=== PATIENT | female | born 1950 | race Caucasian/White ===

== ENCOUNTER 2019-12-31 09:37 | Outpatient (CLI) | payer OTHER, SELFPAY ==
--- NOTE | ~2019-12-31 | MM_ITS ---
EXAMINATION: MM screening [facility] BI w julián HISTORY: Screening mammogram TECHNIQUE: Craniocaudal and mediolateral oblique 3-D tomosynthesis images were obtained and synthetic 2-D images were generated. CAD analysis was submitted and interpreted. COMPARISON: 09/14/2018, 06/24/2017, 06/07/2016 BREAST PARENCHYMAL COMPOSITION: There are scattered areas of fibroglandular density. FINDINGS: Scattered benign-appearing calcifications are present. There is no evidence of suspicious m ass, calcification, or architectural distortion to suggest malignancy in either breast. There has bee n no suspicious interval change. IMPRESSION: 1. No mammographic evidence of malignancy. 2. Recommend routine screening mammography in one year. BI-RADS Category 2: Benign finding(s). Reviewed, dictated and finalized at location A.
== END 2019-12-31 09:38 | disposition home or self-care (01) ==
LOC: ANHIMG 09:39
PROVIDERS: PCP Physician Assistant; Visit Provider Nurse Practitioner Obstetrics & Gynecology
DX: Z12.31 Encounter for screening mammogram for malignant neoplasm of breast (principal)
CPT/HCPCS: 77063; 77067

== ENCOUNTER 2020-05-12 07:36 | Outpatient (CLI) | payer OTHER, SELFPAY ==
--- NOTE | ~2020-05-12 | DEXA_ITS ---
Bone Density Report Name: Liz Chun Age: 69 Sex: Female Ethnicity: White Date of : 1950 Indication: postmenopausal; height loss; Referring Provider: Zaynab, Jessica Torres Study: Bone densitometry was performed. Exam Date: May 12, 2020 Accession number: [id number] Bone Density: Region BMD T-score Z-score Classification AP Spine (L1-L4) 0.831 -2.0 0.1 Osteopenia Femoral Neck (Left) 0.582 -2.4 -0.7 Osteopenia Total Hip (Left) 0.712 -1.9 -0.5 Osteopenia Total Hip Bilateral Avg 0.699 -2.0 -0.6 Osteopenia Femoral Neck (Right) 0.582 -2.4 -0.7 Osteopenia Total Hip (Right) 0.684 -2.1 -0.7 Osteopenia World Health Organization criteria for BMD impression classify patients as: Normal (T-score at or above -1.0), Osteopenia (T-score between -1.0 and -2.5), or Osteoporosis (T-score at or below -2.5). 10-year Fracture Risk(1): Major Osteoporotic Fracture 13% Hip Fracture 2.9% Reported Risk Factors: [place] (), Neck BMD=0.582, BMI=23.4 (1) FRAX(R) Version 3.08. Fracture probability calculated for an untreated patient. Fracture probability may be lower if the patient has received treatment. Clinical Information Provided by Patient: Has used the following medications: Vitamin D, Calcium Patient maximum height was 63 Menopause Age: 46 Does not regularly consume dairy products Onset of menses at age 13 Number of children 2 Impression: The patient has low bone mass, based on the Left Femoral Neck T-score. The patient has an estimated ten-year risk of hip fracture of 2.9% and an estimated ten-year risk of major fracture of 13%, based on the WHO FRAX algorithm. Discussion: BONE DENSITY IS LOW AT ONE OR MORE SKELETAL SITES. This patient's lowest T-score is low at one or more skeletal sites. It meets the World Health Organization's (WHO) criteria for ?low bone mass? (T-score between -1.0 and -2.5). The patient's 10-year risk of fracture as calculated by FRAX is less than the threshold where pharmacological therapy is recommended by the National Osteoporosis Foundation (NOF). However, all treatment decisions require clinical judgment and consideration of individual patient factors, including patient preferences, comorbidities, previous drug use, risk factors not captured in the FRAX model (e.g., frailty, falls, vitamin D deficiency, increased bone turnover, interval significant decline in bone density) and possible under or overestimation of fracture risk by FRAX. The patient should follow a healthful lifestyle (good nutrition with adequate calcium and vitamin D, and appropriate weight-bearing exercise). Follow-Up: Consider repeating this study in 2 to 3 years to reassess this patient's status, or sooner if there is some new clinical indication. Reported by: TANMAY on 05/12/2020 8:01:00 AM.
== END 2020-05-12 07:37 | disposition home or self-care (01) ==
LOC: ANHIMG 07:40
PROVIDERS: PCP Physician Assistant; Visit Provider Nurse Practitioner Obstetrics & Gynecology
DX: Z78.0 Asymptomatic menopausal state (principal); M85.852 Other specified disorders of bone density and structure, left thigh; M85.851 Other specified disorders of bone density and structure, right thigh
CPT/HCPCS: 77080

== ENCOUNTER 2021-05-03 09:09 | Outpatient (CLI) | payer OTHER, SELFPAY ==
--- NOTE | ~2021-05-03 | MM_ITS ---
EXAMINATION: MM screening [facility] BI w julián HISTORY: Screening mammogram TECHNIQUE: Craniocaudal and mediolateral oblique 3-D tomosynthesis images were obtained and synthetic 2-D images were generated. CAD analysis was submitted and interpreted. COMPARISON: 12/31/2019, 09/14/2018, 06/24/2017 BREAST PARENCHYMAL COMPOSITION: There are scattered areas of fibroglandular density. FINDINGS: Scattered benign-appearing calcifications are present. There is no evidence of suspicious m ass, calcification, or architectural distortion to suggest malignancy in either breast. There has bee n no suspicious interval change. IMPRESSION: 1. No mammographic evidence of malignancy. 2. Recommend routine screening mammography in one year. BI-RADS Category 2: Benign finding(s). Reviewed, dictated and finalized at location A. 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
== END 2021-05-03 09:10 | disposition home or self-care (01) ==
LOC: ANHIMG 09:10
PROVIDERS: PCP Physician Assistant; Visit Provider Nurse Practitioner Obstetrics & Gynecology
DX: Z12.31 Encounter for screening mammogram for malignant neoplasm of breast (principal)
CPT/HCPCS: 77063; 77067

== ENCOUNTER 2022-01-21 03:42 | Emergency (ER) | payer OTHER, SELFPAY ==
--- NOTE | ~2022-01-21 | CT_ITS ---
EXAMINATION: CT abdomen pelvis wo con DATE: 01/21/2022 04:19 INDICATION: Hematuria. Dysuria. TECHNIQUE: Computed tomography (CT) of the abdomen and pelvis was performed without intravenous contr ast. Automated exposure control and iterative reconstruction technique were employed. The dose-length product was 265.79 mGy-cm. COMPARISON: None. FINDINGS: The visualized portions of the lung bases demonstrate minimal atelectasis. No pleural effus ion. The heart size is normal. No pericardial effusion. There is a small sliding hiatal hernia. The l iver and gallbladder are normal. There is a 2.0 cm cyst in the spleen. The pancreas, adrenal glands, and kidneys are normal. There is no urolithiasis. There is diverticulosis of the colon without eviden ce of diverticulitis. The appendix is not visualized. There are no pathologically enlarged lymph node s. There is no free intraperitoneal fluid. There is mild lumbar spondylosis. IMPRESSION: 1. Small sliding hiatal hernia. Reviewed, dictated and finalized at location A. 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
[2022-01-21 03:44] VITALS: BP 160/86; PULSE 84; RESP 16; TEMP 36.4; O2SAT 100
--- NOTE | 2022-01-21 03:55 | ED.FEMALEGU ---
HPI - Female Genitourinary General Chief complaint: Urogenital-Female Stated complaint: pain bleeding on urination Time Seen by Provider: 01/21/22 03:51 History of Present Illness HPI Narrative: 71-year-old female with remote history of kidney stone many years ago and UTI also many years ago presents with sudden onset dysuria and hematuria and abdominal pain and feeling of not be able to fully empty her bladder, as well as increased frequency. No fevers or chills, no nausea or vomiting Related Data Allergies Allergy/AdvReac Type Severity Reaction Status Date / Time No Known Allergies Allergy Unknown Unverified 12/04/18 09:09 Review of Systems Review of Systems: CONST: No fever. HEENT: No sore throat C/V: No chest pain RESP: No cough GI: Reports abdominal pain : Dysuria. M/S: No joint pain. SKIN: No rash. NEURO: [No headache or focal numbness or weakness] PSYCH: [No depression] [facility] Past Medical History Medical History (Updated 01/21/22 @ 06:10 by Jyoti Broderick MD) Nephrolithiasis Social History Social History (Updated 01/21/22 @ 03:58 by Jyoti Broderick MD) Smoking status: Never smoker Exam Narrative: EXAMINATION OF ORGAN SYSTEMS/BODY AREAS: Constitutional: Vital signs per nursing GENERAL:[No acute distress, non-toxic appearing.] HEAD: Normal with no signs of head trauma. EYES: EOMI, conjunctiva normal ENT: Hearing grossly intact LUNGS: Nonlabored breathing. HEART: [Regular rate and rhythm] ABD: [Soft], very minimally [tender to palpation] suprapubic BACK: No CVA tenderness EXT: Normal range of motion SKIN: [No rashes or lesions.] NEURO: [Alert and oriented x 3. No gross focal sensory or strength deficits.] PSYCH: Normal affect Course Vital Signs Vital signs: Vital Signs Temperature 97.6 F 01/21/22 03:44 Pulse Rate 84 01/21/22 03:44 Respiratory Rate 16 01/21/22 03:44 Blood Pressure 160/86 H 01/21/22 03:44 Pulse Oximetry 100 01/21/22 03:44 Oxygen Delivery Room Air 01/21/22 03:44 Temperature 97.6 F 01/21/22 03:44 Pulse Rate 84 01/21/22 03:44 Respiratory Rate 16 01/21/22 03:44 Blood Pressure 160/86 H 01/21/22 03:44 Pulse Oximetry 100 01/21/22 03:44 Oxygen Delivery Room Air 01/21/22 03:44 MDM - Female Genitourinary MDM Narrative Medical decision making narrative: 71 year-old patient presenting with suprapubic pain and urinary symptoms consistent with UTI, however given the sudden onset of discomfort and hematuria I will also obtain CT to rule out stone. Urinalysis is obtained and positive for signs of infection. Urine culture sent. Patient started on ceftriaxone, on re-evaluation is now resting comfortably and symptoms much improved. CT does not show any stone or other abnormality. She is given a prescription for antibiotics. She is strongly advised to return for any increasing or worsening pain, fevers or vomiting. They expressed understanding of instructions and is discharged in stable condition. Procedures: Pulse oximetry interpretation - not hypoxic. Review of medical records. Lab Data Result diagrams: 01/21/22 04:40 01/21/22 04:40 Labs: Lab Results 01/21/22 01/21/22 01/21/22 Range/Units 03:57 04:40 04:40 WBC 10.1 H (4.5-10.0) K/mm3 RBC 4.67 (4.2-5.4) M/mm3 Hgb 14.0 (12.0-15.0) g/dL Hct 42.0 (37.0-47.0) % MCV 89.9 (80-100) fl MCH 30.0 (26-34) pg MCHC 33.3 (32-36) g/dl RDW 13.1 (11.5-14.5) % Plt Count 190 (150-375) k/mm3 MPV 9.2 (7.4-10.4) fl Immature Gran % (Auto) 0.3 (0-0.5) % Neut % (Auto) 75.6 H (45.5-73.1) % Lymph % (Auto) 17.9 L (18.3-44.2) % [place] % (Auto) 5.5 (2.6-8.5) % Eos % (Auto) 0.5 (0-4.4) % Baso % (Auto) 0.2 (0.2-1.2) % Lymph # (Auto) 1.80 (0.9-3.2) K/mm3 [place] # (Auto) 0.6 (0.1-0.6) K/mm3 Eos # (Auto) 0.1 (0-0.3) K/mm3 Baso # (Auto) 0.0 (0.0-0.1) K/mm3 Abs Immat Gran (auto) 0.03
[2022-01-21 04:05] LABS: Add Urine Microscopic? YES; Appearance Urine Clear (Clear); Bilirubin Urine 3+ (Negative); Blood Urine 3+ (Negative); Color Urine Red (Yellow); Glucose Urine UA Negative (Negative); Ketones Urine 1+ mg/dL (Negative); Leukocyte Esterase Ur 3+ LEU/UL (Negative); Nitrate Urine Positive (Negative); Protein Urine 3+ mg/dL (Negative); Specific Grav Ur 1.015 (1.001-1.035); pH Urine 5.5 (5.0-9.0)
[2022-01-21 04:10] LABS: Bacteria Urine Trace /hpf; Mucus Urine Rare /lpf; RBC Urine >75 /hpf (0-2); WBC Clumps Urine Present /HPF; WBC Urine >75 /hpf
[2022-01-21] MEDS: cefTRIAXone 2 GM in SODIUM CHLORIDE 0.9% IV 100 ML 200 ML IVPB (04:42)
[2022-01-21] MEDS: SODIUM CHLORIDE 0.9% IV 1,000 ML 999 ML IV CONT (04:44)
[2022-01-21 04:48] LABS: Basophils Percent Auto 0.2 % (0.2-1.2); Eosinophils Absolute Auto 0.1 K/mm3 (0-0.3); Eosinophils Percent Auto 0.5 % (0-4.4); Immature Granulocyte Absolute 0.03 K/mm3 (0.00-0.031); Immature Granulocyte Percent A 0.3 % (0-0.5); Lymphocytes Percent Auto 17.9 % (18.3-44.2); Mean Corpuscular HGB Conc 33.3 g/dl (32-36); Mean Corpuscular Volume 89.9 fl (80-100); Mean Platelet Volume 9.2 fl (7.4-10.4); Monocytes Absolute Auto 0.6 K/mm3 (0.1-0.6); Monocytes Percent Auto 5.5 % (2.6-8.5); Neutrophils Absolute Auto 7.6 K/mm3 (1.3-6.7); Neutrophils Percent Auto 75.6 % (45.5-73.1); Platelet Count Result 190 k/mm3 (150-375); Red Blood Count 4.67 M/mm3 (4.2-5.4); Red Cell Distribution Width 13.1 % (11.5-14.5); White Blood Count 10.1 K/mm3 (4.5-10.0)
[2022-01-21 04:58] LABS: Anion Gap 8 mmol/L (8-16); Blood Urea Nitrogen 12 mg/dL (7-17); Calcium 9.4 mg/dL (8.4-10.2); Carbon Dioxide 27 mmol/L (22-30); Chloride 103 mmol/L (98-107); Estimated CRCL calculation 72 ml/min; Estimated Glomerular Filt Rate > 60; Glucose 106 mg/dL (65-110); Potassium 3.6 mmol/L (3.4-5.0); Sodium 138 mmol/L (137-145)
[2022-01-21] MEDS: MORPHINE SULFATE (*CRX) 4 MG/ML INJ IV PUSH (05:08)
[2022-01-21 06:43] VITALS: BP 139/69; PULSE 74; RESP 18; O2SAT 99
== END 2022-01-21 06:45 | disposition home or self-care (01) ==
PROVIDERS: Emergency Provider Emergency Medicine; PCP Physician Assistant
DX: N39.0 Urinary tract infection, site not specified (principal); Z87.442 Personal history of urinary calculi; K44.9 Diaphragmatic hernia without obstruction or gangrene
CPT/HCPCS: 36415; 74176; 80048; 81001; 85025; 87077; 87086; 87186; 96361; 96365; 96375; 99284; J0696; J2270; J7030

== ENCOUNTER 2022-06-27 07:48 | Outpatient (CLI) | payer OTHER, SELFPAY ==
--- NOTE | ~2022-06-27 | MM_ITS ---
EXAMINATION: MM screening [facility] BI w julián HISTORY: Screening mammogram TECHNIQUE: Craniocaudal and mediolateral oblique 3-D tomosynthesis images were obtained and synthetic 2-D images were generated. CAD analysis was submitted and interpreted. COMPARISON: 05/03/2021, 12/31/2019, 09/14/2018 bilateral screening mammogram examinations BREAST PARENCHYMAL COMPOSITION: There are scattered areas of fibroglandular density. FINDINGS: Relatively high density circumscribed approximately 5 mm mass in the posterior upper central left ellyn ast, suspicious. Diagnostic left mammogram and left breast ultrasound examination are recommended. Small stable bilateral axillary tail circumscribed benign-appearing lymph nodes. No other suspicious mass, architectural distortion, malignant calcification, skin thickening or retra ction is evident. Scattered bilateral benign calcifications. IMPRESSION: 1. New suspicious 5 mm circumscribed mass posteriorly in the upper central left breast 2. Diagnostic left mammogram and left breast ultrasound examination are recommended BI-RADS Category 0: Incomplete: Needs additional imaging evaluation. Reviewed, dictated and finalized at location A. IMPRESSION: 1. New suspicious 5 mm circumscribed mass posteriorly in the upper central left breast 2. Diagnostic left mammogram and left breast ultrasound examination are recomme nded BI-RADS Category 0: Incomplete: Needs additional imaging evaluation.
== END 2022-06-27 07:49 | disposition home or self-care (01) ==
LOC: ANHIMG 07:49
PROVIDERS: PCP Physician Assistant; Visit Provider Physician Assistant
DX: Z12.31 Encounter for screening mammogram for malignant neoplasm of breast (principal); N63.25 Unspecified lump in the left breast, overlapping quadrants
CPT/HCPCS: 77063; 77067

== ENCOUNTER 2022-07-23 13:34 | Outpatient (CLI) | payer OTHER, SELFPAY ==
--- NOTE | ~2022-07-23 | MMUS_ITS ---
EXAMINATION: MM diagnostic [facility]ara LT w julián, US breast LT limited HISTORY: Left breast mass on screening mammogram TECHNIQUE: Additional 3-D tomosynthesis images of the left breast were performed and synthetic 2-D im ages were generated. CAD analysis was submitted and interpreted. High resolution limited left breast ultrasound was performed. COMPARISON: 06/27/2022, 05/03/2021, 12/31/2019, 09/14/2018 FINDINGS: MAMMOGRAPHIC FINDINGS: There is a 6 mm oval, circumscribed, equal density mass in the posterior third of the upper breast at the 12:00 location 13 cm from the nipple. No suspicious calcification or architectural distortion ar e identified. ULTRASOUND: There is no evidence of focal abnormal solid or cystic mass in the vicinity of the mammographic findi ng in question. IMPRESSION: 1. Indeterminate left breast mass without sonographic correlate. 2. Stereotactic biopsy is recommended. BI-RADS category 4, suspicious findings. Reviewed, dictated and finalized at location A. IMPRESSION: 1. Indeterminate left breast mass without sonographic correlate. 2. Stereotactic biopsy is recommended. BI-RADS category 4, suspicious findings.
== END 2022-07-23 13:35 | disposition home or self-care (01) ==
PROVIDERS: PCP Physician Assistant; Visit Provider Physician Assistant
DX: R92.8 Other abnormal and inconclusive findings on diagnostic imaging of breast (principal)
CPT/HCPCS: 76642; 77061; 77065; G0279

== ENCOUNTER 2022-08-16 08:42 | Outpatient (CLI) | payer OTHER, SELFPAY ==
--- NOTE | ~2022-08-16 | DEXA_ITS ---
Bone Density Report Name: YOLI CHAVARRIA Age: 72 Sex: Female Ethnicity: White Date of : 1950 Indication: osteopenia; height loss; postmenopausal Referring Provider: VICENTE, CHERYL Study: Bone densitometry was performed. Exam Date: August 16, 2022 Accession number: [id number] Bone Density: Region BMD T-score Z-score Classification AP Spine(L1-L4) 0.853 -1.8 0.4 Osteopenia Femoral Neck (Left) 0.554 -2.7 -0.8 Osteoporosis Total Hip (Left) 0.696 -2.0 -0.5 Osteopenia Femoral Neck (Right) 0.556 -2.6 -0.8 Osteoporosis Total Hip (Right) 0.708 -1.9 -0.4 Osteopenia Total Hip Mean 0.702 -2.0 -0.5 Osteopenia World Health Organization criteria for BMD impression classify patients as: Normal (T-score at or above -1.0), Osteopenia (T-score between -1.0 and -2.5), or Osteoporosis (T-score at or below -2.5). 10-year Fracture Risk: FRAX not reported because: Some T-score for Spine Total or Hip Total or Femoral Neck at or below -2.5 Previous Exams: Region Exam Age BMD T-score BMD Change BMD Change Date g/cm2 vs Baseline vs Previous AP Spine (L1-L4) 08/16/2022 72 0.853 -1.8 0.022 (2.7%) 0.022 (2.7%) 05/12/2020 69 0.831 -2.0 Total Hip(Left) 08/16/2022 72 0.696 -2.0 -0.016 (-2.2%) -0.016 (-2.2%) 05/12/2020 69 0.712 -1.9 Total Hip(Right) 08/16/2022 72 0.708 -1.9 0.024 (3.5%) 0.024 (3.5%) 05/12/2020 69 0.684 -2.1 *Denotes significance at 95% confidence level, LSC for AP Spine = 0.022 g/cm2, LSC for Total Hip = 0.027 g/cm2 Clinical Information Provided by Patient: Has used the following medications: Evista (i.e. raloxifene), Vitamin D, Calcium Patient maximum height was 62 Menopause Age: 46 Does not regularly consume dairy products Onset of menses at age 13 Number of children 2 Impression: The patient has osteoporosis, based on the Left Femoral Neck T-score. No significant bone loss was observed. Discussion: INCREASED RISK OF FRACTURE. BONE DENSITY IS UNDESIRABLY LOW AT ONE OR MORE SKELETAL SITES, CONSISTENT WITH POSTMENOPAUSAL OSTEOPOROSIS. This patient's lowest T-score meets the World Health Organization's (WHO) criteria for osteoporosis at one or more sites (T-score -2.5 or below). In untreated patients, the risk of osteoporotic fracture increases approximately two-fold for each 1.0 SD decrease in T-score. Low bone density is not the only risk factor for fracture; also consider factors such as patient's age, fr
== END 2022-08-16 08:43 | disposition home or self-care (01) ==
PROVIDERS: PCP Physician Assistant; Visit Provider Physician Assistant
DX: Z78.0 Asymptomatic menopausal state (principal); M85.88 Other specified disorders of bone density and structure, other site; M81.0 Age-related osteoporosis without current pathological fracture; M85.852 Other specified disorders of bone density and structure, left thigh; M85.851 Other specified disorders of bone density and structure, right thigh
CPT/HCPCS: 77080

== ENCOUNTER 2023-10-01 15:04 | Outpatient (CLI) | payer OTHER, SELFPAY ==
--- NOTE | ~2023-10-01 | MM_ITS ---
EXAMINATION: MM screening [facility] BI w julián HISTORY: Screening TECHNIQUE: Craniocaudal and mediolateral oblique 3-D tomosynthesis images were obtained and synthetic 2-D images were generated. CAD analysis was submitted and interpreted. COMPARISON: Comparison to multiple prior studies sequentially, with oldest reviewed study dated 06/24. BREAST PARENCHYMAL COMPOSITION: Not dense: There are scattered areas of fibroglandular density. FINDINGS: The right breast is stable without evidence for malignancy. There are benign breast calcifi cations. There are developing masses in the upper outer quadrant of the left breast. IMPRESSION: 1. Developing left breast masses, upper outer quadrant posteriorly. 2. Additional mammographic views and possible breast ultrasound are recommended. BI-RADS Category 0: Incomplete: Needs additional imaging evaluation. Reviewed, dictated and finalized at location B. IMPRESSION: 1. Developing left breast masses, upper outer quadrant posteriorly. 2. Additional mammographic views and possible breast ultrasound are recommended . BI-RADS Category 0: Incomplete: Needs additional imaging evaluation.
== END 2023-10-01 15:05 | disposition home or self-care (01) ==
LOC: ANHIMG 15:04
PROVIDERS: PCP Physician Assistant; Visit Provider Physician Assistant
DX: Z12.31 Encounter for screening mammogram for malignant neoplasm of breast (principal); N63.21 Unspecified lump in the left breast, upper outer quadrant; R92.8 Other abnormal and inconclusive findings on diagnostic imaging of breast
CPT/HCPCS: 77063; 77067

== ENCOUNTER 2023-10-21 10:46 | Outpatient (CLI) | payer OTHER, SELFPAY ==
--- NOTE | ~2023-10-21 | MMUS_ITS ---
EXAMINATION: MM diagnostic sara LT w julián, US breast LT complete HISTORY: Follow-up left breast masses TECHNIQUE: Additional 3-D tomosynthesis images of the left breast were performed and synthetic 2-D im ages were generated. CAD analysis was submitted and interpreted. High resolution complete left breast ultrasound was performed. COMPARISON: Comparison to multiple prior studies sequentially, with oldest reviewed study dated 09/14/2018. BREAST PARENCHYMAL COMPOSITION: Not dense: There are scattered areas of fibroglandular density. FINDINGS: MAMMOGRAPHIC FINDINGS: There are multiple masses in the upper outer quadrant of the left breast in the subareolar location w hich are circumscribed radiolucent centrally, likely benign. There are scattered benign-appearing lef t breast calcifications. ULTRASOUND: Complete US of all 4 quadrants of the breast/s and retroareolar region was reviewed. At 12:00 in the subareolar location there is a 4 mm cyst. At 2:00, 7 cm from the nipple there is a 6 mm intramammary lymph node. No suspicious masses to suggest malignancy. IMPRESSION: 1. No evidence for malignancy in the left breast. Benign findings. 2. Routine yearly screening mammogram and regular clinical breast examination are recommended. BI-RADS Category 2: Benign finding(s). Reviewed, dictated and finalized at location B. IMPRESSION: 1. No evidence for malignancy in the left breast. Benign findings. 2. Routine yearly screening mammogram and regular clinical breast examination a re recommended. BI-RADS Category 2: Benign finding(s).
== END 2023-10-21 10:47 | disposition home or self-care (01) ==
PROVIDERS: PCP Physician Assistant; Visit Provider Physician Assistant
DX: R92.8 Other abnormal and inconclusive findings on diagnostic imaging of breast (principal)
CPT/HCPCS: 76641; 77061; 77065; G0279

== ENCOUNTER 2023-11-15 07:19 | Emergency (ER) | payer OTHER, SELFPAY ==
--- NOTE | ~2023-11-15 | CT_ITS ---
EXAMINATION: CT abdomen pelvis w con DATE: 11/15/2023 08:19 INDICATION: Right upper quadrant abdominal pain TECHNIQUE: Computed tomography (CT) of the abdomen and pelvis was performed with 100 mL Omnipaque-350 intravenous contrast. Automated exposure control and iterative reconstruction technique were employe d. The dose-length product was 200.87 mGy-cm. COMPARISON: 01/21/2022 FINDINGS: Mild discoid atelectasis at the lingula. Heart size is normal. No pericardial or pleural effusion. Sm all sliding-type hiatal hernia. Gallbladder is dilated to 4.6 cm but without evident wall thickening or pericholecystic inflammatory stranding to suggest acute cholecystitis. Common bile duct is dilated to 9 mm diameter and there is mild central intrahepatic ductal or ductal dilation. Interval developm ent of pancreatic atrophy and dilation of the main pancreatic duct at the body and tail the pancreas measuring up to 6 mm in maximal diameter and which terminates at a 2.4 x 1.7 cm hypoenhancing mass at the neck of the pancreas which is concerning for primary pancreatic cancer. Additional 13 mm hypoenh ancing mass at the head of the pancreas. Unchanged 2.1 cm splenic cyst. Bilateral adrenal glands and kidneys are normal. There is mild colonic diverticulosis with a sigmoid predominance. There is no ad jacent inflammatory change to suggest diverticulitis. Bladder, anteverted uterus and bilateral adnexa are unremarkable. No free intraperitoneal gas or fluid. No pathologically enlarged abdominal or pelv ic lymphadenopathy. Bones are unremarkable. IMPRESSION: 1. Couple hyperenhancing mass at the head and neck the pancreas the larger measuring 2.4 x 1.7 cm whi ch are concerning for pancreatic cancer and results in both biliary and pancreatic ductal dilation. C orrelate for tumor markers and consider either ERCP or endoscopic ultrasound guided biopsy. 2. Gallbladder dilated to 4.6 similar likely related to the biliary ductal dilation with no wall thic kening or pericholecystic inflammatory change to suggest acute cholecystitis. 3. Small sliding-type hiatal hernia. Reviewed, dictated and finalized at location A. IMPRESSION: 1. Couple hyperenhancing mass at the head and neck the pancreas the larger salma uring 2.4 x 1.7 cm which are concerning for pancreatic cancer and results in joseph th biliary and pancreatic ductal dilation. Correlate for tumor markers and cons ider either ERCP or endoscopic ultrasound guided biopsy. 2. Gallbladder dilated to 4.6 similar likely related to the biliary ductal dila tion with no wall thickening or pericholecystic inflammatory change to suggest acute cholecystitis. 3. Small sliding-type hiatal hernia.
[2023-11-15 07:32] VITALS: BP 149/82; PULSE 94; RESP 13; O2SAT 100
--- NOTE | 2023-11-15 07:35 | ECG_ITS ---
Test Date: 2023-11-15 07:38:49 Measurements Intervals [place] Rate: 84 P: 36 LA: 192 QRS: 9 QRSD: 101 T: 43 QT: 390 QTc: 464 Interpretive Statements SINUS RHYTHM LOW QRS VOLTAGE IN PRECORDIAL LEADS CONSIDER INFERIOR INFARCT, AGE INDETERMINATE BASELINE ARTIFACT- I, III, AVR, AVL, V4-V5 ABNORMAL ECG No previous ECG available for comparison Electronically Signed On 11-15-2023 07:54:20 CDT by Lele Hodges D.O.
[2023-11-15 07:43] LABS: Basophils Percent Auto 0.5 % (0.2-1.2); Eosinophils Percent Auto 0.5 % (0-4.4); Hemoglobin 16.2 g/dL (12.0-15.0); Immature Granulocyte Absolute 0.02 K/mm3 (0.00-0.031); Immature Granulocyte Percent A 0.2 % (0-0.5); Lymphocytes Absolute Auto 2.41 K/mm3 (0.9-3.2); Lymphocytes Percent Auto 29.4 % (18.3-44.2); Mean Corpuscular HGB Conc 33.1 g/dl (32-36); Mean Corpuscular Hemoglobin 30.4 pg (26-34); Mean Corpuscular Volume 91.9 fl (80-100); Mean Platelet Volume 9.5 fl (7.4-10.4); Monocytes Absolute Auto 0.6 K/mm3 (0.1-0.6); Monocytes Percent Auto 7.2 % (2.6-8.5); Neutrophils Absolute Auto 5.1 K/mm3 (1.3-6.7); Neutrophils Percent Auto 62.2 % (45.5-73.1); Platelet Count Result 236 k/mm3 (150-375); Red Blood Count 5.33 M/mm3 (4.2-5.4); Red Cell Distribution Width 12.9 % (11.5-14.5); White Blood Count 8.2 K/mm3 (4.5-10.0)
[2023-11-15 07:44] VITALS: BP 168/82; PULSE 81; RESP 16; TEMP 36.6; O2SAT 100
--- NOTE | 2023-11-15 07:50 | ED.GENADULT ---
HPI - General Adult General Chief complaint: Weakness Stated complaint: sick for a week Time Seen by Provider: 11/15/23 07:28 History of Present Illness HPI narrative: Patient is a 73-year-old female who presents ER with weakness. Over last week she has been feeling more fatigued. She had nausea and vomiting about 5 days ago. She has had some aching in her upper abdomen that radiates to the right side. No fevers or chills or sweats. No chest pain. She has missed some acid reflux medication dosages due to her nausea and vomiting. Patient was also recently diagnosed diabetic and has been trialing different medications. Related Data Allergies Allergy/AdvReac Type Severity Reaction Status Date / Time No Known Allergies Allergy Unknown Unverified 12/04/18 09:09 Review of Systems Review of Systems: All systems reviewed & are unremarkable except as noted in HPI and below Constitutional: Constitutional: Reports no additional constitutional complaints ENT: Reports system reviewed and no additional complaints, except as documented Cardiovascular: Cardiovascular: Reports no additional cardiovascular complaints Respiratory: Respiratory: Reports no additional respiratory complaints Gastrointestinal: Gastrointestinal: Reports abdominal pain, Denies heartburn, Reports nausea and Reports vomiting PMFSH Past Medical History Medical History (Updated 11/15/23 @ 10:16 by Venkat Dawson MD) Diabetes Nephrolithiasis Social History Social History (Updated 01/21/22 @ 03:58 by Jyoti Broderick MD) Smoking status: Never smoker Exam Narrative: GENERAL: Well-appearing, well-nourished, and in no acute distress. HEAD: Normocephalic, atraumatic. ENT: Mucous membranes moist. CHEST: Clear to auscultation. No respiratory distress. HEART: Regular rate and rhythm. Normal peripheral pulses. ABDOMEN: Soft, nontender, nondistended. EXTREMITIES: Normal range of motion. No edema. SKIN: Warm, dry, no rash. NEURO: Alert and oriented x3. PSYCH: Normal mood and affect. Course Course Emergency Course: 928: Informed of results. Discussed with Do. Accepted by Dr. Wright. Vital Signs Vital signs: Vital Signs Pulse Rate 94 11/15/23 07:32 Respiratory Rate 13 11/15/23 07:32 Blood Pressure 149/82 H 11/15/23 07:32 Pulse Oximetry 100 11/15/23 07:32 Temperature 97.7 F 11/15/23 09:31 Pulse Rate 96 11/15/23 09:31 Respiratory Rate 14 11/15/23 09:31 Blood Pressure 182/95 H 11/15/23 09:31 Pulse Oximetry 100 11/15/23 09:31 Oxygen Delivery Room Air 11/15/23 07:44 Medical Decision Making Vital Signs Vital Signs: Vital Signs Pulse Rate 94 11/15/23 07:32 Respiratory Rate 13 11/15/23 07:32 Blood Pressure 149/82 H 11/15/23 07:32 Pulse Oximetry 100 11/15/23 07:32 Temperature 97.7 F 11/15/23 09:31 Pulse Rate 96 11/15/23 09:31 Respiratory Rate 14 11/15/23 09:31 Blood Pressure 182/95 H 11/15/23 09:31 Pulse Oximetry 100 11/15/23 09:31 Oxygen Delivery Room Air 11/15/23 07:44 Lab Data 11/15/23 07:37 11/15/23 07:37 Labs: Lab Results 11/15/23 11/15/23 Range/Units 07:37 08:07 WBC 8.2 (4.5-10.0) K/mm3 RBC 5.33 (4.2-5.4) M/mm3 Hgb 16.2 H (12.0-15.0) g/dL Hct 49.0 H (37.0-47.0) % MCV 91.9 (80-100) fl MCH 30.4 (26-34) pg MCHC 33.1 (32-36) g/dl RDW 12.9 (11.5-14.5) % Plt Count 236 (150-375) k/mm3 MPV 9.5 (7.4-10.4) fl Immature Gran % (Auto) 0.2 (0-0.5) % Neut % (Auto) 62.2 (45.5-73.1) % Lymph % (Auto) 29.4 (18.3-44.2) % [place] % (Auto) 7.2 (2.6-8.5) % Eos % (Auto) 0.5 (0-4.4) % Baso % (Auto) 0.5 (0.2-1.2) % Lymph # (Auto) 2.41 (0.9-3.2) K/mm3 [place] # (Auto) 0.6 (0.1-0.6) K/mm3 Eos # (Auto) 0.0 (0-0.3) K/mm3 Baso # (Auto) 0.0 (0.0-0.1) K/mm3 Abs Immat Gran (auto) 0.02 (0.00-0.031) K/mm3 Absolute Neuts (auto) 5.1 (1.3-6.7) K/mm3 Absolute Nu
[2023-11-15 07:58] LABS: Alanine Aminotransferase 21 U/L (6-35); Albumin Level 4.7 g/dL (3.5-5.1); Alkaline Phosphatase 86 U/L (38-126); Anion Gap 12 mmol/L (4-12); Aspartate Amino Transferase 31 U/L (14-36); Bilirubin,Total 0.8 mg/dL (0.2-1.3); Blood Urea Nitrogen 5 mg/dL (7-17); Calcium 9.1 mg/dL (8.4-10.2); Carbon Dioxide 28 mmol/L (22-30); Chloride 93 mmol/L (98-107); Estimated CRCL calculation 52 ml/min; Estimated Glomerular Filt Rate > 60; Glucose 179 mg/dL (65-110); Lipase 52 U/L (23-300); Potassium 3.2 mmol/L (3.4-5.0); Sodium 133 mmol/L (137-145)
[2023-11-15 08:06] VITALS: BP 166/83; PULSE 81; RESP 20; TEMP 36.6; O2SAT 96
[2023-11-15 08:12] LABS: Add Urine Microscopic? NO; Appearance Urine Clear (Clear); Bilirubin Urine Negative (Negative); Blood Urine Negative (Negative); Color Urine Yellow (Yellow); Glucose Urine UA Trace mg/dL (Negative); Ketones Urine Trace mg/dL (Negative); Leukocyte Esterase Ur Negative LEU/UL (Negative); Nitrate Urine Negative (Negative); Protein Urine Negative (Negative); Specific Grav Ur 1.004 (1.001-1.035); Urobilinogen Urine 0.2 mg/dL (<2.0)
[2023-11-15 08:44] VITALS: BP 158/80; PULSE 89; RESP 14; TEMP 36.6; O2SAT 100
--- NOTE | 2023-11-15 09:28 | PC.NURSE ---
Pt accepted at [facility] Dr Wright [id number] Report [phone]
[2023-11-15 09:31] VITALS: BP 182/95; PULSE 96; RESP 14; TEMP 36.5; O2SAT 100
[2023-11-15 10:03] VITALS: BP 157/72; PULSE 86; RESP 19; TEMP 36.6; O2SAT 96
== END 2023-11-15 10:30 | disposition short-term general hospital (02) ==
PROVIDERS: Emergency Provider Emergency Medicine; PCP Physician Assistant
DX: K86.89 Other specified diseases of pancreas (principal); K83.1 Obstruction of bile duct; E11.9 Type 2 diabetes mellitus without complications; Z87.442 Personal history of urinary calculi; K44.9 Diaphragmatic hernia without obstruction or gangrene; R94.31 Abnormal electrocardiogram [ECG] [EKG]
CPT/HCPCS: 36415; 74177; 80053; 81003; 83690; 85025; 93005; 99285; Q9967

== ENCOUNTER 2024-05-27 10:14 | Outpatient (CLI) | payer OTHER, SELFPAY ==
--- NOTE | ~2024-05-27 | CT_ITS ---
EXAMINATION: CT abdomen pelvis w con DATE: 05/27/2024 13:45 INDICATION: Malignant neoplasm of the pancreas. TECHNIQUE: Computed tomography (CT) of the abdomen and pelvis was performed with 100 cc Omnipaque 350 intravenous contrast. The dose-length product was 254.35 mGy-cm. Automated exposure control and iter ative reconstruction technique were employed. COMPARISON: CT dated 11/15/2023 FINDINGS: There is right lower lobe airspace consolidation. There is atelectasis in the left lower lo bes. There is endobronchial thickening of the lower lobes. Findings suspicious for pneumonia. Small p leural effusions. There are localized areas of fluid adjacent to the esophagus in the lower thorax, l ikely ascites. There is moderate ascites. There is a stent in the common bile duct. There are persist ent ill-defined hypoenhancing masses of the pancreatic head and neck, consistent with known pancreati c malignancy. There is pancreatic ductal dilation. There is thickening of the gastric wall with small hiatal hernia. Cannot exclude gastritis. There is a low-density mass in the there are 3 new hypovasc ular masses of the right hepatic lobe, largest measures 1.7 cm, likely metastatic disease. There is a splenic cyst. The adrenal glands are unremarkable. There are subtle areas of hypoperfusion of the lo wer pole of the kidneys, suspicious for pyelonephritis or renal infarctions there is mild atheroscler osis without aneurysm. There is pneumobilia in the left hepatic lobe. There is mild intrahepatic bili aime dilatation of the right hepatic lobe. Gallbladder is present.. IMPRESSION: 1. Ill-defined hypovascular masses of the pancreatic head and neck, compatible with known pancreatic malignancy. Hypovascular lesions of the right hepatic lobe, concerning for metastatic disease. 2: Right lower lobe airspace consolidation with air bronchograms. Bilateral lower lobe atelectasis. F indings suspicious for pneumonia. 3: Small pleural effusions. 4:. Ascites. 5: Subtle areas of hypoperfusion bilaterally in the lower pole of the kidneys, suspicious for pyelone phritis versus renal infarctions. Reviewed, dictated and finalized at location A. IMPRESSION: 1. Ill-defined hypovascular masses of the pancreatic head and neck, compatible with known pancreatic malignancy. Hypovascular lesions of the right hepatic lobe, concerning for metastatic disea se. 2: Right lower lobe airspace consolidation with air bronchograms. Bilateral low er lobe atelectasis. Findings suspicious for pneumonia. 3: Small pleural effusions. 4:. Ascites. 5: Subtle areas of hypoperfusion bilaterally in the lower pole of the kidneys, suspicious for pyelonephritis versus renal infarctions.
[2024-05-27 11:14] LABS: Alanine Aminotransferase 62 U/L (6-35); Albumin Level 3.5 g/dL (3.5-5.1); Anion Gap 10 mmol/L (4-12); Aspartate Amino Transferase 112 U/L (14-36); Bilirubin,Total 2.6 mg/dL (0.2-1.3); Blood Urea Nitrogen 10 mg/dL (7-17); Calcium 8.6 mg/dL (8.4-10.2); Carbon Dioxide 27 mmol/L (22-30); Chloride 100 mmol/L (98-107); Estimated Glomerular Filt Rate > 60; Glucose 135 mg/dL (65-110); Potassium 3.4 mmol/L (3.4-5.0); Sodium 137 mmol/L (137-145)
--- OUTSIDE RECORDS SUMMARY | 2024-05-27 11:18 | XMS_ITS | Referral Summary ---
Author Organization [facility] [address] [facility] Address [address] [place] [address] Care Team Providers Care A P Supervisor Name Role Phone Jyoti Edge Primary Care Provider [phone] Encounters Date Type Department Care Team Description 05/26/2024 Orders Only [address] [place] [phone] Jyoti Edge PA Type 2 diabetes mellitus with hyperlipidemia (HCC) (Primary Dx); Fatigue, unspecified type 05/26/[address] [place] [phone] Jyoti Edge PA Additional Services Or Orders 05/15/2024 Results Follow-Up [address] [place] [phone] Jyoti Edge PA 05/12/2024 9:00 AM CDT Clinical Support [address] [place] [phone] Urinary tract infection without hematuria, site unspecified (Primary Dx) 05/11/[address] [place] [phone] Jyoti Edge PA 05/06/2024 Results Follow-Up [address] [place] [phone] Jyoti Edge PA 05/04/[address] [place] [phone] Jyoti Edge PA 05/04/2024 9:00 AM STRATEGIC PLANNING CONSULTANT Clinical Support [address] [place] [phone] Dysuria (Primary Dx) 04/07/2024 1:00 PM STRATEGIC PLANNING CONSULTANT Office Visit [address] [place] [phone] Jyoti Edge PA Gross hematuria (Primary Dx); Dysuria; Controlled type 2 diabetes mellitus without complication, without long-term current use of insulin (HCC); Malignant neoplasm of head of pancreas (HCC); Current moderate episode of major depressive disorder without prior episode (HCC); Type 2 diabetes mellitus with hyperlipidemia (HCC); BMI 20.0-20.9, adult 04/02/2024 10:00 AM STRATEGIC PLANNING CONSULTANT Clinical Support [address] [place] [phone] Dysuria (Primary Dx) 03/26/2024 9:00 AM STRATEGIC PLANNING CONSULTANT Office Visit [address] [place] [phone] Jyoti Edge PA Type 2 diabetes mellitus with hyperlipidemia (HCC) (Primary Dx); Controlled type 2 diabetes mellitus without complication, without long-term current use of insulin (HCC); Malignant neoplasm of head of pancreas (HCC); Current moderate episode of major depressive disorder without prior episode (HCC); Appetite loss; BMI 21.0-21.9, adult; Episode of recurrent major depressive disorder, unspecified depression episode severity 03/18/2024 Orders Only [address] [place] [phone] Jyoti Edge PA Controlled type 2 diabetes mellitus without complication, without long-term current use of insulin (HCC) (Primary Dx); Malignant neoplasm of head of pancreas (HCC); Other fatigue 03/15/[address] [facility] [address] [facility] [address] [place] [phone] Jyoti Edge PA Referral Request from Last 3 Months Allergies Active Allergy Reactions Criticality Noted Date Comments Penicillin V Potassium Unknown 06/18/2018 ? as child Medications multivitamin capsule Rx: Multivitamins Capsule Active cholecalciferol (VITAMIN D-3) 1,000 unit capsule 1 capsule (1,000 Units total) daily Active ascorbic acid, vitamin C, 500 mg capsule 500 mg Active L.acidophilus/B.bi fidum,longum (PROBIOTIC COLON SUPPORT ORAL) Rx: Probiotic Colon Support - Capsule Active vitamin E (AQUASOL E) 100 unit capsule 1 capsule (100 Units total) daily Active calcium carbonate (CALCIUM 500 ORAL) 500 mg daily Active blood-glucose meter misc Use daily for monitoring of diabetes. 1 each 09/08/19 24 Active blood glucose diagnostic (glucose blood) strip Check daily 100 each 11 09/08/19 24 025 Active lancets misc Check glucose daily 100 each 11 09/08/19 24 Active clotrimazole-betam ethasone (LOTRISONE) creamIndications:V aginal irritation Apply topically 2 (two) times a day 45 g 11/05/19 24 Active oxyCODONE (ROXICODONE) 5 mg immediate release tablet Take 1 tablet (5 mg total) by mouth every 4 (four) hours as needed 11/17/19 24 Active rosuvastatin (CRESTOR) 10 mg tablet Take 1 tablet (10 mg total) by mouth daily 90 tablet 2 12/02/19 24 Active Additional Information Patient not taking.Reported on 04/07/[address] (PROTONIX) 40 mg EC tablet TAKE 1 TABLET BY MOUTH TWICE A DAY 180 tablet 2 12/23/19 24 Active ondansetron ODT (ZOFRAN-ODT) 4 mg disintegrating tabletIndications: Nausea DISSOLVE 1 TABLET ON TONGUE EVERY 8 HOURS NEEDED FOR NAUSEA AND VOMITING 90 tablet 1 03/02/20 24 Active mirtazapine (REMERON) 7.5 mg tabletIndications: major depressive disorder Take 1 tablet (7.5 mg total) by mouth nightly 04/04/19 25 Active fluticasone propionate (FLONASE) 50 mcg/actuation nasal spray SPRAY 2 SPRAYS INTO EACH NOSTRIL EVERY DAY 48 mL 2 04/19/19 25 Active nitrofurantoin monohydrate (MACROBID) 100 mg capsuleIndications :Urinary tract infection with hematuria, site unspecified Take 1 capsule (100 mg total) by mouth 2 (two) times a day for 5 days 10 capsule 05/05/19 25 025 Active Problems Problem Noted Date Diagnosed Date Dysuria 04/18/2024 Assessment & Plan (04/18/2024 4:04 PM STRATEGIC PLANNING CONSULTANT): Check urine and culture today Gross hematuria 04/18/2024 Assessment & Plan (04/18/2024 4:01 PM STRATEGIC PLANNING CONSULTANT): Patient was started on Bactrim. Has not completely it it yet it looks as though it is sensitive. Had a cystoscope by [facility] which was essentially normal. Recommend to complete the Bactrim. Will go ahead and recent culture to see if anything new grows. Monitor closely and if she has any difficulty urinating notes large clots she is to follow up immediately with us or the urologist. She is in agreement with the plan Current moderate episode of major depressive disorder without prior episode 12/14/2023 Assessment & Plan (04/18/2024 4:01 PM STRATEGIC PLANNING CONSULTANT): Continue Remeron 7.5 for depression as well as helping with appetite Assessment & Plan (04/04/2024 8:39 PM STRATEGIC PLANNING CONSULTANT): Patient's appetite is down and mood is also down. Discussed treatment options and Remeron would help with both. Continue at 7.5 mg HS as will help with sleep as she is tolerating well. Reviewed risks benefits alternatives side effects and proper use. Follow up in a couple of months to reassess and may bump up the dose as needed. Assessment & Plan (12/14/2023 12:16 AM CDT): Patient has had some depression as well as weight loss. Remeron was started in the hospital. Continue same dose and continue to monitor Appetite loss 12/14/2023 Assessment & Plan (04/04/2024 8:39 PM STRATEGIC PLANNING CONSULTANT): Patient's appetite is down and mood is also down. Discussed treatment options and Remeron would help with both. Continue at 7.5 mg HS as will help with sleep as she is tolerating well. Reviewed risks benefits alternatives side effects and proper use. Follow up in a couple of months to reassess and may bump up the dose as needed. Assessment & Plan (12/14/2023 12:17 AM CDT): Patient has had decrease in appetite as well as weight loss accompanied a new diagnosis of pancreatic cancer. Remeron was started in the hospital and will continue. Patient states nausea has settled in her appetite is trying to return. Encouraged high-protein supplements and foods. Nausea 12/14/2023 Assessment & Plan (12/14/2023 12:17 AM CDT): Nausea has calmed down. Has Zofran available p.r.n. Malignant neoplasm of head of pancreas Assessment & Plan (04/18/2024 4:02 PM STRATEGIC PLANNING CONSULTANT): Continue per [facility] for pancreatic cancer management. She is awaiting lab results to determine next step in her treatment plan Assessment & Plan (04/04/2024 8:36 PM STRATEGIC PLANNING CONSULTANT): Newer diagnosis of pancreatic cancer. Continue to follow with [facility] as they are managing her currently. Assessment & Plan (12/14/2023 12:16 AM CDT): New diagnosis of pancreatic cancer Continue per the [facility] group 0 coordinating her care. Will await recommendations Controlled type 2 diabetes maya rain without complication, without long-term current use of insulin 12/14/2023 Assessment & Plan (04/18/2024 4:03 PM STRATEGIC PLANNING CONSULTANT): A1c in the office today was 6.0. This is without any medication. I discussed medication with patient but currently with all of the other treatment she is undergoing I recommend continuing diet management. Will continue to monitor closely and if she has random sugars at home that are running over 300 she is to call. Assessment & Plan (04/04/2024 8:37 PM STRATEGIC PLANNING CONSULTANT): Stressed importance of continued A1c control to minimize the intermediate designer effects of diabetes. Bring accuchecks to office when instructed to do so. Check A1c about every 3-6 months. Take medication as prescribed. Get annual eye exam. Encouraged CINDY/Statin if able to tolerate. Encouraged weight control and encouraged diabetic diet and exercise. Patient did have an elevated random blood sugar 170 but her most recent A1c in the office today is at 6.0. This is without medication. I recommend to continue without medication and continue to monitor. Stressed that this reading probably was related to post prandial elevation not that her diabetes is completely out of control. Encouraged her to continue to monitor and follow up if readings continue to remain elevated especially the fasting blood sugar. Assessment & Plan (12/14/2023 12:13 AM CDT): Stressed importance of continued A1c control to minimize the mcfp effects of diabetes. Bring accuchecks to office when instructed to do so. Check A1c about every 3-6 months. Take medication as prescribed. Get annual eye exam. Encouraged CINDY/Statin if able to tolerate. Encouraged weight control and encouraged diabetic diet and exercise. Last A1c was 7.9 She discontinued the SG LT due to vulvar irritation. Tried the right Hook's is but her appetite has decreased and she has continued to have nausea. Most recently she was diagnosed with pancreatic cancer. She has been off medications for the last few weeks and fastings have remained below 140. Will continue to monitor and if they begin to rise will consider adding medication. She is in agreement with the plan BMI 20.0-20.9, adult 10/14/2023 Assessment & Plan (04/18/2024 4:03 PM STRATEGIC PLANNING CONSULTANT): Patient continues with weight loss. She has known pancreatic cancer. Will see if the Remeron begins to perk her appetite. Encouraged increased protein and overall calories. Assessment & Plan (03/26/2024 9:14 AM STRATEGIC PLANNING CONSULTANT): Weight/BMI is in healthy range. Continue healthy lifestyle to maintain. Assessment & Plan (12/02/2023 1:45 PM CDT): Weight/BMI is in healthy range. Continue healthy lifestyle to maintain. Assessment & Plan (11/12/2023 7:16 AM CDT): Weight/BMI is in healthy range. Continue healthy lifestyle to maintain. Assessment & Plan (10/28/2023 2:06 PM CDT): Weight/BMI is in healthy range. Continue healthy lifestyle to maintain. Assessment & Plan (10/14/2023 3:46 PM CDT): Weight/BMI is in healthy range. Continue healthy lifestyle to maintain. Menopause 10/20/2018 Assessment & Plan (05/03/2022 1:32 PM STRATEGIC PLANNING CONSULTANT): Check DEXA Assessment & Plan (01/17/2020 12:01 PM STRATEGIC PLANNING CONSULTANT): Check DXA Assessment & Plan (10/20/2018 10:18 PM CDT): Check DXA Vitamin D deficiency 06/17/2018 Assessment & Plan (12/14/2023 12:16 AM CDT): Supplement Assessment & Plan (05/03/2023 11:12 PM STRATEGIC PLANNING CONSULTANT): Supplement vitamin-D Assessment & Plan (10/30/2022 8:40 AM CDT): Supplement Assessment & Plan (05/03/2022 1:31 PM STRATEGIC PLANNING CONSULTANT): Supplement Assessment & Plan (11/05/2021 9:16 PM CDT): Supplement Assessment & Plan (04/27/2021 9:33 AM STRATEGIC PLANNING CONSULTANT): Continue supplementation Assessment & Plan (07/17/2020 5:08 PM CDT): supplement Assessment & Plan (01/17/2020 9:32 AM STRATEGIC PLANNING CONSULTANT): supplement Assessment & Plan (10/20/2018 10:16 PM CDT): Supplement Gastroesophageal reflux disease without esophagi tis 06/17/2018 Assessment & Plan (12/14/2023 12:16 AM CDT): Continue pantoprazole p.r.n. Assessment & Plan (08/24/2023 6:23 PM CDT): Continue PPI Assessment & Plan (05/03/2023 11:12 PM STRATEGIC PLANNING CONSULTANT): Continue pantoprazole. Could try doubling up if she is having breakthrough symptoms or switch to omeprazole. If the breakthrough symptoms persist may need to go back to GI for an upper scope. She is to call if symptoms increase Assessment & Plan (10/30/2022 8:39 AM CDT): Continue pantoprazole. Patient is trying to taper and continues to have breakthrough symptoms. Recommend her following backup with GI. Assessment & Plan (05/03/2022 1:31 PM STRATEGIC PLANNING CONSULTANT): Continue PPI p.r.n.. Has breakthrough symptoms if she misses a day of dosing. Assessment & Plan (11/05/2021 9:16 PM CDT): Continue PPI patient try to taper and still has breakthrough symptoms Assessment & Plan (04/27/2021 9:33 AM STRATEGIC PLANNING CONSULTANT): Continue pantoprazole. Try to taper dosing had breakthrough symptoms so will continue with daily dosing. Assessment & Plan (12/18/2020 9:14 AM CDT): Continue Protonix. Assessment & Plan (07/17/2020 5:09 PM CDT): Continue PPI Assessment & Plan (01/17/2020 9:31 AM STRATEGIC PLANNING CONSULTANT): Stable. Using protonix 40mg bid. Recommend trying to reduce to every day dosing as her sxs tolerate. Assessment & Plan (10/20/2018 10:17 PM CDT): This is a significant, separately identifiable problem that was evaluated and managed on the same day as the wellness exam The GERD symptoms have not improved with the pantoprazole and Zantac. On the been persistent for the last 3-4 months so will refer to GI for further evaluation and probable upper GI. Assessment & Plan (06/20/2018 10:59 PM CDT): Improving. Continue the PPI. May use the Zantac prn. If sxs don't become fully controlled with diet, behavioral changes and medication will need to consider referral to GI. Type 2 diabetes mellitus with hyperlipidemia Assessment & Plan (04/18/2024 4:01 PM STRATEGIC PLANNING CONSULTANT): Patient is past due for labs. Assessment & Plan (04/04/2024 8:38 PM STRATEGIC PLANNING CONSULTANT): Encouraged patient to follow low fat/low chol diet like the Mediterranean diet. Increase good fats in the diet. Increase exercise. Monitor labs as needed. Patient is holding on the Crestor as she is undergoing treatment for her pancreatic cancer. Assessment & Plan (12/14/2023 12:16 AM CDT): Encouraged patient to follow low fat/low chol diet like the Mediterranean diet. Increase good fats in the diet. Increase exercise. Monitor labs as needed. Continue Crestor 10 Assessment & Plan (11/21/2023 4:31 PM CDT): Stressed importance of continued A1c control to minimize the intermediate designer effects of diabetes. Bring accuchecks to office when instructed to do so. Check A1c about every 3-6 months. Take medication as prescribed. Get annual eye exam. Encouraged CINDY/Statin if able to tolerate. Encouraged weight control and encouraged diabetic diet and exercise. Patient has been holding the Farxiga due to yeast vaginitis. Transitioning to Rybelsus 3 mg. Assessment & Plan (11/03/2023 8:10 PM CDT): Stressed importance of continued A1c control to minimize the mcfp effects of diabetes. Bring accuchecks to office when instructed to do so. Check A1c about every 3-6 months. Take medication as prescribed. Get annual eye exam. Encouraged CINDY/Statin if able to tolerate. Encouraged weight control and encouraged diabetic diet and exercise. Encouraged patient to follow low fat/low chol diet like the Mediterranean diet. Increase good fats in the diet. Increase exercise. Monitor labs as needed. Continue Crestor 10 Patient has been on Farxiga 10 mg. She has done great with diabetes control but is having a persistent yeast infection. Has done multiple rounds of Diflucan which help it subsided but it seems to continue to return as soon as she stops the Diflucan. I have had her stop the Farxiga at this point. Discussed additional medication treatment options including G LP is versus other medications. She would benefit from starting the G LP for further cardiovascular protection. She prefers the oral route. Rybelsus is 3 mg x 30 day samples provided. Will see if she qualifies for patient assistance as she did for the Farxiga. Assessment & Plan (10/27/2023 12:02 AM CDT): Stressed importance of continued A1c control to minimize the intermediate designer effects of diabetes. Bring accuchecks to office when instructed to do so. Check A1c about every 3-6 months. Take medication as prescribed. Get annual eye exam. Encouraged CINDY/Statin if able to tolerate. Encouraged weight control and encouraged diabetic diet and exercise. Encouraged patient to follow low fat/low chol diet like the Mediterranean diet. Increase good fats in the diet. Increase exercise. Monitor labs as needed. Continue with Crestor 10 mg. Continue with Farxiga 10 Assessment & Plan (08/24/2023 6:36 PM CDT): New Diagnosis Diabetes. Discussed with patient at length diabetes, pathogenesis, mcfp sequela, end organ damage, diet/exercise/weight loss, and medication options for treatment. Reviewed A1c, normal values, goals of treatment and need to monitor about every 90 days until well regulated. Discussed importance of annual DM eye exams. Reviewed benefits of CINDY and Statin as a diabetic. Discussed how DM affects the kidney's and ways to monitor. Reviewed increased CV risk and importance of tight control. Reviewed foot care and need to wear shoes to check feet on a regular basis to avoid intermediate designer problems. Offered referral to classifying machine operator. Decided together to start Farxiga 10mg one daily. Reviewed risks benefits alternatives side effects and proper use. Recheck CMP in 4-6 weeks. Recheck A1c in 3-4 months. Assessment & Plan (05/03/2023 11:13 PM STRATEGIC PLANNING CONSULTANT): Encouraged patient to follow low fat/low chol diet like the Mediterranean diet. Increase good fats in the diet. Increase exercise. Monitor labs as needed. Continue Crestor Assessment & Plan (10/30/2022 8:42 AM CDT): Encouraged patient to follow low fat/low chol diet like the Mediterranean diet. Increase good fats in the diet. Increase exercise. Monitor labs as needed. Continue Crestor Assessment & Plan (05/03/2022 1:31 PM STRATEGIC PLANNING CONSULTANT): Encouraged patient to follow low fat/low chol diet like the Mediterranean diet. Increase good fats in the diet. Increase exercise. Monitor labs as needed. Continue Crestor Assessment & Plan (11/05/2021 9:16 PM CDT): Encouraged patient to follow low fat/low chol diet like the Mediterranean diet. Increase good fats in the diet. Increase exercise. Monitor labs as needed. Continue Crestor Assessment & Plan (04/27/2021 9:33 AM STRATEGIC PLANNING CONSULTANT): Encouraged patient to follow fat/low chol diet like the Mediterranean diet. Increase good fats in the diet. Increase exercise. Monitor labs as needed. Continue Crestor Assessment & Plan (07/17/2020 7:17 AM CDT): Encouraged patient to follow fat/low chol diet like the Mediterranean diet. Increase good fats in the diet. Increase exercise. Monitor labs as needed. Continue crestor Assessment & Plan (01/17/2020 12:01 PM STRATEGIC PLANNING CONSULTANT): Encouraged patient to follow fat/low chol diet like the Mediterranean diet. Increase good fats in the diet. Increase exercise. Monitor labs as needed. Assessment & Plan (10/20/2018 10:16 PM CDT): Encouraged patient to continue low fat/low chol diet. Continue exercise. Increase good fats in the diet. Monitor labs as needed. Osteopenia of spine 06/17/2018 Assessment & Plan (05/03/2023 11:13 PM STRATEGIC PLANNING CONSULTANT): Continue monitoring DEXA. Will plan to recheck in 2024. Continue Evista. Had held the bisphosphonate due to stomach upset. Continue calcium vitamin-D and exercise Assessment & Plan (10/30/2022 8:39 AM CDT): Discussed DEXA results. T-scores are essentially stable. Has been on Evista without any problems. Did not tolerate Actonel due to stomach upset. Discussed adding Prolia versus monitoring 1 more year and continuing calcium vitamin-D and exercise. She would like to monitor and recheck DEXA in 2 years Assessment & Plan (05/03/2022 1:32 PM STRATEGIC PLANNING CONSULTANT): Continue calcium vitamin-D and exercise. Continue Evista continue to monitor DEXA Assessment & Plan (04/27/2021 9:33 AM STRATEGIC PLANNING CONSULTANT): Tolerating Evista. Continue calcium vitamin-D and exercise. Next bone density will be due in May of 2022 Assessment & Plan (12/18/2020 9:14 AM CDT): Tolerating in [place] without problems. Thinks she may have a few hot flashes from a but definitely tolerable. Continue calcium vitamin-D and exercise. Will recheck DEXA in about 2 years which would be May of 2022. Assessment & Plan (07/17/2020 5:12 PM CDT): This is a significant, separately identifiable problem that was evaluated and managed on the same day as the wellness exam DXA showed osteopenia. Encourage calcium (approximately 1500mg daily in divided doses or from your diet), vitamin D (supplement otc 5,000IU each day with a meal for best absorption) and weight bearing exercise (walking, dancing, gardening etc) to maintain the good bone strength. Discussed treatment options including a bisphosphonate versus Evista versus Prolia. Reviewed risks benefits alternatives and proper use of each. No history of blood clots. She is most interested in [place]. She is to start 1 tablet daily and continue calcium supplementation along with exercise. Will recheck her DXAabout 2 years to see if we have improvement of her bone density. Assessment & Plan (10/20/2018 10:15 PM CDT): Due to recheck DEXA. Continue calcium vitamin-D and exercise. Resolved Problems Problem Noted Date Diagnosed Date Resolved Date Positive depression screening 12/02/2023 12/14/2023 Dysuria 11/21/2023 12/14/2023 Assessment & Plan (11/21/2023 4:36 PM CDT): Will check urine to make sure we do not have a urinary tract infection Nausea and vomiting 11/21/2023 12/14/19 Assessment & Plan (11/21/2023 4:33 PM CDT): Patient has had persistent vaginitis secondary to Farxiga. She has stopped the Farxiga. Has been on and off Diflucan intermittently over the last month or so. In the last week she has noticed increased nausea and vomiting. She has stopped the Farxiga and the Diflucan. Will continue with a Rybelsus and have her do a BRAT diet to see if this allows the GI symptoms to settle and slowly add back food. Liver enzymes and electrolytes were very stable. Thyroid is functioning fine so will continue to monitor. She already has an appointment scheduled for next week Fatigue 10/27/2023 12/14/2023 Assessment & Plan (10/27/2023 12:02 AM CDT): Probably multifactorial. Check labs and followup to re-evaluate Vaginal irritation 10/27/2023 Assessment & Plan (11/21/2023 4:36 PM CDT): Persistent vaginal irritation which seems to be secondary to the Farxiga. She is now stop the Diflucan. Encouraged just a topical barrier cream and will monitor closely as she does feel like it is improving Assessment & Plan (11/03/2023 8:11 PM CDT): Vaginal yeast irritation secondary to the Farxiga. Stop the Farxiga. Will transition to Rybelsus Will send out Diflucan 1 tablet today and 1 tablet a day 5 to see if we can get this yeast gone with discontinuation of the Farxiga. If symptoms persist she is to call immediately Assessment & Plan (10/27/2023 12:03 AM CDT): Vaginal irritation and appears to be yeast driven. Probably related to the Farxiga use. She has good control though so I am hesitant to want to stop it at this point. Will put her on Diflucan taking tablets on day 1 5 and 10 to see if we can get this controlled. Continue with the Lotrisone. Keep area clean and dry. Will follow-up once she finishes the medication to see if we have good control. Facial skin lesion 05/03/2023 Assessment & Plan (05/03/2023 11:12 PM STRATEGIC PLANNING CONSULTANT): Patient has a skin tag on the right upper lid. It seems to be growing. Will refer to [facility] for evaluation and probable removal. Positive depression screening 04/29/2023 04/29/2023 Hyperglycemia 04/29/2023 05/03/2023 Medicare annual wellness visit, subsequent 04/29/2023 11/03/2023 Assessment & Plan (05/03/2023 11:13 PM STRATEGIC PLANNING CONSULTANT): Encouraged healthy lifestyle, good nutrition and exercise. Encouraged Calcium and Vitamin D and weight bearing exercise for bone health. Reviewed immunizations. Reviewed age appropirate screenings. Medicare Wellness Documentation is completed within the chart Diarrhea 10/30/2022 04/29/2023 Assessment & Plan (10/30/2022 8:42 AM CDT): Patient has had on and off diarrhea for years. Had family that tested positive for celiac. She requests the labs. Order placed Annual physical exam 10/30/2022 024 Assessment & Plan (10/30/2022 8:42 AM CDT): Encouraged healthy lifestyle, good nutrition and exercise. Encouraged Calcium and Vitamin D and weight bearing exercise for bone health. Reviewed immunizations Reviewed age appropirate screenings. Breast cancer screening by mammogram 05/03/2022 12/14/2023 Assessment & Plan (05/03/2023 11:13 PM STRATEGIC PLANNING CONSULTANT): Mammogram order provided Assessment & Plan (05/03/2022 1:32 PM STRATEGIC PLANNING CONSULTANT): Mammogram order provided Medicare annual wellness visit, subsequent 05/03/2022 10/30/2022 Assessment & Plan (05/03/2022 1:32 PM STRATEGIC PLANNING CONSULTANT): Encouraged healthy lifestyle, good nutrition and exercise. Encouraged Calcium and Vitamin D and weight bearing exercise for bone health. Reviewed immunizations. Reviewed age appropirate screenings. Medicare Wellness Documentation is completed within the chart BMI 24.0-24.9, adult 04/29/2022 023 Assessment & Plan (04/29/2022 8:05 AM STRATEGIC PLANNING CONSULTANT): Weight/BMI is in healthy range. Continue healthy lifestyle. Dysuria 02/03/2022 05/03/2022 Assessment & Plan (02/18/2022 9:14 AM STRATEGIC PLANNING CONSULTANT): Recommend test of cure in 7-10 days Assessment & Plan (02/03/2022 4:52 PM STRATEGIC PLANNING CONSULTANT): Recheck a UA today shows urine that is clear. Will send out Lotrisone for her external itching and if symptoms worsen or move internally we may need to Diflucan. Patient feels like she is pretty much back to her baseline. Encouraged good bladder care as well as making sure she gets enough fluids on a daily basis. If her symptoms return she is to follow up immediately. She is in agreement with the plan and verbalizes understanding. Acute vulvitis 02/03/2022 05/03/2022 Assessment & Plan (02/03/2022 4:54 PM STRATEGIC PLANNING CONSULTANT): Recheck a UA today shows urine that is clear. Will send out Lotrisone for her external itching and if symptoms worsen or move internally we may need to Diflucan. Patient feels like she is pretty much back to her baseline. Encouraged good bladder care as well as making sure she gets enough fluids on a daily basis. If her symptoms return she is to follow up immediately. She is in agreement with the plan and verbalizes understanding. Annual physical exam 11/05/2021 023 Assessment & Plan (11/05/2021 9:20 PM CDT): Encouraged healthy lifestyle, good nutrition and exercise. Encouraged Calcium and Vitamin D and weight bearing exercise for bone health. Reviewed immunizations Reviewed age appropirate screenings. Colon cancer screening 04/27/202105/02 Assessment & Plan (05/03/2022 1:32 PM STRATEGIC PLANNING CONSULTANT): Patient due for colon cancer screening. Prefers Cologuard. No family history of colon cancer polyps Assessment & Plan (11/05/2021 9:20 PM CDT): Due to repeat colon cancer screening at 11 years. Patient states she received information from the GI and plans to follow-up with him to set the appointment. Assessment & Plan (04/27/2021 9:34 AM STRATEGIC PLANNING CONSULTANT): Due for colon cancer screening. Prefers to follow back up with Dr. juan r Sams 04/27/2021 04/29/2023 Assessment & Plan (10/30/2022 8:42 AM CDT): Probably multifactorial. Check labs and followup to re-evaluate Assessment & Plan (11/05/2021 9:20 PM CDT): Probably multifactorial. Check labs and followup to re-evaluate Assessment & Plan (04/27/2021 9:34 AM STRATEGIC PLANNING CONSULTANT): Probably multifactorial. Check labs and followup to re-evaluate Medicare annual wellness visit, subsequent 04/27/2021 11/05/2021 Assessment & Plan (04/27/2021 9:35 AM STRATEGIC PLANNING CONSULTANT): Encouraged healthy lifestyle, good nutrition and exercise. Encouraged Calcium and Vitamin D and weight bearing exercise for bone health. Reviewed immunizations. Reviewed age appropirate screenings. Medicare Wellness Documentation is completed within the chart BMI 24.0-24.9, adult 04/25/2021 024 Assessment & Plan (08/14/2023 7:53 AM CDT): Weight/BMI is in healthy range. Continue healthy lifestyle to maintain. Assessment & Plan (05/03/2023 11:13 PM STRATEGIC PLANNING CONSULTANT): Weight/BMI is in healthy range. Continue healthy lifestyle to maintain. Assessment & Plan (11/05/2021 9:20 PM CDT): Weight/BMI is in healthy range. Continue healthy lifestyle to maintain. Weight/BMI is in healthy range. Continue healthy lifestyle to maintain. Assessment & Plan (04/25/2021 8:13 AM STRATEGIC PLANNING CONSULTANT): Weight/BMI is in healthy range. Continue healthy lifestyle to maintain. BMI 23.0-23.9, adult 12/18/2020 022 Assessment & Plan (12/18/2020 8:09 AM CDT): Weight/BMI is in healthy range. Continue healthy lifestyle to maintain. Flu vaccine need 12/18/2020 04/27/2021 Assessment & Plan (12/18/2020 9:20 AM CDT): Updated in office Annual physical exam 07/17/2020 022 Assessment & Plan (07/17/2020 7:17 AM CDT): Encouraged healthy lifestyle, good nutrition and exercise. Encouraged Calcium and Vitamin D and weight bearing exercise for bone health. Reviewed immunizations Reviewed age appropirate screenings. BMI 23.0-23.9, adult 07/17/2020 021 Assessment & Plan (07/17/2020 7:41 AM CDT): Weight/BMI is in healthy range. Continue healthy lifestyle to maintain. Hyperglycemia 01/17/2020 04/29/2023 Assessment & Plan (10/30/2022 8:42 AM CDT): Pre-diabetes/hyperglycemia is a precursor to Dm. Stressed importance of working on diet (decrease your simple sugars and one carbohydrate with each meal) and increase you exercise to achieve weight loss and this will help prevent you from progressing to diabetes. Assessment & Plan (11/05/2021 9:19 PM CDT): Pre-diabetes/hyperglycemia is a precursor to Dm. Stressed importance of working on diet (decrease your simple sugars and one carbohydrate with each meal) and increase you exercise to achieve weight loss and this will help prevent you from progressing to diabetes. Assessment & Plan (04/27/2021 9:34 AM STRATEGIC PLANNING CONSULTANT): Pre-diabetes/hyperglycemia is a precursor to Dm. Stressed importance of working on diet (decrease your simple sugars and one carbohydrate with each meal) and increase you exercise to achieve weight loss and this will help prevent you from progressing to diabetes. Assessment & Plan (07/17/2020 7:17 AM CDT): Pre-diabetes/hyperglycemia is a precursor to Dm. Stressed importance of working on diet (decrease your simple sugars and one carbohydrate with each meal) and increase you exercise to achieve weight loss and this will help prevent you from progressing to diabetes. Assessment & Plan (01/17/2020 12:03 PM STRATEGIC PLANNING CONSULTANT): Recheck labs Other fatigue 01/17/2020 07/17/2020 Assessment & Plan (01/17/2020 12:03 PM STRATEGIC PLANNING CONSULTANT): Probably multifactorial. Check labs and followup to re-evaluate Medicare annual wellness visit, subsequent 01/16/2020 07/17/2020 Assessment & Plan (01/17/2020 12:02 PM STRATEGIC PLANNING CONSULTANT): Encouraged healthy lifestyle, good nutrition and exercise. Encouraged Calcium and Vitamin D and weight bearing exercise for bone health. Reviewed immunizations. Reviewed age appropirate screenings. Medicare Wellness Documentation is completed within the chart Wart 04/09/2019 12/14/2023 Assessment & Plan (04/09/2019 12:05 PM STRATEGIC PLANNING CONSULTANT): Pt reassure this is a benign lesion. Eustachian tube disorder 04/05/2019 Assessment & Plan (04/05/2019 11:19 PM STRATEGIC PLANNING CONSULTANT): Start antihistamine, Mucinex and Steroid nasal spray. Push fluids. Rest. Supportive care. If sxs worsen or don\'t improve, pt is to followup in the office. Reviewed this is contributing to the dizziness. Thoughtful movement. Offered Antivert, pt declines. Monitor and call if sxs worsen or don't resolve. Changing skin lesion 04/05/2019 024 Assessment & Plan (11/05/2021 9:19 PM CDT): This is a significant, separately identifiable problem that was evaluated and managed on the same day as the wellness exam Patient has skin mass that is changing rapidly. It is on her breast but does not seem to be part of her breast. Since August 20 that his gone from nothing to at least 1 cm in diameter. Advised needs to be evaluated in excised immediately to determine etiology. She has seen [facility] in the past so will make the referral. My staff call to set the appointment. Patient is aware. Assessment & Plan (04/27/2021 9:34 AM STRATEGIC PLANNING CONSULTANT): Awaiting evaluation by Dermatology. Has appointment in May Assessment & Plan (12/18/2020 9:17 AM CDT): Patient is noting skin lesions changing her face and back. Will refer to Derm. Assessment & Plan (04/05/2019 11:21 PM STRATEGIC PLANNING CONSULTANT): Reviewed procedure with patient including process, possible scarring, risk for bleeding and or infection and that the procedure will remove the lesion but if pathology reveals a cancer, a larger more aggressive excision may be needed for definitive treatment. All questions were answered and pt desires to procede. Area was cleansed with Betadine x 3. Area infiltrated with Xylocane with Epi. Under sterile conditions the pedunculated 4mm lesion was clamped at the base and removed with iris scissors. Hemostasis obtained with silver nitrate. Bandaid applied. Pt tolerated well. Reviewed s/s infection and call immediately for any problems. Await pathology. BMI 23.0-23.9, adult 10/20/2018 021 Assessment & Plan (01/17/2020 12:02 PM STRATEGIC PLANNING CONSULTANT): Weight/BMI is in healthy range. Continue healthy lifestyle to maintain. Assessment & Plan (04/05/2019 10:47 AM STRATEGIC PLANNING CONSULTANT): Weight/BMI is in healthy range. Continue healthy lifestyle to maintain. Assessment & Plan (10/20/2018 1:48 PM CDT): BMI Follow-up includes: Discussed diet and exercising counseling. Need for 23-polyvalent pneum ococcal polysaccharide vaccine 10/20/2018 04/05/2019 Assessment & Plan (10/20/2018 10:17 PM CDT): Updated in the office Medicare annual wellness visit, initial 10/20/2018 04/05/2019 Assessment & Plan (10/20/2018 10:16 PM CDT): Encouraged healthy lifestyle, good nutrition and exercise. Encouraged Calcium and Vitamin D and weight bearing exercise for bone health. Reviewed immunizations Reviewed age appropirate screenings. Documentation is on the chart Allergic conjunctivitis of left eye 10/20/2018 12/14/2023 Assessment & Plan (10/20/2018 10:20 PM CDT): This is a significant, separately identifiable problem that was evaluated and managed on the same day as the wellness exam Start oral antihistamine. May start oral antihistamine and eye antihistamine. Patient prefers [id number] product like Zaditor monitor. Pre-diabetes 06/17/2018 01/17/2020 Assessment & Plan (01/17/2020 12:02 PM STRATEGIC PLANNING CONSULTANT): Pre-diabetes is a precursor to Dm. Stressed importance of working on diet (decrease your simple sugars and one carbohydrate with each meal) and increase you exercise to achieve weight loss and this will help prevent you from progressing to diabetes. Assessment & Plan (10/20/2018 10:17 PM CDT): This is a significant, separately identifiable problem that was evaluated and managed on the same day as the wellness exam Pre-diabetes is a precursor to Dm. Stressed importance of working on diet (decrease your simple sugars and one carbohydrate with each meal) and increase you exercise to achieve weight loss and this will help prevent you from progressing to diabetes. Immunizations Immunization Administration Dates Next Due COVID-19 mRNA ([employer]) 0.3 m L (30 mcg) vaccine (12 years and up) 11/05/2023 Influenza, Quad, Adjuvantate d, Intramuscular 12/03/2022,12/05/2021,12/06/2019 Influenza, Quadrivalent, Hig h Dose, Preservative Free, Intrr 12/18/2020 Influenza, Trivalent, Adjuva nted, Intramuscular 12/18/2023 Influenza, Trivalent, High D ose, Split, Preservative Free, Intramuscular 12/01/2018 Influenza, Unspecified 12/03/2022,2021,01/20/2020,01/01,12/01/2017(Deferred: Patient Refused) Flipps SARS-CoV-2 Monovalent Vaccination (12+ Yrs) PURPLE 12/03/2022 Pneumococcal Conjugate PCV 13 10/15/2016 Pneumococcal Polysaccharide PPV23 10/20/2018 RSV, Bivalent, Protein Subun it Rsvpref, Diluent (Abrysvo) 12/18/2023 Tdap 04/27/2015 ZOSTER LIVE 03/18/2013 ZOSTER Recombinant 06/14/2020,01/20/2020 Social History Tobacco Use Types Packs/Day Years Used Date Smoking Tobacco: Never Smokeless Tobacco: Never Tobacco Cessation:Counseling Given: Not Answered Alcohol Use Standard Drinks/Week Comments Yes 0 (1 standard drink = 0.6 oz pur e alcohol) Socially AUDIT-C Answer Date Recorded Q1: How often do you have a drink containing alcohol? Never 04/07/2024 Q2: How many drinks containi ng alcohol do you have on a typical day when you are drinking? Patient does not drink Q3: How often do you have si x or more drinks on one occasion? 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 file Not on file Not on file Last Filed Vital Signs Vital Sign Reading Time Taken Comments Blood Pressure 126/82 04/07/2024 1:03 PM STRATEGIC PLANNING CONSULTANT Pulse 98 04/07/2024 1:03 PM STRATEGIC PLANNING CONSULTANT Temperature 36.7 C (98.1 F) 04/07/2024 1:03 PM STRATEGIC PLANNING CONSULTANT Respiratory Rate 16 10/28/2023 2:04 PM CDT Oxygen Saturation 99% 04/07/2024 1:03 PM STRATEGIC PLANNING CONSULTANT Inhaled Oxygen Concentration - - Weight 51.2 kg (112 lb 14.4 oz) 04/07/2024 1:03 PM STRATEGIC PLANNING CONSULTANT Height 157.5 cm (5' 2 ) 04/07/2024 1:03 PM STRATEGIC PLANNING CONSULTANT Body Mass Index 20.65 04/07/2024 1:03 PM STRATEGIC PLANNING CONSULTANT Plan of Treatment Not on file Procedures Procedure Name Priority Date/Time Associated Diagnosis Comments ALBUMIN CREATININE RATIO, URINE Routine 05/26/2024 9:01 AM CDT Type 2 diabetes mellitus with hyperlipidemia (HCC) TSH Routine 05/26/2024 9:01 AM CDT Fatigue, unspecified type HEMOGLOBIN A1C Routine 05/26/2024 9:01 AM CDT Type 2 diabetes mellitus with hyperlipidemia (HCC) LIPID PANEL Routine 05/26/2024 9:01 AM CDT Type 2 diabetes mellitus with hyperlipidemia (HCC) POCT URINALYSIS DIPSTICK Routine 05/12/2024 8:35 AM CDT Urinary tract infection without hematuria, site unspecified URINE CULTURE Routine 05/12/2024 8:31 AM CDT Urinary tract infection without hematuria, site unspecified POCT URINALYSIS DIPSTICK Routine 05/04/2024 8:26 AM STRATEGIC PLANNING CONSULTANT Dysuria URINE CULTURE Routine 05/04/2024 8:22 AM STRATEGIC PLANNING CONSULTANT Dysuria URINE CULTURE Routine 04/07/2024 1:15 PM STRATEGIC PLANNING CONSULTANT Dysuria POCT URINALYSIS DIPSTICK Routine 04/07/2024 1:28 AM STRATEGIC PLANNING CONSULTANT Dysuria POCT URINALYSIS DIPSTICK Routine 04/02/2024 11:11 AM STRATEGIC PLANNING CONSULTANT Dysuria URINE CULTURE Routine 04/02/2024 9:39 AM STRATEGIC PLANNING CONSULTANT Dysuria POCT HEMOGLOBIN A1C Routine 03/26/2024 9 :10 AM STRATEGIC PLANNING CONSULTANT Type 2 diabetes mellitus with hyperlipidemia (HCC) COMPREHENSIVE METABOLIC PANEL Routine 11/11/2023 7:08 AM CDT Type 2 diabetes mellitus with hyperlipidemia (HCC) SCREENING MAMMOGRAM BILATERAL W RAJ Schedule Routine, Read Routine (OP Routine) 10/02/2023 2:09 PM CDT Breast cancer screening by mammogram HM DIABETES EYE EXAM Routine 09/10/2023 8:33 AM CDT DEXA AXIAL SKELETON BONE DENSITY 1 OR MORE SITES Schedule Routine, Read Routine (OP Routine) 08/16/2022 Menopause STOOL DNA COLOGUARD Routine 05/07/2022 8:00 AM STRATEGIC PLANNING CONSULTANT Colon cancer screening COLONOSCOPY Routine 05/03/2011 from Last 3 Months or Most Recently Relevant to Health Maintenance Results * Albumin Creatinine Ratio, Urine (05/26/2024 9:01 AM CDT) Creatinine, ur 169 20 - 275 mg/dL [facility] Microalbumin, ur 1.6 See Note: mg/dL [facility] Comment: Reference Range: Reference Range Not established Microalbumin/creat ratio 9 <30 mg/g creat [facility] Comment: The ADA defines abnormalities in albumin excretion as follows: Albuminuria Category Result (mg/g creatinine) Normal to Mildly increased <30 Moderately increased 30-299 Severely increased > OR = 300 The ADA recommends that at least two of three specimens collected within a 3-6 month period be abnormal before considering a patient to be within a diagnostic category. Urine 05/26/2024 9:01 AM CDT 05/26/2024 9:02 AM CDT Narrative [facility] - 05/27/2024 1:42 AM CDT FASTING:YES FASTING: YES Jyoti ZULETA [facility] URINE ORDERABLES Final Result [facility] [address] [place] [address] * TSH (05/26/2024 9:01 AM CDT) TSH 1.46 0.40 - 4.50 mIU/L [facility] Blood 05/26/2024 9:01 AM CDT 05/26/2024 9:02 AM CDT Narrative [facility] - 05/27/2024 1:42 AM CDT FASTING:YES FASTING: YES Jyoti ZULETA LAB BLOOD ORDERABLES Final Result [facility] [address] [place] [address] * (ABNORMAL) Hemoglobin A1c (05/26/2024 9:01 AM CDT) Hgb A1C 6.0(H) <5.7 % of total Hgb [facility] Comment: For someone without known diabetes, a hemoglobin A1c value between 5.7% and 6.4% is consistent with prediabetes and should be confirmed with a follow-up test. For someone with known diabetes, a value <7% indicates that their diabetes is well controlled. A1c targets should be individualized based on duration of diabetes, age, comorbid conditions, and other considerations. This assay result is consistent with an increased risk of diabetes. Currently, no consensus exists regarding use of hemoglobin A1c for diagnosis of diabetes for children. Blood 05/26/2024 9:01 AM CDT 05/26/2024 9:02 AM CDT Narrative [facility] - 05/27/2024 1:42 AM CDT FASTING:YES FASTING: YES Jyoti ZULETA LAB BLOOD ORDERABLES Final Result [facility] [address] [place] [address] * (ABNORMAL) Lipid panel (05/26/2024 9:01 AM CDT) [facility] Cholesterol 214(H) <200 mg/dL Pascual FanchimpHerlinda Jay HDL 41(L) > OR = 50 mg/dL [facility] Triglycerides 244(H) <150 mg/dL [facility] Comment: If a non-fasting specimen was collected, consider repeat triglyceride testing on a fasting specimen if clinically indicated. Mayito et al. J. of Clin. Lipidol. 2015;9:129-169. LDL 134(H) mg/dL (calc) Pascual FanchimpKamini Jay Comment: Reference range: <100 Desirable range <100 mg/dL for primary prevention; <70 mg/dL for patients with CHD or diabetic patients with > or = 2 CHD risk factors. LDL-C is now calculated using the Tre calculation, which is a validated novel method providing better accuracy than the Friedewald equation in the estimation of LDL-C. Terrance HAMILTON et al. KAJAL. 2013;310(19): 9956-3380 (http://education.fitmob/faq/HFC127) Chol/HDL ratio 5.2(H) <5.0 (calc) [facility] Non-HDL, (LDL+VLDL) 173(H) <130 mg/dL (calc) [facility] Comment: For patients with diabetes plus 1 major ASCVD risk factor, treating to a non-HDL-C goal of <100 mg/dL (LDL-C of <70 mg/dL) is considered a therapeutic option. Blood 05/26/2024 9:01 AM CDT 05/26/2024 9:02 AM CDT Narrative [facility] - 05/27/2024 1:42 AM CDT FASTING:YES FASTING: YES Jyoti ZULETA LAB BLOOD ORDERABLES Final Result [facility] [address] [place] [address] * (ABNORMAL) POCT urinalysis dipstick (05/12/2024 8:35 AM CDT) Glucose, ur, POC 100.(A) Negative MG/DL Bilirubin, ur, POC Large Negative, Small, Moderate, Large Ketones, ur, POC Negative Negative Specific Artesian, POC 1.025 1.003 - 1.030 Blood, ur, POC Negative Negative pH, ur, POC 6.0 5.0 - 8.0 Protein, ur, POC 30.(A) Negative Urobilinogen, urine, POC 0.2 0.2 - 1.0 mg/dL Nitrite, ur, POC Negative Negative Leukocytes, ur, POC Negative Negative Lot Number [id number] Urine 05/12/2024 8:35 AM CDT us Jyoti ZULETA POINT OF CARE TEST ORDERAB LES Final Result * Urine culture Urine, clean voided (05/12/2024 8:31 AM CDT) Urine culture [facility] Comment: CULTURE, URINE, ROUTINE Micro Number: [id number] Test Status: Final Specimen Source: Urine, clean catch Specimen Quality: Adequate Result: No Growth Urine, clean voided 05/12/2024 8:31 AM CDT 05/12/2024 11:44 PM CDT Jyoti ZULETA LAB MICROBIOLOGY - GENERAL ORDERABLES Final Result [facility] [address] [place] [address] * (ABNORMAL) POCT urinalysis dipstick (05/04/2024 8:26 AM STRATEGIC PLANNING CONSULTANT) Glucose, ur, POC 100.(A) Negative MG/DL Bilirubin, ur, POC Large Negative, Small, Moderate, Large Ketones, ur, POC Trace(A) Negative Specific Artesian, POC 1.025 1.003 - 1.030 Blood, ur, POC Large(A) Negative pH, ur, POC 6.0 5.0 - 8.0 Protein, ur, POC 100.(A) Negative Urobilinogen, urine, POC 2.0(A) 0.2 - 1.0 mg/dL Nitrite, ur, POC Negative Negative Leukocytes, ur, POC Large(A) Negative Lot Number [id number] Urine 05/04/2024 8:26 AM STRATEGIC PLANNING CONSULTANT Result [facility] Jyoti ZULETA POINT OF CARE TEST ORDERAB LES Final Result * (ABNORMAL) Urine culture Urine, clean voided (05/04/2024 8:22 AM STRATEGIC PLANNING CONSULTANT) Urine culture (A) [facility] Comment: CULTURE, URINE, ROUTINE Micro Number: [id number] Test Status: Final Specimen Source: Clean voided Specimen Quality: Adequate Result: Greater than 100,000 CFU/mL of Escherichia coli E.coli INT NORBERTO AMOX/CLAVULANATE S <=2 AMP/SULBACTAM S <=2 CEFAZOLIN NR <=4 2 CEFEPIME S <=0.12 CEFTAZIDIME S <=1 CEFTRIAXONE S <=0.25 CIPROFLOXACIN S <=0.06 GENTAMICIN S <=1 IMIPENEM S <=0.25 LEVOFLOXACIN S <=0.12 MEROPENEM S <=0.25 NITROFURANTOIN S <=16 PIP/TAZOBACTAM S <=4 TRIMETHOPRIM/SULFA S <=20 S = Susceptible I = Intermediate R = Resistant NS = Not susceptible SDD = Susceptible Dose Dependent * = Not Tested NR = Not Reported NN = See Therapy Comments THERAPY COMMENTS Note 1: For infections other than uncomplicated UTI caused by E. coli, K. pneumoniae or P. mirabilis: Cefazolin is resistant if NORBERTO > or = 8 mcg/mL. (Distinguishing susceptible versus intermediate for isolates with NORBERTO < or = 4 mcg/mL requires additional testing.) Note 2: For uncomplicated UTI caused by E. coli, K. pneumoniae or P. mirabilis: Cefazolin is susceptible if NORBERTO <32 mcg/mL and predicts susceptible to the oral agents cefaclor, cefdinir, cefpodoxime, cefprozil, cefuroxime, cephalexin and loracarbef. Urine, clean voided 05/04/2024 8:22 AM STRATEGIC PLANNING CONSULTANT 05/05/2024 3:42 AM STRATEGIC PLANNING CONSULTANT Jyoti ZULETA LAB MICROBIOLOGY - GENERAL ORDERABLES Final Result Performing Organization Address [facility]/ZIP Co de Phone Number [facility] [address] [place] [address] * Urine culture Urine, clean voided (04/07/2024 1:15 PM STRATEGIC PLANNING CONSULTANT) [facility] Comment: CULTURE, URINE, ROUTINE Micro Number: [id number] Test Status: Final Specimen Source: Urine, clean catch Specimen Quality: Adequate Result: No Growth Urine, clean voided 04/07/2024 1:15 PM STRATEGIC PLANNING CONSULTANT 04/08/2024 1:51 AM STRATEGIC PLANNING CONSULTANT Jyoti ZULETA LAB MICROBIOLOGY - GENERAL ORDERABLES Final Result [facility] [address] [place] [address] * (ABNORMAL) POCT urinalysis dipstick (04/07/2024 1:28 AM STRATEGIC PLANNING CONSULTANT) Pathologist [facility] Glucose, ur, POC 100.(A) Negative MG/DL Bilirubin, ur, POC Negative Negative, Small, Moderate, Large Ketones, ur, POC Negative Negative Specific Artesian, POC 1.030 1.003 - 1.030 Blood, ur, POC Trace(A) Negative pH, ur, POC 5.5 5.0 - 8.0 Protein, ur, POC Trace(A) Negative Urobilinogen, urine, POC 0.2 0.2 - 1.0 mg/dL Nitrite, ur, POC Negative Negative Leukocytes, ur, POC Negative Negative Lot Number [id number] Urine 04/07/2024 1:28 AM STRATEGIC PLANNING CONSULTANT us Jyoti ZULETA POINT OF CARE TEST ORDERAB LES Final Result * (ABNORMAL) POCT urinalysis dipstick (04/02/2024 11:11 AM STRATEGIC PLANNING CONSULTANT) Pathologist [facility] Glucose, ur, POC Negative Negative MG/DL Bilirubin, ur, POC Negative Negative, Small, Moderate, Large Ketones, ur, POC Negative Negative Specific Artesian, POC 1.020 1.003 - 1.030 Blood, ur, POC Trace(A) Negative pH, ur, POC 6.0 5.0 - 8.0 Protein, ur, POC Trace(A) Negative Urobilinogen, urine, POC 0.2 0.2 - 1.0 mg/dL Nitrite, ur, POC Negative Negative Leukocytes, ur, POC Trace(A) Negative Lot Number [id number] Urine 04/02/2024 11:1 1 AM STRATEGIC PLANNING CONSULTANT us Jyoti ZULETA POINT OF CARE TEST ORDERAB LES Final Result * Urine culture Urine, clean voided (04/02/2024 9:39 AM STRATEGIC PLANNING CONSULTANT) [facility]rine [facility] Comment: CULTURE, URINE, ROUTINE Micro Number: [id number] Test Status: Final Specimen Source: Not given Specimen Quality: Adequate Result: No Growth Urine, clean voided 04/02/2024 9:39 AM STRATEGIC PLANNING CONSULTANT 04/03/2024 4:43 AM STRATEGIC PLANNING CONSULTANT us Jyoti ZULETA LAB MICROBIOLOGY - GENERAL ORDERABLES Final Result [facility] [address] [place] [address] * (ABNORMAL) POCT hemoglobin A1c (03/26/2024 9:10 AM STRATEGIC PLANNING CONSULTANT) Hemoglobin A1C, POC 6.0 4.0 - 5.6 % Blood 03/26/2024 9:10 AM STRATEGIC PLANNING CONSULTANT us Jyoti ZULETA POINT OF CARE TEST ORDERAB LES Final Result * (ABNORMAL) Comprehensive metabolic panel (11/11/2023 7:08 AM CDT) Glucose 158(H) 65 - 99 mg/dL [facility] Comment: For someone without known diabetes, a glucose value >125 mg/dL indicates that they may have diabetes and this should be confirmed with a follow-up test. Fasting reference interval BUN 8 7 - 25 mg/dL [facility] [employer] timoteo Jay Creatinine 0.66 0.60 - 1.00 mg/dL [facility] eGFR 93 > OR = 60 mL/min/1.7 3m2 [facility] Fanch[facility]Kamini Jay BUN/creat ratio SEE NOTE: 6 - 22 (calc) [facility] Comment: Not Reported: BUN and Creatinine are within reference range. Sodium 139 135 - 146 mmol/L [facility] Potassium, pl 3.7 3.5 - 5.3 mmol/L [facility] Chloride 100 98 - 110 mmol/L [facility] CO2 28 20 - 32 mmol/L [facility] [employer] timoteo Jay Calcium 9.2 8.6 - 10.4 mg/dL TSO3 tiomteo Jay Protein, sr 6.9 6.1 - 8.1 g/dL [facility] timoteo Jay Albumin 4.5 3.6 - 5.1 g/dL [facility] GLOBULIN 2.4 1.9 - 3.7 g/dL (calc) [facility] Alb/glob ratio 1.9 1.0 - 2.5 (calc) [facility] Bilirubin, total 0.6 0.2 - 1.2 mg/dL [facility] Alk phos 72 37 - 153 U/L [facility] AST 21 10 - 35 U/L [facility] ALT (SGPT) 18 6 - 29 U/L [facility] timoteo Jay Blood 11/11/2023 7:08 AM CDT 11/11/2023 7:08 AM CDT Narrative [facility] - 11/12/2023 6:02 AM CDT FASTING:YES FASTING: YES Result [facility] Jyoti ZULETA LAB BLOOD ORDERABLES Final Result Performing Organization Address City/State/[facility] Co de Phone Number [facility] [address] [place] [address] * (ABNORMAL) Screening Mammogram Bilateral W Raj (10/02/2023 2:09 PM CDT) Anatomical Region Laterality Modality Breast Bilateral Mammography Impressions 10/02/2023 2:09 PM CDT Additional mammographic views and possible breast ultrasound recommended. BI-RADS Category 0: Incomplete. Needs additional imaging evaluation. Jyoti ZULETA IMG MAMMO PROCEDURES Final Result * DIABETES EYE EXAM (09/10/2023 8:33 AM CDT) SCRIBED DIABETIC DILATED EYE EXAM Normal Historical Provider HEALTH MAINTENANCE Edited Result - Final * (ABNORMAL) Dexa Axial Skeleton Bone Density 1 or 2 Site (08/16/2022) SCRIBED DXA T-SCORE -1.8 Anatomical Region Laterality Modality Body N/A Radiographic Eunice ging Jyoti ZULETA IMG DXA PROCEDURES Final R esult * Stool DNA - Cologuard (05/07/2022 8:00 AM STRATEGIC PLANNING CONSULTANT) Stool DNA - Cologuard Negative Negative [employer] (CLIA #:[id number]) Comment: NEGATIVE TEST RESULT. A negative Cologuard result indicates a low likelihood that a colorectal cancer (CRC) or advanced adenoma (adenomatous polyps with more advanced pre-malignant features) is present. The chance that a person with a negative Cologuard test has a colorectal cancer is less than 1 in 1500 (negative predictive value >99.9%) or has an advanced adenoma is less than 5.3% (negative predictive value 94.7%). These data are based on a prospective cross-sectional study of 10,000 individuals at average risk for colorectal cancer who were screened with both Cologuard and colonoscopy. (Job Guerin. et al, N Engl J Med 2014;370(14):5801-0164) The normal value (reference range) for this assay is negative. COLOGUARD RE-SCREENING RECOMMENDATION: Periodic colorectal cancer screening is an important part of preventive healthcare for asymptomatic individuals at average risk for colorectal cancer. Following a negative Cologuard result, the [place] Cancer Society and U.S. Multi-Society Task Force screening guidelines recommend a Cologuard re-screening interval of 3 years. References: [place] [employer] Society Guideline for Colorectal Cancer Screening: https://www.cancer.org/cancer/rqaus-jnnjsj-lhyjqt/iaawjhfnr-lvbemglkx-hgmgsik/ac s-rec ommendations.html.; Guy DK, Que CR, Nitesh CartagenaK, Colorectal Cancer Screening: Recommendations for Physicians and Patients from the U.S. Multi-Society Task Force on Colorectal Cancer Screening , Am J Gastroenterology 2017; 112:7417-0577. TEST DESCRIPTION: Composite algorithmic analysis of stool DNA-biomarkers with hemoglobin immunoassay. Quantitative values of individual biomarkers are not reportable and are not associated with individual biomarker result reference ranges. Cologuard is intended for colorectal cancer screening of adults of either sex, 45 years or older, who are at average-risk for colorectal cancer (CRC). Cologuard has been approved for use by the U.S. FDA. The performance of Cologuard was established in a cross sectional study of average-risk adults aged 50-84. Cologuard performance in patients ages 45 to 49 years was estimated by sub-group analysis of near-age groups. Colonoscopies performed for a positive result may find as the most clinically significant lesion: colorectal cancer [4.0%], advanced adenoma (including sessile serrated polyps greater than or equal to 1cm diameter) [20%] or non- advanced adenoma [31%]; or no colorectal neoplasia [45%]. These estimates are derived from a prospective cross-sectional screening study of 10,000 individuals at average risk for colorectal cancer who were screened with both Cologuard and colonoscopy. (Job Whitfield al, N Engl J Med 2014;370(14):5257-7133.) Cologuard may produce a false negative or false positive result (no colorectal cancer or precancerous polyp present at colonoscopy follow up). A negative Cologuard test result does not guarantee the absence of CRC or advanced adenoma (pre-cancer). The current Cologuard screening interval is every 3 years. ([place] Cancer Society and U.S. Multi-Society Task Force). Cologuard performance data in a 10,000 patient pivotal study using colonoscopy as the reference method can be accessed at the following location: www.[employer]/results. Additional description of the Cologuard test process, warnings and precautions can be found at www.[employer]TextRec[employer]rd.com. Stool 05/07/2022 8:00 AM STRATEGIC PLANNING CONSULTANT 05/08/2022 1:53 PM STRATEGIC PLANNING CONSULTANT Jyoti ZULETA LAB BODY FLUIDS AND STOOLS ORDERABLES Final Result [employer] (CLIA #:[id number]) [address] [address] * Colonoscopy (05/03/2011) Anatomical Region Laterality Modality Other Narrative 05/03/2011 Dr. Arceo -- 2011--->2021 Historical Provider ENDOSCOPY PROCEDURES Irina l Result from Last 3 Months or Most Recently Relevant to Health Maintenance Insurance Member Subscriber Plan / Payer ( fective 2016-Present) Name:Liz Chun Relation to Subscriber:Self Name:Liz Chun Payer ID:[id number] (NA) Type:MEDICARE RISK OTHER Address: [place] [id number] [facility] Member Subscriber Plan / Payer ( fective 2016-Present) Name:Lzi Chun Relation to Subscriber:Self Name:Liz Chun Payer ID:[id number] (NAIC) Type:MEDICARE RISK OTHER Address: [place] [id number] Care Teams A P Supervisor Relationship Specialty Start Date End Date Jyoti Edge PA [address] [facility] [address] [place] [address] PCP - General Internal Medicine 06/17/18
--- OUTSIDE RECORDS SUMMARY | 2024-05-27 11:18 | XMS_ITS | Clinical Summary ---
Author Organization [facility] Address [address] [place] [address] Care Team Providers Care J2Ee Android Developer Name Role Phone Unavailable Primary Care Provider Unavailabl e Source Comments [facility],non-owned Affiliates and Associated Physician Practices is amultiple site organization consisting of ambulatory clinics and hospital sitesin [place], [place], [place]. This disclosure is being madepursuant to the Care Everywhere program and may not contain all information available regarding this patient. Last updated [facility] [employer] Social History Tobacco Use Types Packs/Day Years Used Date Smoking Tobacco: Never Assessed Sex and Gender Information Value Date Recorded Sex Assigned at Not on file Gender Identity Not on file Sexual Orientation Not on file Plan of Treatment Health Maintenance Due Date Last Done Comments BONE DENSITY TESTING 1950 COLOGUARD (AGES 45-75) - COL ON CA SCREENING 1950 COLON MONITORING 1950 COLONOSCOPY - COLON CA SCREENING 1950 CT COLONOGRAPHY - COLON CA SCREENING 1950 Colorectal Cancer Screening 1950 FIT - COLON CA SCREENING 1950 FLEX SIG - COLON CA SCREENING 1950 LIPID TESTING 1950 MAMMOGRAM 1950 MEDICARE AWV 12 MONTHS 1950 HEPATITIS C SCREENING 08/01/1969 DTAP/TDAP/TD VACCINES (1 - Tdap) 08/05/1970 PNEUMOCOCCAL VACCINE 50+ (1 of 1 - PCV) 08/05/2001 ZOSTER VACCINE (1 of 2) 08/05/2001 COVID-19 VACCINE ( - 2023-2 5 season) 2023 INFLUENZA VACCINE (#1) 2023 DEPRESSION SCREENING 03/03/2024 MEDICARE AWV CALENDAR YEAR 2024 Respiratory Syncytial Virus (RSV) Vaccine Pt: or over 60 yrs (1 - 1-dose 75+ series) 08/05/2026 HEPATITIS B VACCINE Aged Out No longe r eligible based on patient's age to complete this topic HIB VACCINE Aged Out No longer eligi ble based on patient's age to complete this topic HPV VACCINE Aged Out No longer eligi ble based on patient's age to complete this topic MENINGOCOCCAL (Group B) VACC INE SHARED DECISION-MAKING Aged Out No longer eligibl e based on patient's age to complete this topic MENINGOCOCCAL GROUPS A/C/Y/W VACCINE Aged Out No longer eligible b ased on patient's age to complete this topic
--- OUTSIDE RECORDS SUMMARY | 2024-05-27 11:18 | XMS_ITS | Encounter Summary ---
Author Organization [facility] Healthcare Address [address] [place] [address] Care Team Providers Care Hide Dyer Name Role Phone Jyoti Edge Primary Care Provider [phone] Encounter Details Date Type Department Care Team (Late st Contact Info) Description 05/26/[address] 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 documented in this encounter Plan of Treatment Not on file documented as of this encounter Procedures Procedure Name Priority Date/Time Associated Diagnosis Comments ALBUMIN CREATININE RATIO, URINE Routine 05/26/2024 9:01 AM CDT Type 2 diabetes mellitus with hyperlipidemia (HCC) TSH Routine 05/26/2024 9:01 AM CDT Fatigue, unspecified type HEMOGLOBIN A1C Routine 05/26/2024 9:01 AM CDT Type 2 diabetes mellitus with hyperlipidemia (HCC) LIPID PANEL Routine 05/26/2024 9:01 AM CDT Type 2 diabetes mellitus with hyperlipidemia (HCC) documented in this encounter Results * Albumin Creatinine Ratio, Urine (05/26/2024 [...] Jyoti ZULETA LAB URINE ORDERABLES Final Result Performing Organization Address City/[facility]/ZIP Co de Phone Number [facility] [address] [address] * TSH (05/26/2024 9:01 AM CDT) Pathologist [facility] TSH 1.46 0.40 - 4.50 mIU/L [facility] Blood 05/26/2024 9:01 AM CDT 05/26/2024 9:02 AM CDT Narrative [facility] - 05/27/2024 1:42 AM CDT FASTING:YES FASTING: YES Jyoti ZULETA LAB BLOOD ORDERABLES Final Result Performing Organization Address [facility] de Phone Number [facility] [address] [place] [address] * (ABNORMAL) Hemoglobin A1c (05/26/2024 9:01 AM CDT) Pathologist [facility] Hgb A1C 6.0(H) <5.7 % of total Hgb [facility] Comment: For someone without known diabetes, a [...] BLOOD ORDERABLES Final Result Performing Organization Address [facility] Co de Phone Number [facility] [address] [place] [address] * (ABNORMAL) Lipid panel (05/26/2024 9:01 AM CDT) Cholesterol 214(H) <200 mg/dL [facility] HDL 41(L) > OR = 50 mg/dL [facility] Triglycerides 244(H) <150 mg/dL [facility] Comment: If a non-fasting specimen was collected, consider repeat triglyceride testing on a fasting specimen if clinically indicated. Mayito et al. J. of Clin. Lipidol. 2015;9:129-169. LDL 134(H) mg/dL (calc) [facility] Comment: Reference range: <100 Desirable range <100 mg/dL for primary prevention; <70 mg/dL for patients with CHD or diabetic patients with > or = 2 CHD risk factors. LDL-C is now calculated using the Tre calculation, which is a validated novel method providing better accuracy than the Friedewald equation in the estimation of LDL-C. Terrance HAMILTON et al. KAJAL. 2013;310(19): 2267-4712 (http://education.[employer]/faq/EMJ624) Chol/HDL ratio 5.2(H) <5.0 (calc) [facility] Non-HDL, (LDL+VLDL) 173(H) <130 mg/dL (calc) [facility] Comment: For patients with diabetes plus 1 major ASCVD risk factor, treating to a non-HDL-C goal of <100 mg/dL (LDL-C of <70 mg/dL) is considered a therapeutic option. Blood 05/26/2024 9:01 AM CDT 05/26/2024 9:02 AM CDT Narrative [facility] - 05/27/2024 1:42 AM CDT FASTING:YES FASTING: YES Jyoti ZULETA LAB BLOOD ORDERABLES Final Result [facility] [address] [place] [phone] documented in this encounter Visit Diagnoses Diagnosis Type 2 diabetes mellitus with hyperlipidemia (HCC)- Primary Fatigue, unspecified type documented in this encounter Care Teams Hide Dyer Relationship Specialty Start Date End Date Jyoti Edge PA [address] [facility] [address] [place] [address] PCP - General Internal Medicine 06/17/18 documented as of this encounter
--- OUTSIDE RECORDS SUMMARY | 2024-05-27 11:18 | XMS_ITS | Clinical Summary ---
Author Organization [facility] Address [address] [place] [address] Care Team Providers Care Building Stonecutter Name Role Phone Jyoti Edge Primary Care Provider [phone] Social History Tobacco Use Types Packs/Day Years Used Date Smoking Tobacco: Never Assessed Comments Unknown Sex and Gender Information Value Date Recorded Sex Assigned at Not on file Legal Sex Female 6:25 PM CDT Gender Identity Not on file Sexual Orientation Not on file Plan of Treatment Health Maintenance Due Date Last Done Comments Colorectal Cancer Screening Colonoscopy (10 Years) 1950 Hepatitis C 08/05/1969 Annual Medicare Wellness Visit 08/05/2016 COVID-19 Vaccine ( season) 2023 12/28/2021, 07/11/2021, 12/25/2020, Additional history exists Influenza Adult (#1) 2023 12/05/2021, 01/20/2020, 01/02/2020, Additional history exists Mammogram Screening 11/25/2024 11/25/2022, 3 DTaP, Tdap and Td Vaccines (2 - Td or Tdap) 04/27/2025 04/27/2015 RSV Immunization or 60+ Years (1 - 1-dose 75+ series) 08/05/2026 Pneumococcal Vaccine: 65+ Years Completed 10/20/2018, 10/15/2016 Zoster Vaccines Completed 06/14/2020, 01/01, 03/18/2013 Dexa Scan (General) Completed 08/16/2022 Meningococcal B Vaccine Aged Out No l onger eligible based on patient's age to complete this topic Meningococcal Vaccine Aged Out No omid jabier eligible based on patient's age to complete this topic RSV Immunizations Under 20 Months Aged Out No longer eligible based on patient's age to complete this topic Procedures Procedure Name Priority Date/Time Associated Diagnosis Comments MG JO ANNG Gabriel RAUL LT DIGI Routine 11/25/2022 8:03 AM CDT Abnormal mammogram of left breast from Last 3 Months or Most Recently Relevant to Health Maintenance Results * MG DIAG W RAUL LT DIGI (11/25/2022 8:03 AM CDT) Anatomical Region Laterality Modality Breast Left Mammography 11/25/2022 8:25 AM CDT Narrative 11/25/2022 8:26 AM CDT Examination: Digital left diagnostic mammogram with 3-D tomography Exam Date/Time: 11/25/2022 7:53 AM Reason For Exam: n/a Benign left biopsy in August 2022. This is the first follow-up exam. No personal or family history of breast cancer. No current complaints. Comparison: Postbiopsy diagnostic mammogram 08/22/2022 and free biopsy mammogram 07/23/2022 Technique: Digital diagnostic mammography of the left breast was performed in addition to 3-D Tomosynthesis technique. This study was read with the assistance of a computer-aided detection system. Tissue density: There are scattered areas of fibroglandular density. Findings:In the deep tissue of the central left breast just above the nipple line is the anterior border of a rounded small mass which has similar appearance to the prebiopsy exam. Interval resolution of surrounding postbiopsy changes. Biopsy marker is not visualized despite multiple attempts at obtaining more posterior tissue. No new area of focal asymmetry, dominant mass lesion, area of skin thickening, or cluster of suspicious appearing calcifications in the breast to suggest malignancy. ===== IMPRESSION: ===== 1. Resolution of postbiopsy changes with no new findings in the left breast to suggest malignancy Assessment: ACR BI-RADS 2 - BENIGN FINDING(S) Recommendation: 1:Routine Screening Bilateral Comments: Ordered By: SERGIO KIM Interpreted By: Yrn Whiting MD, 11/25/2022 8:25 AM Sergio Kim MD MAMMO Final Result from Last 3 Months or Most Recently Relevant to Health Maintenance Insurance [employer] Care Teams Building Stonecutter Relationship Specialty Start Date End Date Jyoti Edge PA [address] [place] [address] PCP - General PHYSICIAN MARKETING ANALYTICS ANALYST 08/21/22
--- OUTSIDE RECORDS SUMMARY | 2024-05-27 11:18 | XMS_ITS | Encounter Summary ---
Author Organization [facility] Healthcare Address [address] [place] [address] Care Team Providers Care Dyer Assistant Name Role Phone Jyoti Edge Primary Care Provider [phone] Reason for Visit * Reason Onset Date Comments Additional Services Or Orders 05/26/2024 Encounter Details Date Type Department Care Team (Late st Contact Info) Description 05/26/2024 Telephone [facility] Medical Group Family Medicine [address] [place] [address] Jyoti Edge PA [address] [place] [address] Additional Services Or Orders Social History Tobacco Use Types Packs/Day Years [...] on file 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 Called back line. Warm transferred. Does message need to be routed? No Reason for Warm Transfer: Referral/Order Issue: Patient or Facility staff (Facility staff=doctor's office, lab, or imaging center) is calling with request for urgent order or urgent referral issue (e.g. patient is at facility and there is an issue with order/referral missing) Practice Accepted the Warm Transfer? Yes Additional Comments If YES above, and no barriers. documented in this encounter Plan of Treatment Not on file documented as of this encounter Visit Diagnoses Not on filedocumented in this encounter Care Teams Dyer Assistant Relationship Specialty Start Date End Date Jyoti Edge PA [address] [place] [address] PCP - General Internal Medicine 06/17/18 documented as of this encounter
--- OUTSIDE RECORDS SUMMARY | 2024-05-27 11:18 | XMS_ITS | Encounter Summary ---
Author Organization [facility] Address [address] [place] [address] Care Team Providers Care Hardness Inspector Name Role Phone Unavailable Primary Care Provider Unavailabl e Encounter Details Date Type Department Care Team (Late st Contact Info) Description 11/14/2022 Lab Requisition [facility] - Derm[facility] Lab [address] [facility] [place] [address] Kay Segovia DO [address] [facility] [address] DEPT [place] [address] Social History Tobacco Use Types Packs/Day Years Used Date Smoking Tobacco: Never Assessed Sex and Gender Information Value Date Recorded Sex Assigned at Not on file Gender Identity Not on file Sexual Orientation Not on file documented as of this encounter Plan of Treatment Not on file documented as of this encounter Procedures Procedure Name Priority Date/Time Associated Diagnosis Comments DERMATOPATHOLOGY Routine 11/14/2022 10:2 1 AM CDT documented in this encounter Results * DERMATOPATHOLOGY (11/14/2022 10:21 AM CDT) Case Report Dermatopathology Report Case: [id number] Authorizing Provider: Kay Segovia DO Collected: 11/14/2022 10:21 AM Ordering Location: [facility] Lab Received: 11/15/2022 08:05 AM Pathologist: Princess Charles MD Specimen: Skin, right forearm 3 1:32 PM CDT DERMATOPATHOLOGY LABORATORY Final Diagnosis Specimen A. SKIN, right forearm: LICHEN PLANUS-LIKE KERATOSIS (BENIGN LICHENOID KERATOSIS) (L82.1) 3 1:32 PM CDT DERMATOPATHOLOGY LABORATORY Clinical History LPLK. R/O BCC 3 1:32 PM CDT DERMATOPATHOLOGY LABORATORY Gross Description Specimen A: Received is one formalin filled container labeled with the patient's name and designated right forearm. The specimen consists of a shave biopsy measuring 9x7x1 mm. Jar 0. 3 1:32 PM CDT DERMATOPATHOLOGY LABORATORY Microscopic Description Specimen A. SKIN, right forearm: The epidermis is mildly acanthotic. There is a lichenoid infiltrate with vacuolar changes of basilar keratinocytes and scattered necrotic keratinocytes. 3 1:32 PM CDT DERMATOPATHOLOGY LABORATORY Disclaimer An external and internal positive and negative controls are appropriate for the histochemical, immunohistochemical and immunofluorescence stain(s) in this case (if any), except where stated explicitly. The performance characteristics of the stain(s) cited in this report were developed and its performance characteristic determined by the Dermatopathology Laboratory at [facility], directed by Dr. Swati Pozo. These tests need not be, and therefore are not, approved by the [place] Food and Drug Administration. The tests are used for clinical purposes. Billing Codes Specimen Charges Stain Charges 42087 1 3 1:32 PM CDT DERMATOPATHOLOGY LABORATORY Embedded Images 3 1:32 PM CDT DERMATOPATHOLOGY LABORATORY Pathology/Cytolo gy TISSUE SPECIMEN FROM SKIN / Unknown 11/14/2022 10:21 AM CDT 11/15/2022 8:05 AM CDT Kay Segovia DO LAB - PATHOLOGY/C YTOLOGY ORDERABLES DERMATOPATHOLOGY LABORATORY [facility] - Department of Dermatology [facility] Medicine [address] [place] [address], [address] [phone] documented in this encounter Visit Diagnoses Not on filedocumented in this encounter
--- OUTSIDE RECORDS SUMMARY | 2024-05-27 11:18 | XMS_ITS ---
Author Organization [facility] Address [address] [place] [address] Phone Care Team Providers Care Heading Up Machine Operator Name Role Phone Unavailable Primary Care Provider Unavailabl e Active Problems Problem Noted Date Diagnosed Date Pancreatic adenocarcinoma 12/04/2023 Dysuria 11/21/2023 Protein-calorie malnutrition, severe 11/17/2023 Type 2 diabetes mellitus, wi thout long-term current use of insulin 11/15/2023 Hyperlipidemia 11/15/2023 GERD (gastroesophageal reflux disease) 4 Pancreatic mass 11/15/2023 Facial skin lesion 05/03/2023 Eustachian tube disorder 04/05/2019 Osteopenia of spine 06/17/2018 Vitamin D deficiency 06/17/2018 Current Treatment and Therapy Plans No current plan information found. Past Treatment and Therapy Plans ONCOLOGY TREATMENT Plan Name Start Date Discontinue Date Treatment Medications Discontinue Reason Plan Provider Cycles OP ONC PANCREA S_mFOLF IRINOX_ EVERY 14 DAYS 4 03/25/2024 fluorouracil (5-FU) continuous infusionirinotecan (CAMPTOSAR) IVPBleucovorin (WELLCOVORIN) IVPBoxaliplatin (ELOXATIN) IVPB Progression Zehra Smith MD 6 of 13 cycles started Lifetime Dose Tracking * Chemical Lifetime Dose Automatic Entry Manual Entr y Effective Dose 33.92 mSv 33.92 mSv 0 mSv Total DLP 2,186.6 DLP 2,186.6 DLP 0 DLP CTDIvol Max 30.18 mGy 30.18 mGy 0 mGy CTDIvol Min 2.12 mGy 2.12 mGy 0 mGy
--- OUTSIDE RECORDS SUMMARY | 2024-05-27 11:18 | XMS_ITS | Encounter Summary ---
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 Historical Provider Final Res ult documented in this encounter Visit Diagnoses Not on filedocumented in this encounter Care Teams Rigging And Controls Aircraft Mechanic Relationship Specialty Start Date End Date Jyoti Edge PA [address] [place], [place] [id number] PCP - General Internal Medicine 06/17/18 documented as of this encounter
--- OUTSIDE RECORDS SUMMARY | 2024-05-27 11:18 | XMS_ITS | Encounter Summary ---
Author Organization [facility] Healthcare Address [address] [place] [address] Care Team Providers Care Maintenance Fitter Name Role Phone Jyoti Edge Primary Care Provider +1- [phone] Encounter Details Date Type Department Care Team (Late st Contact Info) Description 05/06/2024 Results Follow-Up [facility] Medical Group Family Medicine [address] [place] [address] Jyoti Edge PA [address] [place] [address] Social History Tobacco Use Types Packs/Day Years [...] on file Legal 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 [address] [place] [address] PCP - General Internal Medicine 06/17/18 documented as of this encounter
--- OUTSIDE RECORDS SUMMARY | 2024-05-27 11:18 | XMS_ITS | Clinical Summary ---
Author Organization [facility] Address [address] [place] [address] Phone Care Team Providers Care Bucket Wash Operator Name Role Phone Unavailable Primary Care Provider Unavailabl e Allergies Active Allergy Reactions Criticality Noted Date Comments Penicillins Unknown 12/05/2023 Medications pantoprazole (PROTONIX) 40 mg Tablet, Delayed Release (E.C.) Take 40 mg by mouth 2 times daily. 04/02/19 24 Active rosuvastatin (CRESTOR) 10 mg tablet Take 10 mg by mouth daily. 10/30/19 23 Active oxyCODONE (ROXICODONE) 5 mg tabletIndications: Post-operative pain Take 1 Tablet (5 mg) by mouth every 4 hours as needed for Pain, Severe (For severe pain not covered by tylenol and Ibuprofen). Max Daily Amount: 30 mg 5 Tablet 12/05/19 24 Active lidocaine-prilocai ne (EMLA) 2.5-2.5 % CreamIndications:P ancreatic adenocarcinoma (CMS/HCC) Apply to affected area see administration instructions. Apply 30-45 minutes prior to chemotherapy appointment, cover with plastic wrap. 30 Gram 1 12/10/19 24 Active loperamide (IMODIUM) 2 mg capsuleIndications :Pancreatic adenocarcinoma (CMS/HCC) Take 2 capsules (4 mg) with onset of diarrhea follow by 1 capsule (4 mg) every 2-4 hours as needed for diarrhea. No more than 8 capsules in 24 hours. 90 Capsule 2 12/10/19 24 Active loratadine-pseudoe phedrine (CLARITIN-D) 10-240 mg Extended Release 24 hour tabletIndications: Pancreatic adenocarcinoma (CMS/HCC) Take one tablet on days 3-7 of each Chemotherapy cycle. 30 Tablet 1 12/10/19 24 Active [id number]. 5 mg/5 mL-viscous lidocaine-Maalox 1:1:1 (MAGIC MOUTHWASH) oral suspension compound Swish and spit 5 ml three times a day as needed for mouth sores 240 mL 12/31/19 24 Active diphenoxylate-atro pine 2.5 mg-0.025 mg tabletIndications: Chemotherapy induced diarrhea Take 1 Tablet by mouth 4 times daily as needed for Diarrhea/Loose Stools. 60 Tablet 1 01/07/20 24 Active prochlorperazine maleate (Compazine) 10 mg tabletIndications: Pancreatic adenocarcinoma (CMS/HCC) Take 1 Tablet (10 mg) by mouth every 6 hours as needed for Nausea/Emesis. 30 Tablet 1 01/21/20 24 Active mirtazapine (REMERON) 7.5 mg tabletIndications: Cancer cachexia Take 1 Tablet (7.5 mg) by mouth daily at bedtime. 30 Tablet 02/18/20 24 Active megestroL (MEGACE) 400 mg/10 mL (40 mg/mL) suspensionIndicati ons:Cancer cachexia Take 20 mL (800 mg) by mouth daily. 480 mL 1 02/18/20 24 Active ondansetron (ZOFRAN) 8 mg TabletIndications: Pancreatic adenocarcinoma (CMS/HCC) Take 1 Tablet (8 mg) by mouth every 8 hours as needed for Nausea/Emesis. 60 Tablet 1 03/24/19 25 Active Active Problems Problem Noted Date Diagnosed Date Pancreatic adenocarcinoma 12/04/2023 Dysuria 11/21/2023 Protein-calorie malnutrition, severe 11/17/2023 Type 2 diabetes mellitus, wi thout long-term current use of insulin 11/15/2023 Hyperlipidemia 11/15/2023 GERD (gastroesophageal reflux disease) Pancreatic mass 11/15/2023 Facial skin lesion 05/03/2023 Eustachian tube disorder 04/05/2019 Osteopenia of spine 06/17/2018 Vitamin D deficiency 06/17/2018 Encounters Date Type Department Care Team Description 05/13/2024 11:00 AM CDT - 05/13/2024 12:00 PM CDT Surgery [facility] GI Lab [address] [place] [address] Reginald Slater MD CHOLANGIOPANCREATOGRAPHY RETROGRADE ENDOSCOPIC 05/13/2024 10:31 AM CDT Anesthesia Event [facility] GI [facility] [address] [place] [facility] [place] [address] Unruly Shearer MD Smolievskaya, DaryaSIMBA-Silvano 05/13/2024 9:48 AM CDT - 05/13/2024 12:48 PM CDT Hospital Encounter [facility] GI Lab [address] [place] [address] Reginald Slater MD Biliary obstruction (CMS/HCC) Discharge Disposition: Home or Self Care 05/06/2024 Telephone [facility] Oncology and Hematology [facility] [address] [place] [address] Tori Figueroa MD lab orders 04/20/2024 1:00 PM WRINGER OPERATOR Video Visit [facility] Surgical Oncology [place] [address] [place] [address] Jose Salazar MD Pancreatic adenocarcinoma (CMS/HCC) (Primary Dx) 04/16/2024 8:12 AM WRINGER OPERATOR - 04/16/2024 11:59 PM WRINGER OPERATOR Hospital Encounter [facility] MRI [address] [place] [address] Tori Figueroa MD Discharge Disposition: Home or Self Care 04/14/2024 External Device Data STL ABSTRACTION Provider, Abstract 04/13/2024 Chart Note [facility] Oncology Patient Navigation [address] [place] [address] Alva Varela, KEANU Nurse Navigation (GI Oncology /) 04/13/2024 External Device Data STL ABSTRACTION Provider, Abstract 04/12/2024 External Device Data STL ABSTRACTION Provider, Abstract 04/11/2024 External Device Data STL ABSTRACTION Provider, Abstract 04/10/2024 External Device Data STL ABSTRACTION Provider, Abstract 04/09/2024 Telephone [facility] Oncology and Hematology [facility] [address] [place] [address] Tori Figueroa MD claustophobia (Patient did not get her MRI due to claustophobia which she forgot to mention. Spoke with Dr. Figueroa and she will prescribe Ativan for patient.) 04/09/2024 External Device Data STL ABSTRACTION Provider, Abstract 04/08/2024 External Device Data STL ABSTRACTION Provider, Abstract 04/07/2024 Chart Note [facility] Oncology Patient Navigation [address] [place] [address] Alva Varela, RN Nurse Navigation (GI Oncology /) 04/07/2024 External Device Data STL ABSTRACTION Provider, Abstract 04/06/2024 Chart Note [facility] Oncology Patient Navigation [address] [place] [address] Alva Varela, RN Nurse Navigation (GI Oncology /) 04/06/2024 External Device Data STL ABSTRACTION Provider, Abstract 04/05/2024 External Device Data STL ABSTRACTION Provider, Abstract 04/04/2024 External Device Data STL ABSTRACTION Provider, Abstract 04/02/2024 External Device Data STL ABSTRACTION Provider, Abstract 04/01/2024 External Device Data STL ABSTRACTION Provider, Abstract 03/31/2024 External Device Data STL ABSTRACTION Provider, Abstract 03/30/2024 External Device Data STL ABSTRACTION Provider, Abstract 03/30/2024 External Device Data STL ABSTRACTION Provider, Abstract 03/29/2024 Chart Note [facility] Oncology Patient Navigation [address] [place] [address] Alva Varela, RN Nurse Navigation (GI Oncology /) 03/29/2024 External Device Data STL ABSTRACTION Provider, Abstract 03/28/2024 External Device Data STL ABSTRACTION Provider, Abstract 03/27/2024 External Device Data STL ABSTRACTION Provider, Abstract 03/26/2024 External Device Data STL ABSTRACTION Provider, Abstract 03/24/2024 8:00 AM WRINGER OPERATOR Office Visit [facility] Oncology and Hematology [facility] [address] [place] [address] Zehra Smith MD Chemotherapy-induced thrombocytopenia (Primary Dx); Pancreatic adenocarcinoma (CMS/HCC); Anemia associated with chemotherapy 03/24/2024 7:00 AM WRINGER OPERATOR - 03/24/2024 11:59 PM WRINGER OPERATOR Hospital Encounter [facility] 2nd Fl [address] [place] [address] MinZehra MD Discharge Disposition: Home or Self Care 03/24/2024 External Device Data STL ABSTRACTION Provider, Abstract 03/23/2024 External Device Data STL ABSTRACTION Provider, Abstract 03/22/2024 External Device Data STL ABSTRACTION Provider, Abstract 03/21/2024 External Device Data STL ABSTRACTION Provider, Abstract 03/20/2024 External Device Data STL ABSTRACTION Provider, Abstract 03/19/2024 1:15 PM WRINGER OPERATOR Office Visit [facility] Urology at the [facility] [address] [place] [address] Marisela Moore MD Hematuria, unspecified type (Primary Dx) 03/19/2024 10:44 AM WRINGER OPERATOR - 03/19/2024 11:59 PM WRINGER OPERATOR Hospital Encounter [facility] CT Scan S Counts Include [facility] [address] [place] [address] Zehra Smith MD Discharge Disposition: Home or Self Care 03/19/2024 External Device Data STL ABSTRACTION Provider, Abstract 03/18/2024 Chart Note [facility] Oncology Patient Navigation [address] [place] [address] Alva Varela, RN Nurse Navigation 03/18/2024 Results Follow-Up [facility] Oncology and Hematology [facility] [address] [place] [address] Beatris Vega, DEMETRA URINALYSIS WITH REFLEX CULTURE, CBC WITH DIFFERENTIAL, COMPREHENSIVE METABOLIC PANEL, Additional followed-up results: 2 03/18/2024 External Device Data STL ABSTRACTION Provider, Abstract 03/17/2024 External Device Data STL ABSTRACTION Provider, Abstract 03/16/2024 External Device Data STL ABSTRACTION Provider, Abstract 03/16/2024 External Device Data STL ABSTRACTION Provider, Abstract 03/15/2024 1:00 PM WRINGER OPERATOR Office Visit [facility] Oncology and Hematology [facility] [address] [place] [address] Zehra Smith MD Smith, Lauren E, DEMETRA Gross hematuria (Primary Dx); Pancreatic adenocarcinoma (CMS/HCC); Type 2 diabetes mellitus with other specified complication, without long-term current use of insulin (CMS/HCC); Anemia associated with chemotherapy; Chemotherapy-induced thrombocytopenia 03/15/2024 12:00 PM WRINGER OPERATOR - 03/15/2024 11:59 PM WRINGER OPERATOR Hospital Encounter [facility] 2nd Fl [address] [place] [address] Zehra Smith MD Discharge Disposition: Home or Self Care 03/15/2024 Chart Note [facility] Oncology Patient Navigation [address] [place] [address] Alva Varela, RN Nurse Navigation (GI Oncology /) 03/15/2024 Orders Only [facility] On[facility] and Hematology [facility] [address] [place] [address] Beatris Vega, DEMETRA Gross hematuria (Primary Dx) 03/15/2024 External Device Data STL ABSTRACTION Provider, Abstract 03/14/2024 External Device Data STL ABSTRACTION Provider, Abstract 03/13/2024 8:21 AM WRINGER OPERATOR - 03/13/2024 11:59 PM WRINGER OPERATOR Hospital Encounter [facility]fusion Center 2nd Fl [address] [place] [address] Zehra Smith MD Infusion Chair 1, 2nd [facility] Discharge Disposition: Home or Self Care 03/13/2024 External Device Data STL ABSTRACTION Provider, Abstract 03/12/2024 11:22 AM WRINGER OPERATOR - 03/12/2024 11:59 PM WRINGER OPERATOR Hospital Encounter [facility]fusion [facility] 3rd Fl [address] [place] [address] Zehra Smith MD Discharge Disposition: Home or Self Care 03/12/2024 External Device Data STL ABSTRACTION Provider, Abstract 03/11/2024 External Device Data STL ABSTRACTION Provider, Abstract 03/10/2024 10:35 AM WRINGER OPERATOR - 03/10/2024 11:59 PM WRINGER OPERATOR Hospital Encounter [facility] 3rd Fl [address] [place] [address] Zehra Smith MD Discharge Disposition: Home or Self Care 03/10/2024 9:45 AM WRINGER OPERATOR Office Visit [facility] Oncology and Hematology [facility] [address] [place] [address] eZhra Smith MD Pancreatic adenocarcinoma (CMS/HCC) (Primary Dx) 03/10/2024 8:30 AM WRINGER OPERATOR - 03/10/2024 11:59 PM WRINGER OPERATOR Hospital Encounter [facility] 2nd Fl [address] [place] [address] Zehra Smith MD Discharge Disposition: Home or Self Care 03/10/2024 External Device Data STL ABSTRACTION Provider, Abstract 03/09/2024 External Device Data STL ABSTRACTION Provider, Abstract 03/08/2024 External Device Data STL ABSTRACTION Provider, Abstract 03/07/2024 External Device Data STL ABSTRACTION Provider, Abstract 03/06/2024 External Device Data STL ABSTRACTION Provider, Abstract 03/05/2024 External Device Data STL ABSTRACTION Provider, Abstract 03/04/2024 External Device Data STL ABSTRACTION Provider, Abstract 03/03/2024 External Device Data STL ABSTRACTION Provider, Abstract 03/02/2024 External Device Data STL ABSTRACTION Provider, Abstract 03/02/2024 External Device Data STL ABSTRACTION Provider, Abstract 03/01/2024 External Device Data STL ABSTRACTION Provider, Abstract 02/29/2024 External Device Data STL ABSTRACTION Provider, Abstract 02/28/2024 External Device Data STL ABSTRACTION Provider, Abstract 02/27/2024 External Device Data STL ABSTRACTION Provider, Abstract from Last 3 Months Social History Tobacco Use Types Packs/Day Years Used Date Smoking Tobacco: Never Smokeless Tobacco: Never Tobacco Cessation:Counseling Given: Not Answered Alcohol Use Standard Drinks/Week Comments Not Currently 0 (1 standard drink = 0.6 oz pur e alcohol) Feeling Safe Answer Date Recorded Are you in a relationship wi th someone who hurts you emotionally and/or physically? No 05/13/2024 Food Insecurity Answer Date Recorded Social/Environmental Concerns No concerns Transportation Needs Answer Date Record ed Social/Environmental Concerns No concerns Housing Stability Answer Date Recorded Social/Environmental Concerns No concerns Utility Needs Answer Date Recorded Social/Environmental Concerns No concerns Comments No Sex and Gender Information Value Date Recorded Sex Assigned at Not on file Legal Sex Female 8:51 AM CDT Gender Identity Not on file Sexual Orientation Not on file Last Filed Vital Signs Vital Sign Reading Time Taken Comments Blood Pressure 162/70 05/13/2024 12:19 PM CDT Pulse 83 05/13/2024 12:19 PM CDT Temperature 36.3 C (97.3 F) 05/13/2024 11:09 AM CDT Respiratory Rate 18 05/13/2024 12:19 PM CDT Oxygen Saturation 99% 05/13/2024 12:19 PM CDT Inhaled Oxygen Concentration - - Weight 51.1 kg (112 lb 9.6 oz) 05/13/2024 10:09 AM CDT Height 157.5 cm (5' 2 ) 05/13/2024 10:09 AM CDT Body Mass Index 20.59 05/13/2024 10:09 AM CDT Plan of Treatment Upcoming Encounters Date Type Department Care Team (Late st Contact Info) Description 03/18/2025 1:15 PM WRINGER OPERATOR Office Visit [facility] Urology at the [facility] Medicine [address] [place] [address] Marisela Moore MD [address] [facility] [address] [place] [address] Health Maintenance Due Date Last Done Comments DIABETES ANNUAL FOOT EXAM 08/05/1969 DIABETES ANNUAL RETINAL EXAM 08/05/1969 DIABETES MICROALBUMIN ANNUAL SCREEN 08/05/1969 LDL CHOLESTEROL ANNUAL 08/05/1969 FIT-DNA Q 3 years 08/05/1996 FIT/FOBT Q 1 year 08/05/1996 Flex Sig/CT Colonography Q 5 years 08/05/1996 RSV VACCINE (60+ or ) (1 - Risk 60-74 years 1-dose series) 2011 COLORECTAL SCREENING 05/02/2021 05/03/2011 Colorectal Cancer Screening 05/02/2021 COVID-19 Vaccine (3 - Pfizer risk series) 12/03/2023 11/05/2023, 12/03/2022 Medicare Advantage ([place]) Preventative Visit/Annual Wellness Visit 03/03/2024 10/29/2022, 10/23/2021, 07/17/2020 DIABETES HBA1C Q 6 MONTHS 09/23/20242024, 11/15/2023, 11/11/2023 BREAST CANCER SCREENING 10/20/2024 10/21/19, 10/02/2023, 11/25/2022, Additional history exists DTAP/TDAP/TD VACCINES (2 - T d or Tdap) 04/27/2025 04/27/2015 PNEUMOCOCCAL VACCINE 50+ YEARS Completed 10/20/2018 , 10/15/2016 ZOSTER VACCINE Completed 06/14/2020, 01/01, 03/18/2013 OSTEOPOROSIS SCREENING Completed , 08/16/2022, 05/12/2020 INFLUENZA VACCINE Completed 12/18/2023, , 12/06/2019, Additional history exists Medical Devices Implanted Type Area Programming Intern Device Identifier Shelf Expiration Date Model / Serial / Lot Port Powerport Mri 8fr [id number] - [id number] Implanted:Qty : 1 on 12/05/2023 by Kristian Jimenez MD at [facility] Port Right: Chest BARD [employer] [id number] 01/30/2025 [id number] / / [id number] Stent Bili Viabil [id number] - [id number] Implanted:Qty : 1 on 05/13/2024 by Reginald Slater MD at [facility] Stent N/A: Bile Duct [employer] [id number] 02/28/2027 [id number] / [id number] / Procedures Procedure Name Priority Date/Time Associated Diagnosis Comments ERCP REPORT 05/13/2024 11:07 AM CDT [place] ERCP DX COLLECTION SPECIMEN BRUSHING/WASHING 05/13/2024 11:00 AM CDT Biliary obstruction (CMS/HCC) Case Notes emailed prep-jdl XR ERCP BILIARY AND PANCREATIC Routine 05/13/2024 10:58 AM CDT [place] ANES INSERT ENDOTRACHEAL AIRWAY Routine 05/13/2024 10:39 AM CDT MRI ABDOMEN W WO CONTRAST Routine 04/16/2024 10:02 AM WRINGER OPERATOR Malignant neoplasm of pancreas, unspecified (CMS/HCC) COMPREHENSIVE METABOLIC PANEL Stat 03/24/2024 7:25 AM WRINGER OPERATOR Pancreatic adenocarcinoma (CMS/HCC) CBC WITH DIFFERENTIAL Stat 03/24/2024 7:25 AM WRINGER OPERATOR Pancreatic adenocarcinoma (CMS/HCC) POC URINALYSIS DIPSTICK NON AUTOMATED Routine 03/19/2024 1:04 PM WRINGER OPERATOR Hematuria, unspecified type CT CHEST ABDOMEN PELVIS W CONT Routine 03/19/2024 11:22 AM WRINGER OPERATOR Pancreatic adenocarcinoma (CMS/HCC) EXTRA TUBE Stat 03/15/2024 12:19 PM WRINGER OPERATOR DIFFERENTIAL, MANUAL Stat 03/15/2024 12:19 PM WRINGER OPERATOR Gross hematuria COMPREHENSIVE METABOLIC PANEL Stat 03/15/2024 12:19 PM WRINGER OPERATOR Gross hematuria CBC WITH DIFFERENTIAL Stat 03/15/2024 12:19 PM WRINGER OPERATOR Gross hematuria URINALYSIS WITH REFLEX CULTURE Stat 03/15/2024 12:19 PM WRINGER OPERATOR Gross hematuria URINE CULTURE Stat 03/15/2024 12:19 PM WRINGER OPERATOR DIFFERENTIAL, MANUAL Stat 03/10/2024 8:54 AM WRINGER OPERATOR Pancreatic adenocarcinoma (CMS/HCC) COMPREHENSIVE METABOLIC PANEL Stat 03/10/2024 8:54 AM WRINGER OPERATOR Pancreatic adenocarcinoma (CMS/HCC) CBC WITH DIFFERENTIAL Stat 03/10/2024 8:54 AM WRINGER OPERATOR Pancreatic adenocarcinoma (CMS/HCC) HEMOGLOBIN A1C Routine 11/15/2023 4:02 PM CDT from Last 3 Months or Most Recently Relevant to Health Maintenance Results * ERCP REPORT (05/13/2024 11:07 AM CDT) Narrative Procedure Note Reginald Slater MD - 05/13/2024 11:07 AM CDT [facility] Endoscopy Patient Name: Liz Chun Procedure Date: 05/13/2024 Date of : 1950 Attending MD: Reginald Slater MD, Procedure: ERCP Indications: Biliary obstruction secondary to malignant neoplasm. Providers: Reginald Slater MD Referring MD: Zehra Smith MD Medicines: General Anesthesia Complications: No immediate complications. Procedure: Informed consent was obtained for the procedure, including moderate sedation after risks were discussed. Based on the pre-procedure assessment, including review of the patient's medical history, medications, allergies, and review of systems, the patient was deemed to be an appropriate candidate for sedation. A timeout was performed. Continuous ECG monitoring, pulse oximetry, blood pressure monitoring, and direct observation were performed. The Duodenoscope was introduced through the mouth, and advanced to the duodenum and used to inject contrast into the bile duct and ventral pancreatic duct. The ERCP was accomplished without difficulty. The patient tolerated the procedure well. Estimated Blood Loss: Estimated blood loss: none. Findings: The substation designer film was normal. The esophagus was successfully intubated under direct vision. The scope was advanced to a normal major papilla in the descending duodenum without detailed examination of the pharynx, larynx and associated structures, and upper GI tract. The upper GI tract was grossly normal. A 0.035 inch straight standard wire was passed into the Pancreatic duct initially. The wire was able to advance across a perceived stricture based on resistance in advancing the guidewire however advancement to the body region suggesting a prominent duct based on looping of the guidewire. Position was based on fluoroscopic landmarks. A second 0.035 inch wire was then used to cannulate the common bile duct. The downstream bile duct was cannulated. A small amount of contrast was injected after engagement of the papilla which could appreciate the course of the common bile duct which showed a fairly high-grade stricture of approximately 2 to 3 cm in length followed by a markedly dilated upstream biliary ductal system. The guidewire was able to be advanced across the stricture into the proximal biliary ductal system. Catheter advanced over the guidewire. Contrast was used to opacify the more proximal biliary ductal system which showed a dilated left and right hepatic duct and common bile duct with the downstream stricture as the single dominant pathology. A 8 to 9 mm biliary sphincterotomy was performed without bleeding. A 10 mm x 6 cm fully covered self-expanding metallic stent was placed across the distal bile duct stricture with the proximal aspect of the stent just above the level of the stricture. There was brisk drainage of dark somewhat viscous bile post deployment. There was development of a good air cholangiogram consistent with drainage of the biliary ductal system and decompression. There was no bleeding at completion of the procedure. The patient tolerated the procedure well. Fluoroscopic images were personally reviewed and interpreted to guide the procedure. 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 Recommendation: Postprocedure precautions. Follow clinically. Discharge patient to home. Initiate a liquid/low-fat diet for the next 4 to 8 hours. Can advance diet as tolerated. Will consider biliary stent exchange in 6 to 8 months if surgical intervention not pursued. Reginald Slater MD 05/13/2024 11:07:05 AM This report has been signed electronically. Number of Addenda: [address]; [place] [address] Reginald Slater MD GI PROCEDURE ORDERABLES Irina foley Result * XR ERCP BILIARY AND PANCREATIC (05/13/2024 10:58 AM CDT) Anatomical Region Laterality Modality Abdomen Computed Radiogr aphy 05/13/2024 10:5 9 AM CDT Impressions 05/14/2024 10:38 PM CDT IMPRESSION: Intraoperative fluoroscopy. Please refer to the dedicated operative report for further details. DICTATION LOCATION: Location 1 - [facility] 05/14/2024 10:38 PM CDT EXAM: XR ERCP BILIARY AND PANCREATIC DATE: 05/13/2024 10:58 AM HISTORY: Intraoperative FINDINGS: 12 intraoperative fluoroscopic images of right upper abdomen were performed during ERCP and biliary stent placement performed by gastroenterology. A radiologist was not present during the procedure. Fluoroscopic time: 1.6 minutes Reference air Kerma dose: 54 mGy Procedure Note Sukh Tang MD - 05/14/2024 EXAM: XR ERCP BILIARY AND PANCREATIC DATE: 05/13/2024 10:58 AM HISTORY: Intraoperative FINDINGS: 12 intraoperative fluoroscopic images of right upper abdomen were performed during ERCP and biliary stent placement performed by gastroenterology. A radiologist was not present during the procedure. Fluoroscopic time: 1.6 minutes Reference air Kerma dose: 54 mGy IMPRESSION: Intraoperative fluoroscopy. Please refer to the dedicated operative report for further details. DICTATION LOCATION: Location 1 - [facility] Reginald Slater MD DIAGNOSTIC IMAGING ORDERABLE S Final Result * [place] ANES INSERT ENDOTRACHEAL AIRWAY (05/13/2024 10:39 AM CDT) Narrative Sade Muniz AA-C - 05/13/2024 10:39 AM CDT Sade Muniz AA-C 05/13/2024 10:49 AM Airway Date/Time: 05/13/2024 10:39 AM Location: OR Plan: routine intubation Patient Identity Confirmed by: Verbally with patient and armband Airway: not difficult Staffing Performed: LOAN PROCESSOR/CAA Authorized by: Unruly Shearer MD Performed by: Sade Muniz AA-C Indications and Patient Condition: Indications for Airway Management: Anesthesia Sedation Level: general anesthesia Preoxygenated: yes Patient Position: Sniffing Mask Difficulty Assessment: 0 - not attempted Plan to extubate at end of case: Yes Final Airway Details: Final Airway Type: Endotracheal airway ETT Cuffed: Yes Cuff Volume (mL): 5 Technique Used for Successful ETT Placement: Direct laryngoscopy Devices/Methods Used in Placement: Rapid sequence intubations/RSI and intubating stylet Blade Type: curved blade Blade Size: 3 Insertion Site: Oral ETT Size (mm): 6.0 Measured from: Lips ETT to Lips (cm): 21 Tube secured with: Tape Placement Verified by: auscultation, end tidal CO2 and chest rise Cormack-Lehane Classification: Grade I - full view of glottis Number of Attempts at Approach: 1 Additional Procedure Information: atraumatic and dentition unchanged us Unruly Shearer MD PROCEDURE/MINOR SURGICAL ORDERA BLES Final Result * MRI ABDOMEN W WO CONTRAST (04/16/2024 10:02 AM WRINGER OPERATOR) Anatomical Region Laterality Modality Abdomen Magnetic Resonan ce 04/16/2024 10:0 2 AM WRINGER OPERATOR Impressions 04/16/2024 3:17 PM WRINGER OPERATOR IMPRESSION: 1. Pancreatic head mass causing upstream dilation of the main pancreatic duct in the body and tail. It also causes some extrinsic compression on the distal common bile duct, resulting in significant central intrahepatic and proximal extrahepatic biliary dilation. 2. Several small foci of fatty sparing within the liver correspond to foci of hyperenhancement which persists. These are not clearly apparent on prior imaging, so benign (such as flash filling hemangiomas are considered less likely. Concern for atypical metastatic lesions. 3. Wedge-shaped fatty sparing in segment eight is concerning for perfusion alterations in the liver, which could indicate a lesion likely near the apex of the wedge, though no such lesion is clearly identified. Attention on future imaging is recommended. 4. Background marked hepatic steatosis. DICTATION LOCATION: Location 1 [facility] 04/16/2024 3:17 PM WRINGER OPERATOR EXAMINATION: Abdominal MRI without and with contrast HISTORY: Malignant neoplasm of the pancreas TECHNIQUE: Multiplanar, multisequence images were obtained through the abdomen before and after the uneventful administration of intravenous gadolinium contrast (GADOTERIDOL 279.3 MG/ML INTRAVENOUS SOLUTION Given:9 mL) according to routine protocol. COMPARISON: MRCP 11/16/2023. Multiple CT examinations, most recent 03/19/2024 FINDINGS: Liver: Parenchyma: Normal size and morphology. No evidence of fibrosis/cirrhosis. Marked diffuse hepatic steatosis. There is a wedge-shaped region of fatty sparing in segment eight. This is new from November 2023, and raises concern for vascular/perfusion changes related to a lesion, though no discrete lesion is seen (this would be expected to be near the apex of the wedge). There is mild sparing around the gallbladder fossa in the yael hepatis. Focal lesions: There is a small focus of fatty sparing measuring about 6 mm in the left lateral section, near the falciform ligament. This is arterially hyperenhancing, and hyperenhancement persists throughout the dynamic images. There is a second small 5 mm focus of fatty sparing in segment seven with similar characteristics. Vasculature: Conventional arterial anatomy. The portal veins are patent and normally enhancing. The hepatic veins enhance normally. Biliary tree: Moderate central intrahepatic and proximal extrahepatic biliary dilation. Common bile duct measures up to 1.4 cm in diameter. Focal narrowing is evident distally, associated with the pancreatic head mass. Gallbladder: Distended but not frankly hydropic, with some layering sludge in the fundus. No stones. Spleen: Normal size and contour. Benign cyst superiorly and anteriorly. Pancreas: Abnormal appearance of the pancreas is again evident with duct dilation in the tail and body, upstream from a pancreatic head mass. The mass itself is difficult to measure accurately. There is a cystic/necrotic component anteriorly and inferiorly. There is associated infiltrative tissue extending to abut the portal vein, as well as the adjacent celiac and superior mesenteric arteries. Vascular involvement is better assessed on CT. Adrenal glands: Normal Kidneys: Normal and symmetric size, contour, and enhancement. Simple cysts bilaterally. No hydronephrosis. Additional findings: Trace edema in the upper abdomen near the pancreas. No overt ascites. No frankly enlarged lymph nodes are seen. No suspicious osseous lesions in the [id number]. Suspected vertebral hemangiomas and diffuse osteopenia. Procedure Note Khai Smyth MD - 04/16/2024 EXAMINATION: Abdominal MRI without and with contrast HISTORY: Malignant neoplasm of the pancreas TECHNIQUE: Multiplanar, multisequence images were obtained through the abdomen before and after the uneventful administration of intravenous gadolinium contrast (GADOTERIDOL 279.3 MG/ML INTRAVENOUS SOLUTION Given:9 mL) according to routine protocol. COMPARISON: MRCP 11/16/2023. Multiple CT examinations, most recent 03/19/2024 FINDINGS: Liver: Parenchyma: Normal size and morphology. No evidence of fibrosis/cirrhosis. Marked diffuse hepatic steatosis. There is a wedge-shaped region of fatty sparing in segment eight. This is new from November 2023, and raises concern for vascular/perfusion changes related to a lesion, though no discrete lesion is seen (this would be expected to be near the apex of the wedge). There is mild sparing around the gallbladder fossa in the yael hepatis. Focal lesions: There is a small focus of fatty sparing measuring about 6 mm in the left lateral section, near the falciform ligament. This is arterially hyperenhancing, and hyperenhancement persists throughout the dynamic images. There is a second small 5 mm focus of fatty sparing in segment seven with similar characteristics. Vasculature: Conventional arterial anatomy. The portal veins are patent and normally enhancing. The hepatic veins enhance normally. Biliary tree: Moderate central intrahepatic and proximal extrahepatic biliary dilation. Common bile duct measures up to 1.4 cm in diameter. Focal narrowing is evident distally, associated with the pancreatic head mass. Gallbladder: Distended but not frankly hydropic, with some layering sludge in the fundus. No stones. Spleen: Normal size and contour. Benign cyst superiorly and anteriorly. Pancreas: Abnormal appearance of the pancreas is again evident with duct dilation in the tail and body, upstream from a pancreatic head mass. The mass itself is difficult to measure accurately. There is a cystic/necrotic component anteriorly and inferiorly. There is associated infiltrative tissue extending to abut the portal vein, as well as the adjacent celiac and superior mesenteric arteries. Vascular involvement is better assessed on CT. Adrenal glands: Normal Kidneys: Normal and symmetric size, contour, and enhancement. Simple cysts bilaterally. No hydronephrosis. Additional findings: Trace edema in the upper abdomen near the pancreas. No overt ascites. No frankly enlarged lymph nodes are seen. No suspicious osseous lesions in the [id number]. Suspected vertebral hemangiomas and diffuse osteopenia. IMPRESSION: 1. Pancreatic head mass causing upstream dilation of the main pancreatic duct in the body and tail. It also causes some extrinsic compression on the distal common bile duct, resulting in significant central intrahepatic and proximal extrahepatic biliary dilation. 2. Several small foci of fatty sparing within the liver correspond to foci of hyperenhancement which persists. These are not clearly apparent on prior imaging, so benign (such as flash filling hemangiomas are considered less likely. Concern for atypical metastatic lesions. 3. Wedge-shaped fatty sparing in segment eight is concerning for perfusion alterations in the liver, which could indicate a lesion likely near the apex of the wedge, though no such lesion is clearly identified. Attention on future imaging is recommended. 4. Background marked hepatic steatosis. DICTATION LOCATION: Location 1 - [facility] us Tori Figueroa MD MR ORDERABLES Final Result * (ABNORMAL) CBC WITH DIFFERENTIAL (03/24/2024 7:25 AM WRINGER OPERATOR) Only the most recent of3 resultswithin the time period is included. WBC 6.5 4.0 - 9.8 K/uL 03/24/2024 8:24 AM [employer] [facility] - [facility] RBC 3.46(L) 3.90 - 4.90 M/uL 03/24/2024 8:24 AM WRINGER OPERATOR [employer] [facility] - [facility] HEMOGLOBIN 11.3(L) 11.8 - 14.8 g/dL 03/24/2024 8:24 AM WRINGER OPERATOR [employer] [facility] - [facility] HEMATOCRIT 34.7(L) 35.5 - 44.0 % 03/24/2024 8:24 AM WRINGER OPERATOR [employer] [facility] - [facility] MCV 100.3(H) 82.0 - 99.0 fL 03/24/2024 8:24 AM WRINGER OPERATOR [employer] [facility] - [facility] MCH 32.7(H) 27.2 - 32.6 pg 03/24/2024 8:24 AM WRINGER OPERATOR [employer] [facility] - [facility] MCHC 32.6 31.5 - 35.5 g/dL 03/24/2024 8:24 AM [employer] [facility] - [facility] RDW 16.2(H) 11.5 - 14.5 % 03/24/2024 8:24 AM [employer] [facility]ORY SERVICES [facility] RDW-STDEV 59.8(H) 37.1 - 48.7 fL 03/24/2024 8:24 AM WRINGER OPERATOR [employer] [facility] PLATELETS 77(L) 140 - 350 K/uL 03/24/2024 8:24 AM WRINGER OPERATOR [employer] [facility] Comment:Platelets verified b y smear review. MPV 10.6 9.3 - 12.4 fL 03/24/2024 8:24 AM WRINGER OPERATOR [employer] [facility] NEUTROPHILS 73 % 03/24/2024 8:24 AM WRINGER OPERATOR [employer] [facility] - [facility] LYMPHOCYTES 16 % 03/24/2024 8:24 AM WRINGER OPERATOR [employer] [facility] MONOCYTES 9 % 03/24/2024 8:24 AM [facility] EOSINOPHILS 1 % 03/24/2024 8:24 AM [facility] BASOPHILS 0 % 03/24/2024 8:24 AM [facility] IMMATURE GRANULOCYTES 1 % 03/24/2024 8:24 AM [facility] Comment:IG (Immature Granulo cyte) count includes Metamyelocytes, Myelocytes, and Promyelocytes NEUTROPHIL ABSOLUTE 4.75 1.90 - 7.00 K/uL 03/24/2024 8:24 AM [facility] LYMPHOCYTE ABSOLUTE 1.03 0.70 - 4.50 K/uL 03/24/2024 8:24 AM [facility] MONOCYTE ABSOLUTE 0.55 0.10 - 1.30 K/uL 03/24/2024 8:24 AM [facility] EOSINOPHIL ABSOLUTE 0.06 0.00 - 0.70 K/uL 03/24/2024 8:24 AM [facility] BASOPHILS ABSOLUTE 0.02 0.00 - 0.20 K/uL 03/24/2024 8:24 AM [facility] IMMATURE GRANULOCYTES ABSOLUTE 0.07(H) 0.00 - 0.03 K/uL 03/24/2024 8:24 AM [facility] Blood Collection / Unknown 03/24/2024 7:25 AM WRINGER OPERATOR 03/24/2024 7:46 AM [facility] Zehra Smith MD HEMATOLOGY ORDERABLES Final R esult [id number] [address] [place], [place] [address] * (ABNORMAL) COMPREHENSIVE METABOLIC PANEL (03/24/2024 7:25 AM WRINGER OPERATOR) Only the most recent of3 resultswithin the time period is included. SODIUM 137 136 - 145 mmol/L 03/24/2024 8:48 AM [facility] POTASSIUM 3.4(L) 3.5 - 5.0 mmol/L 03/24/2024 8:48 AM [facility] [facility] CHLORIDE 103 98 - 107 mmol/L 03/24/2024 8:48 AM [facility] [employer] [facility] CO2 20(L) 22 - 29 mmol/L 03/24/2024 8:48 AM [facility] CALCIUM 9.0 8.6 - 10.2 mg/dL 03/24/2024 8:48 AM [facility] [employer] [facility]ORAT[facility] BUN 9 8 - 23 mg/dL 03/24/2024 8:48 AM [facility] [employer] [facility] CREATININE 0.65 0.51 - 0.95 mg/dL 03/24/2024 8:48 AM [facility] [employer] [facility] Comment:The GFR result is no t clinically significant on patients <18 or >70 years of age. GLUCOSE 170(H) 74 - 99 mg/dL 03/24/2024 8:48 AM [facility] [employer] [facility] TOTAL PROTEIN 6.3(L) 6.7 - 8.6 g/dL 03/24/2024 8:48 AM [facility] [employer] [facility] ALBUMIN 3.7 3.5 - 5.2 g/dL 03/24/2024 8:48 AM [facility] [employer] [facility] BILIRUBIN TOTAL 0.2 0.2 - 1.1 mg/dL 03/24/2024 8:48 AM [facility] ALKALINE PHOSPHATASE 203(H) 35 - 104 U/L 03/24/2024 8:48 AM [facility] [employer] [facility] AST 36(H) <33 U/L 03/24/2024 8:48 AM [facility] [employer] [facility] ALT 27 <34 U/L 03/24/2024 8:48 AM WRINGER OPERATOR [employer] LABORAT[facility] GFR >60 mL/min/1.7 3 sq meter 03/24/2024 8:48 AM [facility] [employer] [facility] Comment:eGFR calculated with 2020 CKD-EPI equation. Vegetarian diet, extremely high or low muscle mass, and may affect results. Cystatin C with Glomerular Filtration Rate is a suitable alternative for these patients. ANION GAP 14 8 - 16 mmol/L 03/24/2024 8:48 AM WRINGER OPERATOR [facility] Blood Collection / Unknown 03/24/2024 7:25 AM WRINGER OPERATOR 03/24/2024 7:59 AM WRINGER OPERATOR Narrative [facility] - 03/24/2024 8:48 AM WRINGER OPERATOR Samples containing indocyanine green cause interferences on Total and/or Direct Bilirubin and must not be measured. us Zehra Smith MD CHEMISTRY ORDERABLES Final Re sult [facility] CLIA# [id number] [address] [place] [address] * (ABNORMAL) POC URINALYSIS DIPSTICK NON AUTOMATED (03/19/2024 1:04 PM WRINGER OPERATOR) COLOR UA POC Yellow Pale to Dark Yellow [facility] CLARITY UA POC Clear Clear, Other [facility] GLUCOSE UA POC Negative Negative, Normal [facility] BILIRUBIN UA POC Negative Negative [facility] KETONES UA POC Negative Negative [facility] SPECIFIC GRAVITY UA POC 1.010 1.000 - 1.030 [facility] BLOOD UA POC Trace(A) Negative [facility] PH UA POC 6.0 5.0 - 8.0 [facility] PROTEIN UA POC Negative Negative [facility] UROBILINOGEN UA POC Normal <2.0 mg/dL [facility] NITRITE UA POC Negative Negative [facility] LEUKOCYTE ESTERASE UA POC Negative Negative [facility] KIT LOT NUMBER POC [address] [facility] KIT EXP DATE POC 0 [facility] Urine 03/19/2024 1:04 PM WRINGER OPERATOR us Marisela Moore MD POINT OF CARE TESTING Final Resu lt [facility] CLIA# [id number] [address] [place] [address] * CT CHEST ABDOMEN PELVIS W CONT (03/19/2024 11:22 AM WRINGER OPERATOR) Anatomical Region Laterality Modality Chest Computed Tomogra phy 03/19/2024 11:1 4 AM WRINGER OPERATOR Impressions 03/22/2024 9:39 AM WRINGER OPERATOR IMPRESSION: 1. No signs of metastatic disease in the chest. 2. Slightly increased size of a pancreatic head mass and increased fat stranding surrounding the adjacent vasculature. DICTATION LOCATION: Location 4 Narrative 03/22/2024 9:39 AM WRINGER OPERATOR EXAMINATION: CT CHEST ABDOMEN PELVIS W CONT HISTORY: pancreatic cancer. Pancreatic adenocarcinoma TECHNIQUE: Computed tomography of the chest, abdomen, and pelvis was performed following the uneventful administration of 80 mL Isovue-300 intravenous contrast according to standard protocol. The examination was performed with the adjustment of mA according to the patient size and/or the use of Iterative Reconstruction Technique. FINDINGS: Comparison is made with a study from December 01, 2023. CHEST: LUNGS/AIRWAYS/PLEURA: Previously described pulmonary nodules are no longer evident and no new or enlarging pulmonary nodules are identified. A bulla in the right midlung is unchanged. No effusion or pneumothorax. HEART/VESSELS: Normal heart size without pericardial effusion. Atherosclerotic calcification of the thoracic aorta and its branch vessels. Coronary artery atherosclerotic calcifications are present. A right chest wall Port-A-Cath terminates in the superior cavoatrial junction. MEDIASTINUM AND KIKO: Within normal limits. CHEST WALL AND LOWER NECK: Within normal limits. BONES: Within normal limits. ABDOMEN AND PELVIS: LIVER: Within normal limits. GALLBLADDER: Within normal limits. BILE DUCTS: There is stable intra and extrahepatic biliary ductal dilatation. PANCREAS: There is stable pancreatic ductal dilatation. A hypodense mass in the pancreatic head measuring 2.7 cm TV by 2.5 cm CC by 1.5 cm AP previously measured 2.2 cm TV by 2.6 cm CC by 1.5 cm AP. There is increased fat stranding surrounding the adjacent superior mesenteric and celiac arteries. SPLEEN: Stable splenic cyst. ADRENALS: Within normal limits. KIDNEYS/URETERS: Within normal limits. BLADDER: Nondistended. REPRODUCTIVE ORGANS: Within normal limits. BOWEL: No bowel obstruction or wall thickening. PERITONEUM/RETROPERITONEUM: Small volume free fluid in the pelvis no free air or significant lymphadenopathy identified. VESSELS: Atherosclerotic calcification of the abdominal aorta and its branch vessels. ABDOMINAL WALL: Within normal limits. BONES: Within normal limits. Procedure Note Iliana Shukla MD - 03/22/2024 EXAMINATION: CT CHEST ABDOMEN PELVIS W CONT HISTORY: pancreatic cancer. Pancreatic adenocarcinoma TECHNIQUE: Computed tomography of the chest, abdomen, and pelvis was performed following the uneventful administration of 80 mL Isovue-300 intravenous contrast according to standard protocol. The examination was performed with the adjustment of mA according to the patient size and/or the use of Iterative Reconstruction Technique. FINDINGS: Comparison is made with a study from December 01, 2023. CHEST: LUNGS/AIRWAYS/PLEURA: Previously described pulmonary nodules are no longer evident and no new or enlarging pulmonary nodules are identified. A bulla in the right midlung is unchanged. No effusion or pneumothorax. HEART/VESSELS: Normal heart size without pericardial effusion. Atherosclerotic calcification of the thoracic aorta and its branch vessels. Coronary artery atherosclerotic calcifications are present. A right chest wall Port-A-Cath terminates in the superior cavoatrial junction. MEDIASTINUM AND KIKO: Within normal limits. CHEST WALL AND LOWER NECK: Within normal limits. BONES: Within normal limits. ABDOMEN AND PELVIS: LIVER: Within normal limits. GALLBLADDER: Within normal limits. BILE DUCTS: There is stable intra and extrahepatic biliary ductal dilatation. PANCREAS: There is stable pancreatic ductal dilatation. A hypodense mass in the pancreatic head measuring 2.7 cm TV by 2.5 cm CC by 1.5 cm AP previously measured 2.2 cm TV by 2.6 cm CC by 1.5 cm AP. There is increased fat stranding surrounding the adjacent superior mesenteric and celiac arteries. SPLEEN: Stable splenic cyst. ADRENALS: Within normal limits. KIDNEYS/URETERS: Within normal limits. BLADDER: Nondistended. REPRODUCTIVE ORGANS: Within normal limits. BOWEL: No bowel obstruction or wall thickening. PERITONEUM/RETROPERITONEUM: Small volume free fluid in the pelvis no free air or significant lymphadenopathy identified. VESSELS: Atherosclerotic calcification of the abdominal aorta and its branch vessels. ABDOMINAL WALL: Within normal limits. BONES: Within normal limits. IMPRESSION: 1. No signs of metastatic disease in the chest. 2. Slightly increased size of a pancreatic head mass and increased fat stranding surrounding the adjacent vasculature. DICTATION LOCATION: Location [address] ORDERABLES Final Result * EXTRA TUBE (03/15/2024 12:19 PM WRINGER OPERATOR) EXTRA TUBE RECEIVED [facility] Comment: An extra tube was received without a test specified. We will hold this specimen in our cold storage in the event additional testing is requested. Please contact your local client support consultant for further assistance. SPECIMEN TYPE URINE CUP [facility] Comment: Test Performed at: [place] [address] [place] [id number] Barry Rodriguez 03/15/2024 12:1 9 PM WRINGER OPERATOR 03/15/2024 12:49 PM WRINGER OPERATOR Beatris MCCRARY CHEMISTRY ORDERABLES Final Re sult [facility] [phone] [place] [address] [place] [id number] * (ABNORMAL) MANUAL DIFFERENTIAL (03/15/2024 12:19 PM WRINGER OPERATOR) Only the most recent of2 resultswithin the time period is included. Pathologist [facility] SEGMENTED NEUTROPHILS 86 % 03/15/2024 1:21 PM WRINGER OPERATOR [employer] [facility]ORAT[facility] LYMPHOCYTES RELATIVE 11(L) 43 - 53 % 03/15/2024 1:21 PM WRINGER OPERATOR [employer] LABORAT[facility] MONOCYTES RELATIVE 2 % 03/15/2024 1:21 PM WRINGER OPERATOR [employer] [facility] METAMYELOCYTES RELATIVE 1(H) <=0 % 03/15/2024 1:21 PM WRINGER OPERATOR [employer] [facility] NEUTROPHILS ABSOLUTE COUNT 11.44(H) 1.90 - 7.00 K/uL 03/15/2024 1:21 PM WRINGER OPERATOR [employer] [facility] LYMPHOCYTES ABSOLUTE 1.46 0.70 - 4.50 K/uL 03/15/2024 1:21 PM WRINGER OPERATOR [employer] [facility] MONOCYTES ABSOLUTE 0.27 0.10 - 1.30 K/uL 03/15/2024 1:21 PM WRINGER OPERATOR [employer] LABORAT[facility] TOTAL CELLS COUNTED IN DIFF 100 03/15/2024 1:21 PM WRINGER OPERATOR [facility] PLATELET EST. Consistent w Count 03/15/2024 1:21 PM WRINGER OPERATOR [facility] ANISOCYTOSIS 1+ /hpf 03/15/2024 1:21 PM WRINGER OPERATOR [facility] POIKILOCYTES 1+ /hpf 03/15/2024 1:21 PM WRINGER OPERATOR [facility] OVALOCYTES 1+ /hpf 03/15/2024 1:21 PM WRINGER OPERATOR [facility] Blood Collection / Unknown 03/15/2024 12:19 PM WRINGER OPERATOR 03/15/2024 12:37 PM WRINGER OPERATOR Beatris Vega ANP HEMATOLOGY ORDERABLES COM Fin al Result [facility] CLIA# [id number] [address] [place] [address] * (ABNORMAL) URINALYSIS WITH REFLEX CULTURE (03/15/2024 12:19 PM WRINGER OPERATOR) COLOR UA ORANGE(A) YELLOW [facility] CLARITY UA CLOUDY(A) CLEAR [facility] SPECIFIC GRAVITY UA 1.041(H) 1.001 - 1.035 [facility] PH UA 6.0 5.0 - 8.0 [facility] GLUCOSE UA 2+(A) NEGATIVE [facility] BILIRUBIN UA NEGATIVE NEGATIVE [facility] KETONES UA TRACE(A) NEGATIVE [facility] BLOOD UA 3+(A) NEGATIVE [facility] PROTEIN UA 2+(A) NEGATIVE [facility] NITRITE UA NEGATIVE NEGATIVE [facility] LEUKOCYTE ESTERASE UA 1+(A) NEGATIVE [facility] WBC UA 10-20(A) < OR = 5 /HPF [facility] [place] RBC UA PACKED(A) < OR = 2 /HPF [facility] EPITHELIAL CELLS, URINE 0-5 < OR = 5 /HPF [facility] [place] BACTERIA UA NONE SEEN NONE SEEN /HPF [facility] [place] HYALINE CAST NONE SEEN NONE SEEN /LPF [facility] [place] URINE NOTE [facility] [place] Comment: This urine was analyzed for the presence of WBC, RBC, bacteria, casts, and other formed elements. Only those elements seen were reported. URINE CULTURE [facility] Comment: CULTURE INDICATED - RESULTS TO FOLLOW Test Performed at: [place] [address] [address] [phone] GwenRicki Rodriguez Urine URINE SPECIMEN OBTAINED BY CLEAN CATCH PROCEDURE / Unknown 03/15/2024 12:19 PM WRINGER OPERATOR 03/15/2024 12:49 PM WRINGER OPERATOR Beatris Vega [facility] URINE ORDERABLES Final Result [facility] [phone] [place] [address] [address] [phone] * (ABNORMAL) URINE CULTURE (03/15/2024 12:19 PM WRINGER OPERATOR) URINE CULTURE SEE NOTE(A) [facility] Comment: CULTURE, URINE, ROUTINE Micro Number: [id number] Test Status: Final Specimen Source: Urine Specimen Quality: Adequate Result: 10,000-49,000 CFU/mL of Non-uropathogenic Gram positive organism May represent colonizers from external and internal genitalia. No further testing (including susceptibility) will be performed. 50,000-100,000 CFU/mL of Escherichia coli E.coli INT NORBERTO [...] cefdinir, cefpodoxime, cefprozil, cefuroxime, cephalexin and loracarbef. Test Performed at: [facility] [place] [address] [place] [id number] Barry Rodriguez 03/15/2024 12:1 9 PM WRINGER OPERATOR 03/15/2024 12:49 PM WRINGER OPERATOR Beatris MCCRARY MICROBIOLOGY - GENERAL ORDERA BLES Final Result [facility] [phone] [facility] [place] [address] [place] [address] * (ABNORMAL) HEMOGLOBIN A1C (11/15/2023 4:02 PM CDT) HEMOGLOBIN A1C 7.9(H) <5.7 % 11/15/2023 4:59 PM CDT [facility] EST. AVG GLUCOSE, A1C 180 mg/dL 11/15/2023 4:59 PM CDT [facility] Blood Venipuncture / Unknown 11/15/2023 4:02 PM CDT 11/15/2023 4:32 PM CDT Narrative [facility] - 11/15/2023 4:59 PM CDT HGB A1C INTERPRETATION NORMAL: <5.7% PRE-DIABETES: 5.7 - 6.4% DIABETES: 6.5% OR GREATER Jay Cabrera MD CHEMISTRY ORDERABLES Final Res ult [facility] CLIA# [id number] from Last 3 Months or Most Recently Relevant to Health Maintenance Insurance Member Subscriber Plan / Payer (Ef fective for All Dates) Name:Liz Chun Relation to Subscriber:Self Name:Liz Chun Payer ID:Not on file Group ID:[id number] Type:RX Medicare Part D Address: [address] RX [employer] PL[employer] (INTERNAL) [facility] [employer] RX MEDIMPACT Member Subscriber Plan / Payer (Ef fective 2016-Present) Name:Liz Chun Relation to Subscriber:Self Name:Liz Chun Payer ID:Not on file Group ID:[id number] Type:RX Medicare Part D Address: [address] Advance Directives For more information, please contact: [phone] * Full Code (Latest Code Status on File) Date Activated Date Inactivated Comments 05/13/2024 10:13 AM 05/13/2024 2:48 PM * Full Code Date Activated Date Inactivated Comments 11/15/2023 12:03 PM 11/17/2023 5:14 PM
--- OUTSIDE RECORDS SUMMARY | 2024-05-27 11:18 | XMS_ITS | Encounter Summary ---
Author Organization [facility] Care Team Providers Care Elementary Art Teacher Name Role Phone Jyoti Edge Primary Care Provider [phone]- [phone] Encounter Details Date Type Department Care Team (Latest Contact Info) Description 05/08/2015 Orders Only [facility] CLINCONV Provider, MD Arely [address] [place] [address] Social History Tobacco Use Types Packs/Day Years Used Date Smoking Tobacco: Never Assessed Comments Unknown Sex and Gender Information Value Date Recorded Sex Assigned at Not on file Legal Sex Female 5:48 PM ASSOCIATE PUBLISHER Gender Identity Not on file Sexual Orientation Not on file documented as of this encounter Plan of Treatment Not on file documented as of this encounter Procedures Procedure Name Priority Date/Time Associated Diagnosis Comments SCAN - LABS 05/08/2015 12:00 AM ASSOCIATE PUBLISHER documented in this encounter Results * SCAN - LABS (05/08/2015 12:00 AM ASSOCIATE PUBLISHER) Narrative 05/08/2015 12:00 AM ASSOCIATE PUBLISHER Ordered by an unspecified provider. us Historical Provider Final Res ult documented in this encounter Visit Diagnoses Not on filedocumented in this encounter Care Teams Elementary Art Teacher Relationship Specialty Start Date End Date Jyoti Edge PA [address] [place], [place] [phone] PCP - General Internal Medicine 06/17/18 documented as of this encounter
--- OUTSIDE RECORDS SUMMARY | 2024-05-27 11:18 | XMS_ITS | Encounter Summary ---
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 Slater completed, faxed and scanned to pt's chart. #[id number] * Telephone Encounter - Trina Patel - 05/11/2024 12:30 PM CDT Referral Provider Name: Reginald Slater M.D. Specialty: Gastroenterology Address: [id number], Zip: [place] [address] Fax: [phone] Diagnosis Code/Symptom/Reason Patient is being seen: K83.1 Date of Appointment: 05/13/24 NPI#: [id number] Tax ID#: [id number] Is insurance in chart up to date? [facility] Additional Comments: Placing high priority as patient is scheduled within 3 business days. Does message need to be routed? Yes-Action Needed documented in this encounter Plan of Treatment Not on file documented as of this encounter Visit Diagnoses Not on filedocumented in this encounter Care Teams Geological E Logger Relationship Specialty Start Date End Date Jyoti Edge PA [address] [facility] [address] [place] [address] PCP - General Internal Medicine 06/17/18 documented as of this encounter
--- OUTSIDE RECORDS SUMMARY | 2024-05-27 11:18 | XMS_ITS | Encounter Summary ---
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
--- OUTSIDE RECORDS SUMMARY | 2024-05-27 11:18 | XMS_ITS | Clinical Summary ---
Author Organization [facility] [address] [facility] Address [address] [place] [address] Care Team Providers Care Service Coordinator Name Role Phone Jyoti Edge Primary Care Provider [phone] Allergies Active Allergy Reactions Criticality Noted Date Comments Penicillin V Potassium Unknown 06/18/2018 ? as child Medications multivitamin capsule Rx: Multivitamins Capsule Active cholecalciferol (VITAMIN D-3) 1,000 unit capsule 1 capsule (1,000 Units total) daily Active ascorbic acid, vitamin C, 500 mg capsule 500 mg Active L.acidophilus/B.bi fidvinny,longum (PROBIOTIC COLON SUPPORT ORAL) Rx: Probiotic Colon [...] 04/18/2024 Assessment & Plan (04/18/2024 4:04 PM INVESTIGATIVE SHOPPER): Check urine and culture today Gross hematuria 04/18/2024 Assessment & Plan (04/18/2024 4:01 PM INVESTIGATIVE SHOPPER): Patient was started on Bactrim. Has not completely it it yet it looks as though it is sensitive. Had a cystoscope by [facility] which was essentially normal. Recommend to [...] 12/14/2023 Assessment & Plan (04/18/2024 4:01 PM INVESTIGATIVE SHOPPER): Continue Remeron 7.5 for depression as well as helping with appetite Assessment & Plan (04/04/2024 8:39 PM INVESTIGATIVE SHOPPER): Patient's appetite is down and mood is [...] 12/14/2023 Assessment & Plan (04/04/2024 8:39 PM INVESTIGATIVE SHOPPER): Patient's appetite is down and mood is [...] pancreas Assessment & Plan (04/18/2024 4:02 PM INVESTIGATIVE SHOPPER): Continue per [facility] for pancreatic cancer management. She is awaiting lab results to determine next step in her treatment plan Assessment & Plan (04/04/2024 8:36 PM INVESTIGATIVE SHOPPER): Newer diagnosis of pancreatic cancer. Continue to follow with [facility] as they are managing her currently. Assessment & Plan (12/14/2023 12:16 AM CDT): New diagnosis of pancreatic cancer Continue per the [facility] group 0 coordinating her care. Will await recommendations Controlled type 2 diabetes maya rain without complication, without long-term current use of insulin 12/14/2023 Assessment & Plan (04/18/2024 4:03 PM INVESTIGATIVE SHOPPER): A1c in the office today was 6.0. This is without any medication. I discussed medication with patient but currently with all of the other treatment she is undergoing I recommend continuing diet management. Will continue to monitor closely and if she has random sugars at home that are running over 300 she is to call. Assessment & Plan (04/04/2024 8:37 PM INVESTIGATIVE SHOPPER): Stressed importance of continued A1c control to minimize the longterm effects of diabetes. 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 Bring accuchecks to office [...] 10/14/2023 Assessment & Plan (04/18/2024 4:03 PM INVESTIGATIVE SHOPPER): Patient continues with weight loss. She has known pancreatic cancer. Will see if the Remeron begins to perk her appetite. Encouraged increased protein and overall calories. Assessment & Plan (03/26/2024 9:14 AM INVESTIGATIVE SHOPPER): Weight/BMI is in healthy range. Continue healthy [...] 10/20/2018 Assessment & Plan (05/03/2022 1:32 PM INVESTIGATIVE SHOPPER): Check DEXA Assessment & Plan (01/17/2020 12:01 PM INVESTIGATIVE SHOPPER): Check DXA Assessment & Plan (10/20/2018 10:18 PM CDT): Check DXA Vitamin D deficiency 06/17/2018 Assessment & Plan (12/14/2023 12:16 AM CDT): Supplement Assessment & Plan (05/03/2023 11:12 PM INVESTIGATIVE SHOPPER): Supplement vitamin-D Assessment & Plan (10/30/2022 8:40 AM CDT): Supplement Assessment & Plan (05/03/2022 1:31 PM INVESTIGATIVE SHOPPER): Supplement Assessment & Plan (11/05/2021 9:16 PM CDT): Supplement Assessment & Plan (04/27/2021 9:33 AM INVESTIGATIVE SHOPPER): Continue supplementation Assessment & Plan (07/17/2020 5:08 PM CDT): supplement Assessment & Plan (01/17/2020 9:32 AM INVESTIGATIVE SHOPPER): supplement Assessment & Plan (10/20/2018 10:16 PM CDT): Supplement Gastroesophageal reflux disease without esophagi tis 06/17/2018 Assessment & Plan (12/14/2023 12:16 AM CDT): Continue pantoprazole p.r.n. Assessment & Plan (08/24/2023 6:23 PM CDT): Continue PPI Assessment & Plan (05/03/2023 11:12 PM INVESTIGATIVE SHOPPER): Continue pantoprazole. Could try doubling up if [...] GI. Assessment & Plan (05/03/2022 1:31 PM INVESTIGATIVE SHOPPER): Continue PPI p.r.n.. Has breakthrough symptoms if she misses a day of dosing. Assessment & Plan (11/05/2021 9:16 PM CDT): Continue PPI patient try to taper and still has breakthrough symptoms Assessment & Plan (04/27/2021 9:33 AM INVESTIGATIVE SHOPPER): Continue pantoprazole. Try to taper dosing had breakthrough symptoms so will continue with daily dosing. Assessment & Plan (12/18/2020 9:14 AM CDT): Continue Protonix. Assessment & Plan (07/17/2020 5:09 PM CDT): Continue PPI Assessment & Plan (01/17/2020 9:31 AM INVESTIGATIVE SHOPPER): Stable. Using protonix 40mg bid. Recommend trying [...] hyperlipidemia Assessment & Plan (04/18/2024 4:01 PM INVESTIGATIVE SHOPPER): Patient is past due for labs. 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 Bring accuchecks to office [...] of continued A1c control to minimize the longterm effects of diabetes. 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 Bring accuchecks to office [...] Discussed with patient at length diabetes, pathogenesis, intermodal truck driver sequela, end organ damage, diet/exercise/weight loss, and [...] feet on a regular basis to avoid longterm problems. Offered referral to dress fitter. Decided together to start Farxiga 10mg one daily. Reviewed risks benefits alternatives side effects and proper use. Recheck CMP in 4-6 weeks. Recheck A1c in 3-4 months. Assessment & Plan (05/03/2023 11:13 PM INVESTIGATIVE SHOPPER): Encouraged patient to follow low fat/low chol [...] Crestor Assessment & Plan (05/03/2022 1:31 PM INVESTIGATIVE SHOPPER): Encouraged patient to follow low fat/low chol [...] Crestor Assessment & Plan (04/27/2021 9:33 AM INVESTIGATIVE SHOPPER): Encouraged patient to follow fat/low chol diet like the Mediterranean diet. Increase good fats in the diet. Increase exercise. Monitor labs as needed. Continue Crestor Assessment & Plan (07/17/2020 7:17 AM CDT): Encouraged patient to follow fat/low chol diet like the Mediterranean diet. Increase good fats in the diet. Increase exercise. Monitor labs as needed. Continue crestor Assessment & Plan (01/17/2020 12:01 PM INVESTIGATIVE SHOPPER): Encouraged patient to follow fat/low chol diet like the Mediterranean diet. Increase good fats in the diet. Increase exercise. Monitor labs as needed. Assessment & Plan (10/20/2018 10:16 PM CDT): Encouraged patient to continue low fat/low chol diet. Continue exercise. Increase good fats in the diet. Monitor labs as needed. Osteopenia of spine 06/17/2018 Assessment & Plan (05/03/2023 11:13 PM INVESTIGATIVE SHOPPER): Continue monitoring DEXA. Will plan to recheck [...] years Assessment & Plan (05/03/2022 1:32 PM INVESTIGATIVE SHOPPER): Continue calcium vitamin-D and exercise. Continue Evista continue to monitor DEXA Assessment & Plan (04/27/2021 9:33 AM INVESTIGATIVE SHOPPER): Tolerating Evista. Continue calcium vitamin-D and exercise. Next bone density will be due in May of 2022 Assessment & Plan (12/18/2020 9:14 AM CDT): Tolerating in [place] without problems. Thinks she may have a [...] blood clots. She is most interested in [place]. She is to start 1 tablet daily [...] 05/03/2023 Assessment & Plan (05/03/2023 11:12 PM INVESTIGATIVE SHOPPER): Patient has a skin tag on the right upper lid. It seems to be growing. Will refer to [facility] for evaluation and probable removal. Positive depression screening 04/29/2023 04/29/2023 Hyperglycemia 04/29/2023 05/03/2023 Medicare annual wellness visit, subsequent 04/29/2023 11/03/2023 Assessment & Plan (05/03/2023 11:13 PM INVESTIGATIVE SHOPPER): Encouraged healthy lifestyle, good nutrition and exercise. [...] 12/14/2023 Assessment & Plan (05/03/2023 11:13 PM INVESTIGATIVE SHOPPER): Mammogram order provided Assessment & Plan (05/03/2022 1:32 PM INVESTIGATIVE SHOPPER): Mammogram order provided Medicare annual wellness visit, subsequent 05/03/2022 10/30/2022 Assessment & Plan (05/03/2022 1:32 PM INVESTIGATIVE SHOPPER): Encouraged healthy lifestyle, good nutrition and exercise. Encouraged Calcium and Vitamin D and weight bearing exercise for bone health. Reviewed immunizations. Reviewed age appropirate screenings. Medicare Wellness Documentation is completed within the chart BMI 24.0-24.9, adult 04/29/2022 023 Assessment & Plan (04/29/2022 8:05 AM INVESTIGATIVE SHOPPER): Weight/BMI is in healthy range. Continue healthy lifestyle. Dysuria 02/03/2022 05/03/2022 Assessment & Plan (02/18/2022 9:14 AM INVESTIGATIVE SHOPPER): Recommend test of cure in 7-10 days Assessment & Plan (02/03/2022 4:52 PM INVESTIGATIVE SHOPPER): Recheck a UA today shows urine that [...] 05/03/2022 Assessment & Plan (02/03/2022 4:54 PM INVESTIGATIVE SHOPPER): Recheck a UA today shows urine that [...] 04/27/202105/02 Assessment & Plan (05/03/2022 1:32 PM INVESTIGATIVE SHOPPER): Patient due for colon cancer screening. Prefers Cologuard. No family history of colon cancer polyps Assessment & Plan (11/05/2021 9:20 PM CDT): Due to repeat colon cancer screening at 11 years. Patient states she received information from the GI and plans to follow-up with him to set the appointment. Assessment & Plan (04/27/2021 9:34 AM INVESTIGATIVE SHOPPER): Due for colon cancer screening. Prefers to follow back up with Dr. pete Fatigue 04/27/2021 04/29/2023 Assessment & Plan (10/30/2022 8:42 AM CDT): Probably multifactorial. Check labs and followup to re-evaluate Assessment & Plan (11/05/2021 9:20 PM CDT): Probably multifactorial. Check labs and followup to re-evaluate Assessment & Plan (04/27/2021 9:34 AM INVESTIGATIVE SHOPPER): Probably multifactorial. Check labs and followup to re-evaluate Medicare annual wellness visit, subsequent 04/27/2021 11/05/2021 Assessment & Plan (04/27/2021 9:35 AM INVESTIGATIVE SHOPPER): Encouraged healthy lifestyle, good nutrition and exercise. Encouraged Calcium and Vitamin D and weight bearing exercise for bone health. Reviewed immunizations. Reviewed age appropirate screenings. Medicare Wellness Documentation is completed within the chart BMI 24.0-24.9, adult 04/25/2021 024 Assessment & Plan (08/14/2023 7:53 AM CDT): Weight/BMI is in healthy range. Continue healthy lifestyle to maintain. Assessment & Plan (05/03/2023 11:13 PM INVESTIGATIVE SHOPPER): Weight/BMI is in healthy range. Continue healthy lifestyle to maintain. Assessment & Plan (11/05/2021 9:20 PM CDT): Weight/BMI is in healthy range. Continue healthy lifestyle to maintain. Weight/BMI is in healthy range. Continue healthy lifestyle to maintain. Assessment & Plan (04/25/2021 8:13 AM INVESTIGATIVE SHOPPER): Weight/BMI is in healthy range. Continue healthy [...] diabetes. Assessment & Plan (04/27/2021 9:34 AM INVESTIGATIVE SHOPPER): Pre-diabetes/hyperglycemia is a precursor to Dm. Stressed [...] diabetes. Assessment & Plan (01/17/2020 12:03 PM INVESTIGATIVE SHOPPER): Recheck labs Other fatigue 01/17/2020 07/17/2020 Assessment & Plan (01/17/2020 12:03 PM INVESTIGATIVE SHOPPER): Probably multifactorial. Check labs and followup to re-evaluate Medicare annual wellness visit, subsequent 01/16/2020 07/17/2020 Assessment & Plan (01/17/2020 12:02 PM INVESTIGATIVE SHOPPER): Encouraged healthy lifestyle, good nutrition and exercise. Encouraged Calcium and Vitamin D and weight bearing exercise for bone health. Reviewed immunizations. Reviewed age appropirate screenings. Medicare Wellness Documentation is completed within the chart Wart 04/09/2019 12/14/2023 Assessment & Plan (04/09/2019 12:05 PM INVESTIGATIVE SHOPPER): Pt reassure this is a benign lesion. Eustachian tube disorder 04/05/2019 Assessment & Plan (04/05/2019 11:19 PM INVESTIGATIVE SHOPPER): Start antihistamine, Mucinex and Steroid nasal spray. [...] aware. Assessment & Plan (04/27/2021 9:34 AM INVESTIGATIVE SHOPPER): Awaiting evaluation by Dermatology. Has appointment in May Assessment & Plan (12/18/2020 9:17 AM CDT): Patient is noting skin lesions changing her face and back. Will refer to Derm. Assessment & Plan (04/05/2019 11:21 PM INVESTIGATIVE SHOPPER): Reviewed procedure with patient including process, possible [...] 021 Assessment & Plan (01/17/2020 12:02 PM INVESTIGATIVE SHOPPER): Weight/BMI is in healthy range. Continue healthy lifestyle to maintain. Assessment & Plan (04/05/2019 10:47 AM INVESTIGATIVE SHOPPER): Weight/BMI is in healthy range. Continue healthy [...] oral antihistamine and eye antihistamine. Patient prefers [id number] product like Zaditor monitor. Pre-diabetes 06/17/2018 01/17/2020 Assessment & Plan (01/17/2020 12:02 PM INVESTIGATIVE SHOPPER): Pre-diabetes is a precursor to Dm. Stressed [...] help prevent you from progressing to diabetes. Encounters Date Type Department Care Team Description 05/26/2024 Orders Only [address] [place] [phone] Jyoti Edge PA Type 2 diabetes mellitus with hyperlipidemia (HCC) (Primary Dx); Fatigue, unspecified type 05/26/[address] [place] [phone] Jyoti Edge PA Additional Services Or Orders 05/15/2024 Results Follow-Up [address] [place] [phone] Jyoti Edge PA 05/12/2024 9:00 AM CDT Clinical Support [address] [place] [phone] Urinary tract infection without hematuria, site unspecified (Primary Dx) 05/11/[address] [phone] Jyoti Edge PA 05/06/2024 Results Follow-Up [address] [phone] Jyoti Edge PA 05/04/2024 9:00 AM INVESTIGATIVE SHOPPER Clinical Support [address] [phone] Dysuria (Primary Dx) 05/04/[address] [phone] Jyoti Edge PA 04/07/2024 1:00 PM INVESTIGATIVE SHOPPER Office Visit [address] [phone] Jyoti Edge PA Gross hematuria (Primary Dx); Dysuria; Controlled type 2 diabetes mellitus without complication, without long-term current use of insulin (HCC); Malignant neoplasm of head of pancreas (HCC); Current moderate episode of major depressive disorder without prior episode (HCC); Type 2 diabetes mellitus with hyperlipidemia (HCC); BMI 20.0-20.9, adult 04/02/2024 10:00 AM INVESTIGATIVE SHOPPER Clinical Support [address] [place] [phone] Dysuria (Primary Dx) 03/26/2024 9:00 AM INVESTIGATIVE SHOPPER Office Visit [address] [phone] Jyoti Edge PA Type 2 diabetes mellitus with hyperlipidemia (HCC) (Primary Dx); Controlled type 2 diabetes mellitus without complication, without long-term current use of insulin (HCC); Malignant neoplasm of head of pancreas (HCC); Current moderate episode of major depressive disorder without prior episode (HCC); Appetite loss; BMI 21.0-21.9, adult; Episode of recurrent major depressive disorder, unspecified depression episode severity 03/18/2024 Orders Only [address] [place] [phone] Jyoti Edge PA Controlled type 2 diabetes mellitus without complication, without long-term current use of insulin (HCC) (Primary Dx); Malignant neoplasm of head of pancreas (HCC); Other fatigue 03/15/[address] [place] [address] Jyoti Edge PA Referral Request from Last 3 Months Immunizations Immunization Administration Dates Next Due COVID-19 mRNA ([employer]) 0.3 m L (30 mcg) vaccine (12 years and up) 11/05/2023 Influenza, Quad, Adjuvantate d, Intramuscular 12/03/2022,12/05/2021,12/06/2019 Influenza, Quadrivalent, Hig h Dose, Preservative Free, Intrr 12/18/2020 Influenza, Trivalent, Adjuva nted, Intramuscular 12/18/2023 Influenza, Trivalent, High D ose, Split, Preservative Free, Intramuscular 12/01/2018 Influenza, Unspecified 12/03/2022,2021,01/20/2020,01/01,12/01/2017(Deferred: Patient Refused) [employer] SARS-CoV-2 Monovalent Vaccination (12+ Yrs) PURPLE 12/03/2022 Pneumococcal Conjugate PCV 13 10/15/2016 Pneumococcal Polysaccharide PPV23 10/20/2018 RSV, Bivalent, Protein Subun it Rsvpref, Diluent (Abrysvo) 12/18/2023 Tdap 04/27/2015 ZOSTER LIVE 03/18/2013 ZOSTER Recombinant 06/14/2020,01/20/2020 Family History Medical History Relation Name Comments Arthritis Father Hypertension Father Diabetes Mother Hypertension Mother Stroke Mother Diabetes Mother's Sister Relation Name Status Comments Father Mother Mother's Sister Social History Tobacco Use Types Packs/Day Years [...] on file Legal Sex Female 5:48 PM INVESTIGATIVE SHOPPER Gender Identity Not on file Sexual Orientation Not on file 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 Not on file Not on file Not on file Obstetrics History Last Filed Vital Signs Vital Sign Reading Time Taken Comments Blood Pressure 126/82 04/07/2024 1:03 PM INVESTIGATIVE SHOPPER Pulse 98 04/07/2024 1:03 PM INVESTIGATIVE SHOPPER Temperature 36.7 C (98.1 F) 04/07/2024 1:03 PM INVESTIGATIVE SHOPPER Respiratory Rate 16 10/28/2023 2:04 PM CDT Oxygen Saturation 99% 04/07/2024 1:03 PM INVESTIGATIVE SHOPPER Inhaled Oxygen Concentration - - Weight 51.2 kg (112 lb 14.4 oz) 04/07/2024 1:03 PM INVESTIGATIVE SHOPPER Height 157.5 cm (5' 2 ) 04/07/2024 1:03 PM INVESTIGATIVE SHOPPER Body Mass Index 20.65 04/07/2024 1:03 PM INVESTIGATIVE SHOPPER Plan of Treatment Health Maintenance Due Date Last Done Comments Hepatitis C Screening 1950 Foot Exam 1950 Hepatitis B Screening 08/05/1968 Well Visit 65+ 04/29/2024 04/29/2023, 10/02, 04/29/2022, Additional history exists Covid-19 Vaccine (2023-04 5 season) 2024 11/05/2023, 12/03/2022, 12/03/2022, Additional history exists Osteoporosis Screening-Bone Density Scan 08/16/2024 08/16/2022, 05/12/2020 Dilated Eye Exam 09/09/2024 09/10/2023 Breast Cancer Screening-Mammogram 10/01/2024 10/02/2023, 06/27/2022, 12/31/2019, Additional history exists eGFR 11/10/2024 11/11/2023, 06/2023, 04/10/2023, Additional history exists Hemoglobin A1C 11/26/2024 05/26/2024, 03/04, 11/15/2023, Additional history exists Depression Screening 04/07/2025 04/07/2024, 03/26/2024, 12/02/2023, Additional history exists Fall Risk Assessment 04/07/2025 04/07/2024, 03/26/2024, 04/29/2023, Additional history exists DTaP/Tdap/Td Vaccine (2 - Td or Tdap) 04/27/2025 04/27/2015 Colon Cancer Screening-DNA Stool 05/07/2025 05/08/19 23, 05/03/2011 Albumin Creatinine Ratio, Urine 05/26/2025 , 08/14/2023 Lipid Panel 05/26/2025 05/26/2024, 11/01, 08/05/2023, Additional history exists Colon Cancer Screening-CT Colonography Discontinued 05/03/2011 Colon Cancer Screening-Colonoscopy Discontinued 05/03/2011 Colon Cancer Screening-Sigmoidoscopy Discontinued 05/03/2011 Pneumococcal vaccine 65+ Completed 10/20/2018, 10/01 Zoster Vaccine Completed 06/14/2020, 01/01, 03/18/2013 Colon Cancer Screening-FIT Discontinued 05/07/2022, Influenza Vaccine Completed 12/18/2023, , 12/03/2022, Additional history exists Procedures Procedure Name Priority Date/Time Associated Diagnosis [...] POCT URINALYSIS DIPSTICK Routine 05/04/2024 8:26 AM INVESTIGATIVE SHOPPER Dysuria URINE CULTURE Routine 05/04/2024 8:22 AM INVESTIGATIVE SHOPPER Dysuria URINE CULTURE Routine 04/07/2024 1:15 PM INVESTIGATIVE SHOPPER Dysuria POCT URINALYSIS DIPSTICK Routine 04/07/2024 1:28 AM INVESTIGATIVE SHOPPER Dysuria POCT URINALYSIS DIPSTICK Routine 04/02/2024 11:11 AM INVESTIGATIVE SHOPPER Dysuria URINE CULTURE Routine 04/02/2024 9:39 AM INVESTIGATIVE SHOPPER Dysuria POCT HEMOGLOBIN A1C Routine 03/26/2024 9 :10 AM INVESTIGATIVE SHOPPER Type 2 diabetes mellitus with hyperlipidemia (HCC) [...] STOOL DNA COLOGUARD Routine 05/07/2022 8:00 AM INVESTIGATIVE SHOPPER Colon cancer screening COLONOSCOPY Routine 05/03/2011 from [...] ZULETA LAB URINE ORDERABLES Final Result [facility] [address] [facility] [place] [address] * TSH (05/26/2024 9:01 AM CDT) Pathologist [facility] TSH 1.46 0.40 - 4.50 mIU/L [facility] Blood 05/26/2024 9:01 AM CDT 05/26/2024 9:02 AM CDT Narrative [facility] - 05/27/2024 1:42 AM CDT FASTING:YES FASTING: YES Jyoti ZULETA LAB BLOOD ORDERABLES Final Result Performing Organization Address [facility] Co de Phone Number [facility] [address] [place] [address] * (ABNORMAL) Hemoglobin A1c (05/26/2024 9:01 AM CDT) Hgb A1C 6.0(H) <5.7 % of total Hgb [facility] Jay Comment: For someone without known diabetes, [...] BLOOD ORDERABLES Final Result Performing Organization Address [facility] de Phone Number [facility] [address] [place] [address] * (ABNORMAL) Lipid panel (05/26/2024 9:01 AM CDT) Cholesterol 214(H) <200 mg/dL [facility] HDL 41(L) > OR = 50 mg/dL [facility] Triglycerides 244(H) <150 mg/dL [facility] Comment: If a non-fasting specimen was collected, consider repeat triglyceride testing on a fasting specimen if clinically indicated. Mayito et al. J. of Clin. Lipidol. 2015;9:129-169. LDL 134(H) mg/dL (calc) [facility] Comment: Reference range: <100 Desirable range <100 mg/dL for primary prevention; <70 mg/dL for patients with CHD or diabetic patients with > or = 2 CHD risk factors. LDL-C is now calculated using the Tre calculation, which is a validated novel method providing better accuracy than the Friedewald equation in the estimation of LDL-C. Terrance HAMILTON et al. KAJAL. 2013;310(19): 2721-0094 (http://education.SocialChorus/faq/EGK785) Chol/HDL ratio 5.2(H) <5.0 (calc) [facility] Non-HDL, (LDL+VLDL) 173(H) <130 mg/dL (calc) [facility] Jay Comment: For patients with diabetes plus 1 major ASCVD risk factor, treating to a non-HDL-C goal of <100 mg/dL (LDL-C of <70 mg/dL) is considered a therapeutic option. Blood 05/26/2024 9:01 AM CDT 05/26/2024 9:02 AM CDT Narrative [facility] - 05/27/2024 1:42 AM CDT FASTING:YES FASTING: YES Jyoti ZULETA LAB BLOOD ORDERABLES Final Result [facility] [address] [place] [address] * (ABNORMAL) POCT urinalysis dipstick (05/12/2024 8:35 AM CDT) Glucose, ur, POC 100.(A) Negative MG/DL Bilirubin, ur, POC Large Negative, Small, Moderate, Large Ketones, ur, POC Negative Negative Specific [place], POC 1.025 1.003 - 1.030 Blood, ur, POC Negative Negative pH, ur, POC 6.0 5.0 - 8.0 Protein, ur, POC 30.(A) Negative Urobilinogen, urine, POC 0.2 0.2 - 1.0 mg/dL Nitrite, ur, POC Negative Negative Leukocytes, ur, POC Negative Negative Lot Number [id number] Urine 05/12/2024 8:35 AM CDT Jyoti ZULETA POINT OF CARE TEST ORDERAB LES Final Result * Urine culture Urine, clean voided (05/12/2024 8:31 AM CDT) Urine culture [facility] Comment: CULTURE, URINE, ROUTINE Micro Number: [id number] Test Status: Final Specimen Source: Urine, clean catch Specimen Quality: Adequate Result: No Growth Urine, clean voided 05/12/2024 8:31 AM CDT 05/12/2024 11:44 PM CDT Jyoti ZULETA LAB MICROBIOLOGY - GENERAL ORDERABLES Final Result [facility] [address] [place] [address] * (ABNORMAL) POCT urinalysis dipstick (05/04/2024 8:26 AM INVESTIGATIVE SHOPPER) Pathologist [facility] Glucose, ur, POC 100.(A) Negative MG/DL Bilirubin, ur, POC Large Negative, Small, Moderate, Large Ketones, ur, POC Trace(A) Negative Specific [place], POC 1.025 1.003 - 1.030 Blood, ur, POC Large(A) Negative pH, ur, POC 6.0 5.0 - 8.0 Protein, ur, POC 100.(A) Negative Urobilinogen, urine, POC 2.0(A) 0.2 - 1.0 mg/dL Nitrite, ur, POC Negative Negative Leukocytes, ur, POC Large(A) Negative Lot Number [id number] Urine 05/04/2024 8:26 AM INVESTIGATIVE SHOPPER Jyoti ZULETA POINT OF CARE TEST ORDERAB LES Final Result * (ABNORMAL) Urine culture Urine, clean voided (05/04/2024 8:22 AM INVESTIGATIVE SHOPPER) Urine culture (A) [facility] Comment: CULTURE, URINE, ROUTINE Micro Number: [id number] Test Status: Final Specimen Source: Clean voided [...] loracarbef. Urine, clean voided 05/04/2024 8:22 AM INVESTIGATIVE SHOPPER 05/05/2024 3:42 AM INVESTIGATIVE SHOPPER Jyoti ZULETA LAB MICROBIOLOGY - GENERAL ORDERABLES Final Result [facility] [address] [place] [address] * Urine culture Urine, clean voided (04/07/2024 1:15 PM INVESTIGATIVE SHOPPER) Urine culture [facility] Comment: CULTURE, URINE, ROUTINE Micro Number: [id number] Test Status: Final Specimen Source: Urine, clean catch Specimen Quality: Adequate Result: No Growth Urine, clean voided 04/07/2024 1:15 PM INVESTIGATIVE SHOPPER 04/08/2024 1:51 AM INVESTIGATIVE SHOPPER Jyoti ZULETA LAB MICROBIOLOGY - GENERAL ORDERABLES Final Result [facility] [address] [place] [address] * (ABNORMAL) POCT urinalysis dipstick (04/07/2024 1:28 AM INVESTIGATIVE SHOPPER) Glucose, ur, POC 100.(A) Negative MG/DL Bilirubin, ur, POC Negative Negative, Small, Moderate, Large Ketones, ur, POC Negative Negative Specific [place], POC 1.030 1.003 - 1.030 Blood, ur, POC Trace(A) Negative pH, ur, POC 5.5 5.0 - 8.0 Protein, ur, POC Trace(A) Negative Urobilinogen, urine, POC 0.2 0.2 - 1.0 mg/dL Nitrite, ur, POC Negative Negative Leukocytes, ur, POC Negative Negative Lot Number [id number] Urine 04/07/2024 1:28 AM INVESTIGATIVE SHOPPER Jyoti ZULETA POINT OF CARE TEST ORDERAB LES Final Result * (ABNORMAL) POCT urinalysis dipstick (04/02/2024 11:11 AM INVESTIGATIVE SHOPPER) Glucose, ur, POC Negative Negative MG/DL Bilirubin, ur, POC Negative Negative, Small, Moderate, Large Ketones, ur, POC Negative Negative Specific [place], POC 1.020 1.003 - 1.030 Blood, ur, POC Trace(A) Negative pH, ur, POC 6.0 5.0 - 8.0 Protein, ur, POC Trace(A) Negative Urobilinogen, urine, POC 0.2 0.2 - 1.0 mg/dL Nitrite, ur, POC Negative Negative Leukocytes, ur, POC Trace(A) Negative Lot Number [id number] Urine 04/02/2024 11:1 1 AM INVESTIGATIVE SHOPPER Result Renard ZULETA POINT OF CARE TEST ORDERAB LES Final Result * Urine culture Urine, clean voided (04/02/2024 9:39 AM INVESTIGATIVE SHOPPER) Pathologist [facility] Urine culture [facility] Comment: CULTURE, URINE, ROUTINE Micro Number: [id number] Test Status: Final Specimen Source: Not given Specimen Quality: Adequate Result: No Growth Urine, clean voided 04/02/2024 9:39 AM INVESTIGATIVE SHOPPER 04/03/2024 4:43 AM INVESTIGATIVE SHOPPER Result Renard ZULETA LAB MICROBIOLOGY - GENERAL ORDERABLES Final Result [facility] [address] [place] [address] * (ABNORMAL) POCT hemoglobin A1c (03/26/2024 9:10 AM INVESTIGATIVE SHOPPER) [facility] Hemoglobin A1C, POC 6.0 4.0 - 5.6 % Blood 03/26/2024 9:10 AM INVESTIGATIVE SHOPPER us Jyoti ZULETA POINT OF CARE TEST ORDERAB LES Final Result * (ABNORMAL) Comprehensive metabolic panel (11/11/2023 7:08 AM CDT) Pathologist [facility] Glucose 158(H) 65 - 99 mg/dL [employer] GamesHerlinda Jay Comment: For someone without known diabetes, a glucose value >125 mg/dL indicates that they may have diabetes and this should be confirmed with a follow-up test. Fasting reference interval BUN 8 7 - 25 mg/dL Pascual Jay Creatinine 0.66 0.60 - 1.00 mg/dL Pascual FinalCADKamini Jay eGFR 93 > OR = 60 mL/min/1.7 3m2 Nutmeg EducationKamini Jay BUN/creat ratio SEE NOTE: 6 - 22 (calc) Pascual FinalCADKamini Jay Comment: Not Reported: BUN and Creatinine are within reference range. Sodium 139 135 - 146 mmol/L Nutmeg EducationKamini Jay Potassium, pl 3.7 3.5 - 5.3 mmol/L Pascual AnnHerlinda Jay Chloride 100 98 - 110 mmol/L Pascual Jay CO2 28 20 - 32 mmol/L P[facility]ual Jay Calcium 9.2 8.6 - 10.4 mg/dL Pascual Jay Protein, sr 6.9 6.1 - 8.1 g/dL Pascual Jay Albumin 4.5 3.6 - 5.1 g/dL Pascual Jay GLOBULIN 2.4 1.9 - 3.7 g/dL (calc) Pascual Jay Alb/glob ratio 1.9 1.0 - 2.5 (calc) Pascual Ann-Herlinda Jay Bilirubin, total 0.6 0.2 - 1.2 mg/dL [facility] AnnHerlinda Jay Alk phos 72 37 - 153 U/L P[facility]ual AnnHerlinda Jay AST 21 10 - 35 U/L [place] AnnJAM TechnologiesHerlinda Jay ALT (SGPT) 18 6 - 29 U/L [employer] Rh[employer] GamesHerlinda Jay Blood 11/11/2023 7:08 AM CDT 11/11/2023 7:08 AM CDT Narrative [facility] - 11/12/2023 6:02 AM CDT FASTING:YES FASTING: YES Jyoti ZULETA LAB BLOOD ORDERABLES Final Result [facility] [address] [place] [address] * (ABNORMAL) Screening Mammogram Bilateral W Raj (10/02/2023 2:09 PM CDT) Anatomical Region Laterality Modality Breast Bilateral Mammography Impressions 10/02/2023 2:09 PM CDT Additional mammographic views and possible breast ultrasound recommended. BI-RADS Category 0: Incomplete. Needs additional imaging evaluation. us Jyoti ZULETA IMG MAMMO PROCEDURES Final Result * DIABETES EYE EXAM (09/10/2023 8:33 AM CDT) SCRIBED DIABETIC DILATED EYE EXAM Normal Historical Provider HEALTH MAINTENANCE Edited Result - Final * (ABNORMAL) Dexa Axial Skeleton Bone Density 1 or 2 Site (08/16/2022) Pathologist [facility] SCRIBED DXA T-SCORE -1.8 Anatomical Region Laterality Modality Body N/A Radiographic Eunice ging Jyoti ZULETA IMG DXA PROCEDURES Final R esult * Stool DNA - Cologuard (05/07/2022 8:00 AM INVESTIGATIVE SHOPPER) Pathologist [facility] Stool DNA - Cologuard Negative Negative [place] (CLIA #:[id number]) Comment: NEGATIVE TEST RESULT. A negative Cologuard [...] (Job Whitfield al, N Engl J Med 2014;370(14):8510-7942) The normal value (reference range) for this assay is negative. COLOGUARD RE-SCREENING RECOMMENDATION: Periodic colorectal cancer screening is an important part of preventive healthcare for asymptomatic individuals at average risk for colorectal cancer. Following a negative Cologuard result, the [place] [employer] and U.S. Multi-Society Task Force screening guidelines recommend a Cologuard re-screening interval of 3 years. References: [place] [employer] Guideline for Colorectal Cancer Screening: https://www.cancer.org/cancer/fbfkj-eqtofl-lqeboc/emsyudicu-pdtrxwifu-hlpwotq/ac s-rec ommendations.html.; Guy GARCIA, Que CALHOUN, Nitesh JOE, Colorectal Cancer Screening: Recommendations for Physicians and Patients from the U.S. Multi-Society Task Force on Colorectal Cancer Screening , Am J Gastroenterology 2017; 112:2027-5914. TEST DESCRIPTION: Composite algorithmic analysis of stool [...] screened with both Cologuard and colonoscopy. (Job Gómez et al, N Engl J Med 2014;370(14):7678-4571.) Cologuard may produce a false negative or false positive result (no colorectal cancer or precancerous polyp present at colonoscopy follow up). A negative Cologuard test result does not guarantee the absence of CRC or advanced adenoma (pre-cancer). The current Cologuard screening interval is every 3 years. ([place] [employer] and U.S. Multi-Society Task Force). Cologuard performance data in a 10,000 patient pivotal study using colonoscopy as the reference method can be accessed at the following location: www.[employer].Agilence/results. Additional description of the Cologuard test process, warnings and precautions can be found at www.Labtivard.com. Stool 05/07/2022 8:00 AM INVESTIGATIVE SHOPPER 05/08/2022 1:53 PM INVESTIGATIVE SHOPPER us Jyoti ZULETA LAB BODY FLUIDS AND STOOLS ORDERABLES Final Result [facility] [employer] [facility] (CLIA #:[id number]) [address] [place] [address] * Colonoscopy (05/03/2011) Anatomical Region Laterality Modality Other Narrative 05/03/2011 Dr. Pete -- 2011--->2021 us Historical Provider ENDOSCOPY PROCEDURES Irina l Result from Last 3 Months or Most Recently Relevant to Health Maintenance Insurance [facility] Care Teams Service Coordinator Relationship Specialty Start Date End Date Jyoti Edge PA [address] [place], [place] [id number] PCP - General Internal Medicine 06/17/18
[2024-05-27 11:23] LABS: Alkaline Phosphatase 1501 U/L (38-126)
== END 2024-05-27 10:15 | disposition home or self-care (01) ==
PROVIDERS: PCP Family Medicine; Visit Provider Radiology Radiation Oncology
DX: C25.9 Malignant neoplasm of pancreas, unspecified (principal); K76.9 Liver disease, unspecified; K21.9 Gastro-esophageal reflux disease without esophagitis; J98.11 Atelectasis; R91.8 Other nonspecific abnormal finding of lung field; J90 Pleural effusion, not elsewhere classified; R18.8 Other ascites; N28.89 Other specified disorders of kidney and ureter
CPT/HCPCS: 36415; 74177; 80053; Q9967

== ENCOUNTER 2024-06-01 09:30 | Outpatient (RCR) | payer OTHER, SELFPAY ==
[2024-04-01 09:52] VITALS: BP 127/56; PULSE 107; RESP 12; TEMP 36.6; O2SAT 99
--- NOTE | 2024-04-06 11:23 | PDRADONCCN ---
[facility] Date/Time Seen Date/Time: 04/01/2024 11:23 Identifying Data Identifying Data: Ms. Chun is a very pleasant 73-year-old female was accompanied with her today to explore treatment options for known diagnosis of pancreatic cancer. History of Present Illness History of Present Illness: Ms. Chun is a 73-year-old female who started noticing progressive nausea and vomiting in November of 2023. Patient started after eating her symptoms secondary to her medication for recurrent yeast infections. However patient started noticing that there was more progressive nausea with impaired appetite and weight loss hence presented to emergency department for further management. During her evaluation patient had abnormal imaging that is a density at the head of the pancreas with prominent pancreatic duct and biliary duct system and tumor markers with CA 19.9 was elevated which was suspicious for malignancy. Hence patient was referred to GI for further evaluation and management during which biopsies were done which was consistent for adenocarcinoma of the pancreas. MRI with MRCP on 11/16/2023 revealed 2.5 cm, solid mass in the pancreatic head with restricted diffusion. no retroperitoneal lymphadenopathy. Hence, patient was recommended to undergo neoadjuvant chemotherapy followed by possible surgery. Patient underwent 6 cycles of FOLFIRINOX and has post treatment break secondary to profound dehydration and weight loss and prefers to not receive any chemotherapy. and patient had a CT scan of the abdomen which revealed minimal response to the treatment and hence was referred to be evaluated for possible concurrent chemoradiation versus radiation alone. At present, patient has been doing very well able to eat and drink after not receiving chemotherapy for last 2 weeks. denies any other symptoms Medical History Medical History (Updated 04/06/24 @ 12:12 by Padma Potter RN) Diabetes Nephrolithiasis Social History Social History Smoking status: Never smoker Spiritual care concerns: No Allergies Allergies Allergy/AdvReac Type Severity Reaction Status Date / Time No Known Allergies Allergy Unknown Unverified 12/04/18 09:09 Review of Systems Review of Systems ROS Unobtainable: All systems reviewed & are unremarkable except as noted in HPI and below Constitutional Constitutional: Reports as per HPI, Reports anorexia, Reports fatigue, Reports poor appetite, Reports weakness and Reports weight loss Eyes Eyes: Reports as per HPI ENT Ears, Nose, Mouth, and Throat: Reports no additional ear, nose, mouth, and throat complaints Cardiovascular Cardiovascular: Reports no additional cardiovascular complaints Respiratory Respiratory: Reports no additional respiratory complaints Gastrointestinal Gastrointestinal: Reports as per HPI Genitourinary Genitourinary: Reports no additional female genitourinary complaints Musculoskeletal Musculoskeletal: Reports no additional musculoskeletal complaints Integumentary/Breasts Skin/Breast: Reports no additional skin complaints Neurologic Neurologic: Reports no additional neurologic complaints Psychiatric Psychiatric: Reports no additional psychiatric complaints Endocrine Endocrine: Reports no additional endocrine complaints Hematologic/Lymphatic Hematologic/Lymphatic: Reports no additional hematologic/lymphatic complaints Allergic/Immunologic Allergic/Immunologic: Reports no additional allergic/immunologic complaints Exam General: Very thin, fragile 73-year-old lady well oriented to time place and person. ambulatory, not in apparent distress KF scale of 100 Vital Signs: Reviewed in the chart Exam HEENT: EOMI and PERRLA Neck: supple Lungs: clear to auscultation Heart: no murmurs, gallops, or rubs Abdomen: abdomen soft, non-distended and normal bowel sounds Extremities: normal pulses Neurological: normal gait Psychological: mental status NL Lab Results: reviewed in the EHR Radiologic Data: reviewed in the EHR Pathologic Data: reviewed in EHR Impression Impression Impression: T1 N0 M0, adenocarcinoma of the pancreas status post 6 cycles of FOLFIRINOX with minimal response on recent CT scans. Recommendations Recommendations Recommendations: Patient was recommended to consider MRI of the abdomen to confirm her treatment response from chemotherapy. Patient was also recommended to be evaluated by her surgeon as per the schedule for possible Whipple surgery as discussed during her initial evaluation and management. We discussed about external beam radiation to the abdominal area which included the pancreatic mass and regional lymph nodes in several different techniques including conventional radiation, proton treatments and possibility of stereotactic radiotherapy based on her MRI scans and surgical evaluation. we discussed the technical aspects of treatment, benefits and side effects of external beam radiation. After having detailed discussion patient was agreeable to consider the radiation treatments hence patient was recommended to undergo MRI scans and to be re-evaluated in 1-2 weeks for further management.
[2024-04-22 09:56] VITALS: BP 143/67; PULSE 98; RESP 12; TEMP 37.4; O2SAT 99
--- NOTE | 2024-05-06 10:47 | WPDRADIATPRO ---
Radiation Procedure Note Date/Time Date/Time: 05/06/24 10:47 Summary Summary: VERIFICATION SIMULATION NOTE This patient is a 73 year old who is scheduled to begin external beam radiation for a known diagnosis of pancreatic cancer. The patient was brought to the Treatment Room where a time out was performed.? The treatment plan was reviewed.? The patient?s questions were answered to their satisfaction.? The patient was placed in the treatment position including utilization of appropriate immobilization devices.?? The CT images were fused and aligned to the treatment planning CT image set.? I personally reviewed the CT alignment and resulting couch adjustments for accuracy.? ? Minor shifts and adjustments were made.?? The final portal images were reviewed and approved.? The patient images were reviewed and approved for treatments.?
[2024-05-06 10:49] VITALS: BP 167/88; PULSE 88; RESP 20; TEMP 36.6; O2SAT 99
--- NOTE | 2024-05-06 10:54 | WPDRADONCOTV ---
On Treatment Visit Date/Time of Treatment Date/Time: 05/06/24 10:54 Identifying data: History of Present Illness: Ms. Chun is a 73-year-old female who started noticing progressive nausea and vomiting in November of 2023. Patient started after eating her symptoms secondary to her medication for recurrent yeast infections. However patient started noticing that there was more progressive nausea with impaired appetite and weight loss hence presented to emergency department for further management. During her evaluation patient had abnormal imaging that is a density at the head of the pancreas with prominent pancreatic duct and biliary duct system and tumor markers with CA 19.9 was elevated which was suspicious for malignancy. Hence patient was referred to GI for further evaluation and management during which biopsies were done which was consistent for adenocarcinoma of the pancreas. MRI with MRCP on 11/16/2023 revealed 2.5 cm, solid mass in the pancreatic head with restricted diffusion. no retroperitoneal lymphadenopathy. Hence, patient was recommended to undergo neoadjuvant chemotherapy followed by possible surgery. Patient underwent 6 cycles of FOLFIRINOX and has post treatment break secondary to profound dehydration and weight loss and prefers to not receive any chemotherapy. and patient had a CT scan of the abdomen which revealed minimal response to the treatment and hence was referred to be evaluated for possible concurrent chemoradiation versus radiation alone. Fraction: Patient received her 1st fraction today at 200 cGy per fraction H&P - Exam General: Patient tolerated her 1st treatment very well complains of nausea and some backache for which she was diagnosed with urinary tract infection and has been prescribed antibiotics for the same Assessment/Plan Assessment Assessment: Recommended to continue her treatment with empty stomach and patient was recommended to take probiotics. Patient continues to have dark colored urine hands basic metabolic panel will be a ordered and CA 19 levels to 10 confirmed no progression Plan Plan: Will continue treatment
[2024-05-07 10:35] LABS: Alanine Aminotransferase 216 U/L (6-35); Albumin Level 4.1 g/dL (3.5-5.1); Alkaline Phosphatase 1011 U/L (38-126); Anion Gap 9 mmol/L (4-12); Aspartate Amino Transferase 203 U/L (14-36); Bilirubin,Total 7.8 mg/dL (0.2-1.3); Blood Urea Nitrogen 9 mg/dL (7-17); Calcium 9.3 mg/dL (8.4-10.2); Carbon Dioxide 28 mmol/L (22-30); Chloride 101 mmol/L (98-107); Estimated Glomerular Filt Rate > 60; Glucose 203 mg/dL (65-110); Potassium 3.4 mmol/L (3.4-5.0); Sodium 138 mmol/L (137-145)
[2024-05-09 06:58] LABS: CA 19-9 1684 U/mL (<34)
--- NOTE | 2024-05-11 10:09 | WPDRADONCOTV ---
On Treatment Visit Date/Time of Treatment Date/Time: 05/11/24 10:09 History: Identifying data: History of Present Illness: Ms. Chun is a 73-year-old female who started noticing progressive nausea and vomiting in November of 2023. Patient started after eating her symptoms secondary to her medication for recurrent yeast infections. However patient started noticing that there was more progressive nausea with impaired appetite and weight loss hence presented to emergency department for further management. During her evaluation patient had abnormal imaging that is a density at the head of the pancreas with prominent pancreatic duct and biliary duct system and tumor markers with CA 19.9 was elevated which was suspicious for malignancy. Hence patient was referred to GI for further evaluation and management during which biopsies were done which was consistent for adenocarcinoma of the pancreas. MRI with MRCP on 11/16/2023 revealed 2.5 cm, solid mass in the pancreatic head with restricted diffusion. no retroperitoneal lymphadenopathy. Hence, patient was recommended to undergo neoadjuvant chemotherapy followed by possible surgery. Patient underwent 6 cycles of FOLFIRINOX and has post treatment break secondary to profound dehydration and weight loss and prefers to not receive any chemotherapy. and patient had a CT scan of the abdomen which revealed minimal response to the treatment and hence was referred to be evaluated for possible concurrent chemoradiation versus radiation alone. Fraction: 06/25 Fx 880cGy/5500 cGy H&P - Exam General: She continues to have some intermittent nausea. She has noticed progressive jaundice. Labs performed on 05/07 reviewed and show significant elevation of LFTs, Tbili c/w obstructive biliary process. CA-19 9 has increased as well, however only comparison was ~400s at initial diagnosis. 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 Will continue treatment in the interim. Melody Espinoza MD H&P - Exam Lab Results: Laboratory Last Values Sodium 138 mmol/L (137-145) 05/07/24 10:00 Potassium 3.4 mmol/L (3.4-5.0) 05/07/24 10:00 Chloride 101 mmol/L (98-107) 05/07/24 10:00 Carbon Dioxide 28 mmol/L (22-30) 05/07/24 10:00 Anion Gap 9 mmol/L (4-12) 05/07/24 10:00 BUN 9 mg/dL (7-17) 05/07/24 10:00 Creatinine 0.44 mg/dL (0.7-1.0) L 05/07/24 10:00 Estim Creat Clear Calc Not Reportable 05/07/24 10:00 Estimated GFR > 60 (59-) 05/07/24 10:00 Glucose 203 mg/dL (65-110) H 05/07/24 10:00 Calcium 9.3 mg/dL (8.4-10.2) 05/07/24 10:00 Total Bilirubin 7.8 mg/dL (0.2-1.3) H 05/07/24 10:00 AST 203 U/L (14-36) H 05/07/24 10:00 ALT 216 U/L (6-35) H 05/07/24 10:00 Alkaline Phosphatase 1011 U/L (38-126) H 05/07/24 10:00 Total Protein 7.0 g/dL (6.3-8.2) 05/07/24 10:00 Albumin 4.1 g/dL (3.5-5.1) 05/07/24 10:00 CA 19-9 Antigen 1684 U/mL (<34) H 05/07/24 10:00
[2024-05-20 09:27] VITALS: BP 143/61; PULSE 88; RESP 12; TEMP 36.9; O2SAT 100
--- NOTE | 2024-05-20 10:07 | WPDRADONCOTV ---
On Treatment Visit Date/Time of Treatment Date/Time: 05/20/24 10:07 History: Identifying data: History of Present Illness: Ms. Chun is a 73-year-old female who started noticing progressive nausea and vomiting in November of 2023. Patient started after eating her symptoms secondary to her medication for recurrent yeast infections. However patient started noticing that there was more progressive nausea with impaired appetite and weight loss hence presented to emergency department for further management. During her evaluation patient had abnormal imaging that is a density at the head of the pancreas with prominent pancreatic duct and biliary duct system and tumor markers with CA 19.9 was elevated which was suspicious for malignancy. Hence patient was referred to GI for further evaluation and management during which biopsies were done which was consistent for adenocarcinoma of the pancreas. MRI with MRCP on 11/16/2023 revealed 2.5 cm, solid mass in the pancreatic head with restricted diffusion. no retroperitoneal lymphadenopathy. Hence, patient was recommended to undergo neoadjuvant chemotherapy followed by possible surgery. Patient underwent 6 cycles of FOLFIRINOX and has post treatment break secondary to profound dehydration and weight loss and prefers to not receive any chemotherapy. and patient had a CT scan of the abdomen which revealed minimal response to the treatment and hence was referred to be evaluated for possible concurrent chemoradiation versus radiation alone. Fraction: 12/25 Fx 2200cGy/5500 cGy H&P - Exam Vital Signs: Vital Signs - 24 hr 05/20/24 09:27 Temperature 36.9 C Pulse Rate 88 Respiratory Rate 12 Blood Pressure 143/61 H Pulse Oximetry 100 Tolerating the treatments well. Patient still continues to have some bloating however the bowel sounds are intact. Pain: 0/10 Lab Results: Laboratory Last Values Sodium 138 mmol/L (137-145) 05/07/24 10:00 Potassium 3.4 mmol/L (3.4-5.0) 05/07/24 10:00 Chloride 101 mmol/L (98-107) 05/07/24 10:00 Carbon Dioxide 28 mmol/L (22-30) 05/07/24 10:00 Anion Gap 9 mmol/L (4-12) 05/07/24 10:00 BUN 9 mg/dL (7-17) 05/07/24 10:00 Creatinine 0.44 mg/dL (0.7-1.0) L 05/07/24 10:00 Estim Creat Clear Calc Not Reportable 05/07/24 10:00 Estimated GFR > 60 (59-) 05/07/24 10:00 Glucose 203 mg/dL (65-110) H 05/07/24 10:00 Calcium 9.3 mg/dL (8.4-10.2) 05/07/24 10:00 Total Bilirubin 7.8 mg/dL (0.2-1.3) H 05/07/24 10:00 AST 203 U/L (14-36) H 05/07/24 10:00 ALT 216 U/L (6-35) H 05/07/24 10:00 Alkaline Phosphatase 1011 U/L (38-126) H 05/07/24 10:00 Total Protein 7.0 g/dL (6.3-8.2) 05/07/24 10:00 Albumin 4.1 g/dL (3.5-5.1) 05/07/24 10:00 CA 19-9 Antigen 1684 U/mL (<34) H 05/07/24 10:00 Assessment/Plan Assessment Assessment: Was recommended to continue her treatments and keep an eye on low residue diet. Plan Plan: Imodium for loose stools Continue treatment
[2024-05-27 09:38] VITALS: BP 133/65; PULSE 99; RESP 20; TEMP 37.4; O2SAT 99
--- NOTE | 2024-05-27 09:39 | WPDRADONCOTV ---
On Treatment Visit Date/Time of Treatment Date/Time: 05/27/24 09:39 History: Identifying data: History of Present Illness: Ms. Chun is a 73-year-old female who started noticing progressive nausea and vomiting in November of 2023. Patient started after eating her symptoms secondary to her medication for recurrent yeast infections. However patient started noticing that there was more progressive nausea with impaired appetite and weight loss hence presented to emergency department for further management. During her evaluation patient had abnormal imaging that is a density at the head of the pancreas with prominent pancreatic duct and biliary duct system and tumor markers with CA 19.9 was elevated which was suspicious for malignancy. Hence patient was referred to GI for further evaluation and management during which biopsies were done which was consistent for adenocarcinoma of the pancreas. MRI with MRCP on 11/16/2023 revealed 2.5 cm, solid mass in the pancreatic head with restricted diffusion. no retroperitoneal lymphadenopathy. Hence, patient was recommended to undergo neoadjuvant chemotherapy followed by possible surgery. Patient underwent 6 cycles of FOLFIRINOX and has post treatment break secondary to profound dehydration and weight loss and prefers to not receive any chemotherapy. and patient had a CT scan of the abdomen which revealed minimal response to the treatment and hence was referred to be evaluated for possible concurrent chemoradiation versus radiation alone. Fraction: Fx 2700cGy/5500 cGy With had excessive very pleasant lady who has been having issues with her bloating. Patient seems of the abdominal girth as increased associated with on and off loose stools. Patient had some nausea and threw up last night and was taking Imodium several days prior for her loose stools. Continues to have light colored urine and stools appears to be within normal limits. Patient seems to think that she is bloated in the abdomen however seems a little bit better since yesterday. H&P - Exam General: Patient seems to be more paler, well oriented x3, cooperative with good comprehension levels. Based on her examination patient continues to have some fullness in her abdomen and has increased weight from 112 lb to 119 lb for last 2 weeks. Continues to have impaired appetite. Vital Signs: Vital Signs - 24 hr 05/27/24 09:38 Temperature 37.4 C Pulse Rate 99 Respiratory Rate 20 Blood Pressure 133/65 Pulse Oximetry 99 Exam Abdomen: abdomen soft, distended and other (Bowel sounds intact. No abdominal tenderness. unable to evaluate hepatosplenomegaly) Lab Results: Laboratory Last Values Sodium 138 mmol/L (137-145) 05/07/24 10:00 Potassium 3.4 mmol/L (3.4-5.0) 05/07/24 10:00 Chloride 101 mmol/L (98-107) 05/07/24 10:00 Carbon Dioxide 28 mmol/L (22-30) 05/07/24 10:00 Anion Gap 9 mmol/L (4-12) 05/07/24 10:00 BUN 9 mg/dL (7-17) 05/07/24 10:00 Creatinine 0.44 mg/dL (0.7-1.0) L 05/07/24 10:00 Estim Creat Clear Calc Not Reportable 05/07/24 10:00 Estimated GFR > 60 (59-) 05/07/24 10:00 Glucose 203 mg/dL (65-110) H 05/07/24 10:00 Calcium 9.3 mg/dL (8.4-10.2) 05/07/24 10:00 Total Bilirubin 7.8 mg/dL (0.2-1.3) H 05/07/24 10:00 AST 203 U/L (14-36) H 05/07/24 10:00 ALT 216 U/L (6-35) H 05/07/24 10:00 Alkaline Phosphatase 1011 U/L (38-126) H 05/07/24 10:00 Total Protein 7.0 g/dL (6.3-8.2) 05/07/24 10:00 Albumin 4.1 g/dL (3.5-5.1) 05/07/24 10:00 CA 19-9 Antigen 1684 U/mL (<34) H 05/07/24 10:00 Assessment/Plan Assessment Assessment: Our cone beam CT image three views revealed that patient continues to have some discrepancy in our treatment area especially when it comes to anteroposterior measurements, suspicious for ascites versus benign abdominal distension. Plan Plan: Patient was recommended for lab work and also CT scan of the abdomen and pelvis to rule out ascites continues to be treated tomorrow and re-evaluate further for further management based on images
--- NOTE | 2024-06-01 12:55 | WPDRADONCOTV ---
On Treatment Visit Date/Time of Treatment Date/Time: 06/01/24 12:55 H&P - Exam Lab Results: Laboratory Last Values Sodium 138 mmol/L (137-145) 05/07/24 10:00 Potassium 3.4 mmol/L (3.4-5.0) 05/07/24 10:00 Chloride 101 mmol/L (98-107) 05/07/24 10:00 Carbon Dioxide 28 mmol/L (22-30) 05/07/24 10:00 Anion Gap 9 mmol/L (4-12) 05/07/24 10:00 BUN 9 mg/dL (7-17) 05/07/24 10:00 Creatinine 0.44 mg/dL (0.7-1.0) L 05/07/24 10:00 Estim Creat Clear Calc Not Reportable 05/07/24 10:00 Estimated GFR > 60 (59-) 05/07/24 10:00 Glucose 203 mg/dL (65-110) H 05/07/24 10:00 Calcium 9.3 mg/dL (8.4-10.2) 05/07/24 10:00 Total Bilirubin 7.8 mg/dL (0.2-1.3) H 05/07/24 10:00 AST 203 U/L (14-36) H 05/07/24 10:00 ALT 216 U/L (6-35) H 05/07/24 10:00 Alkaline Phosphatase 1011 U/L (38-126) H 05/07/24 10:00 Total Protein 7.0 g/dL (6.3-8.2) 05/07/24 10:00 Albumin 4.1 g/dL (3.5-5.1) 05/07/24 10:00 CA 19-9 Antigen 1684 U/mL (<34) H 05/07/24 10:00 Assessment/Plan Plan Plan: Patient is here to receive her external beam radiation today. And has been having being nauseous and threw up once last night. Meantime, I was called in at the treatment machine as her abdominal girth had been increased since yesterday suspicious for reaccumulation of her ascites fluid. Hence patient was brought into the room and discussed about the recent scan results and probably reaccumulation of her ascites fluid. I explained to them about restrictions in treating, due to fluctuating external contour changes and at this time if the ascitic fluid comes back positive, patient would be re-staged as metastatic pancreatic adenocarcinoma and other treatment would be considered palliative treatments. Hence patient was recommended to withhold her treatments and be reassessed by medical oncologist for further management.
--- NOTE | 2024-06-03 09:07 | WPDRADIATPRO ---
Radiation Procedure Note Date/Time Date/Time: 06/03/24 09:07 Summary Summary: INITIAL CT SIMULATION PROCEDURE PURPOSE: The patient is undergoing a virtual CT simulation for external beam radiation treatment planning. TREATMENT SITE(S):pancreas and regional area NUMBER OF AREAS OR CAPPS: One treatment area was simulated today NUMBER OF PORTS: TBD during planning process EQUIPMENT USED: Simulation was performed on the department?s dedicated CT simulator. IMMOBILIZATION: An alpha cradle device was fabricated to immobilize the patient?s body in treatment position. CONTRAST MEDIA: The use of contrast was not required for this simulation. EXTERNAL MARKERS: No external markers were used. TATTOOS: Positioning tattoos were applied to the patient?s skin. BLOCKING: Custom blocks of complex design will be drawn to cover the target volume within the treatment field(s). FIELD MODIFIERS: A wedge, compensating filter, multiple MLC control points, and/or DMLC may be required to improve dose homogeneity. The decision whether to use these devices will occur during the treatment planning process. ISODOSE PLAN: A 3D/ IMRT treatment plan will be performed SCHEDULING Prior to delivering the first radiation fraction, a simulation will be performed to verify the isocenter location and block design. IMAGING QA: Weekly electronic portal images will be obtained.
== END 2024-06-25 08:46 ==
LOC: AMCRADONC 09:30
PROVIDERS: PCP Family Medicine; Visit Provider Radiology Radiation Oncology
DX: Z51.0 Encounter for antineoplastic radiation therapy (principal); C25.0 Malignant neoplasm of head of pancreas; R11.2 Nausea with vomiting, unspecified; E11.9 Type 2 diabetes mellitus without complications; R63.4 Abnormal weight loss; R14.0 Abdominal distension (gaseous); R63.0 Anorexia; Z92.21 Personal history of antineoplastic chemotherapy
CPT/HCPCS: 36415; 74177; 77280; 77290; 77334; 77336; 77386; 80053; 86301; 99212; G0463; Q9967

== ENCOUNTER 2024-08-10 16:29 | Emergency (ER) | payer OTHER, SELFPAY ==
[2024-08-10] VITALS (11 sets, daily range): BP systolic 78–154; BP diastolic 48–125; PULSE 113–146; RESP 10–25; TEMP 36.4; O2SAT 98–100
--- NOTE | ~2024-08-10 | XR_ITS ---
XR chest 1V portable Ordering provider: Maxi Holloway MD History: 74 years Female with . SOB . Comparison: None. FINDINGS: MEDIASTINUM: The cardiac silhouette is not enlarged. Right Port-A-Cath with the tip overlying superio r vena cava. LUNGS: No infiltrates, effusions or pneumothorax. OTHER: No free air under the diaphragm. IMPRESSION: No acute cardiopulmonary pathology. Reviewed, dictated and finalized at location A.
--- NOTE | 2024-08-10 16:54 | ED_ITS ---
HPI - Abdominal Pain General Chief Complaint: Abdominal Pain Stated Complaint: abd pain/body pain Time Seen by Provider: 08/10/24 16:47 History of Present Illness HPI narrative: Pt has stage 4 pancreatic cancer and is taking norco at home but it is not controlling her pain this afternoon. Pt is getting a drain placed Friday and then is going on hospice on Friday. they are here for pain control and don't want a CT. Pt is not vomiting. Related Data Allergies Allergy/AdvReac Type Severity Reaction Status Date / Time No Known Allergies Allergy Unknown Unverified 12/04/18 09:09 Review of Systems 2 Review of Systems: All systems reviewed & are unremarkable except as noted in HPI and below PMFSH Past Medical History Medical History (Updated 08/10/24 @ 18:43 by Igor Tran III, DO) Diabetes Nephrolithiasis Social History Social History Smoking status: Never smoker Spiritual care concerns: No Exam 2 Const: General: healthy appearing and no acute distress Nutritional Appearance: well nourished Orientation/consciousness: patient oriented x3 Limitations: no limitations HENMT: Head: normal to inspection Resp: Effort & Inspection: normal respiratory effort Auscultation: clear to auscultation bilaterally Cardio: Rate: regular rate Rhythm: regular rhythm GI: GI Palp: Yes Tenderness to palpation present (GI) (dissusely tender, distended) Auscultation: normal bowel sounds Skin: General skin exam: normal color Rashes: no rashes Wounds: no wounds Neuro: General: patient oriented x3 and no focal motor deficits Speech: n ormal speech Extrem: General: normal to inspection and no clubbing, cyanosis or edema Psych: Mental Status: mental status grossly normal Affect: normal affect Attitude: cooperative Course Vital Signs Vital signs: Vital Signs Temperature 97.5 F L 08/10/24 16:33 Pulse Rate 129 H 08/10/24 16:33 Respiratory Rate 25 H 08/10/24 16:33 Blood Pressure 124/88 08/10/24 16:33 Pulse Oximetry 100 08/10/24 16:33 Oxygen Delivery Room Air 08/10/24 16:33 Temperature 97.5 F L 08/10/24 16:33 Pulse Rate 142 H 08/10/24 18:23 Respiratory Rate 10 L 08/10/24 18:23 Blood Pressure 141/92 H 08/10/24 18:23 Pulse Oximetry 98 08/10/24 18:23 Oxygen Delivery Room Air 08/10/24 16:33 MDM - Abdominal Pain MDM Narrative Medical decision making narrative: will get some basic labs and treat pain with dilaudid and some zofran for nausea. Pt has elevated lactate and 18 k wbc sodium of 123 potassium of 5.1. and patient expressed before medicine that they just wanted to keep her comfortable and due not want to treat the abnormalities. just wants her comfortable. Pt resting but difficult to arouse right now. Will wait for a bit and send home on percocet. will contact social servece here to see if we can expedite hospice. pt can't get drain if on hospice so will wait for her to wake up a bit and send home per pt a family request. Will trun over to Dr Holloway at 1900. Lab Data 08/10/24 17:26 08/10/24 17:26 Labs: Lab Results 08/10/24 Range/Units 17:26 WBC 18.1 H (4.5-10.0) K/mm3 RBC 4.05 L (4.2-5.4) M/mm3 Hgb 12.6 D (12.0-15.0) g/dL Hct 40.1 (37.0-47.0) % MCV 99.0 (80-100) fl MCH 31.1 (26-34) pg MCHC 31.4 L (32-36) g/dl RDW 20.4 H (11.5-14.5) % Plt Count 145 L (150-375) k/mm3 MPV 10.7 H (7.4-10.4) fl Immature Gran % (Auto) 0.7 H (0-0.5) % Neut % (Auto) 94.9 H (45.5-73.1) % Lymph % (Auto) 2.8 L (18.3-44.2) % [place] % (Auto) 1.3 L (2.6-8.5) % Eos % (Auto) 0.0 (0-4.4) % Baso % (Auto) 0.3 (0.2-1.2) % Lymph # (Auto) 0.50 L (0.9-3.2) K/mm3 [place] # (Auto) 0.2 (0.1-0.6) K/mm3 Eos # (Auto) 0.0 (0-0.3) K/mm3 Baso # (Auto) 0.1 (0.0-0.1) K/mm3 Abs Immat Gran (auto) 0.13 H (0.00-0.031) K/mm3 Absolute Neuts (auto) 17.1 H (1.3-6.7) K/mm3 Absolute Nucleated RBC 0.030 H (0.0-0.012) K/mm3 Band Neutrophils % Not Reportable Nucleated RBC % 0.2 (0.0-0.2) % Platelet Estimate Adequate (Adequate) Ovalocytes 1+ Schistocytes None seen Sodium 123 L (137-145) mmol/L Potassium 5.1 H (3.4-5.0) mmol/L Chloride 94 L (98-107) mmol/L Carbon Dioxide 8 L (22-30) mmol/L Anion Gap 21 H (4-12) mmol/L BUN 45 H D (7-17) mg/dL Creatinine 1.00 (0.7-1.0) mg/dL Estim Creat Clear Calc 29 ml/min Estimated GFR 54 L (59 - ) Glucose 332 H (65-110) mg/dL Lactic Acid 6.3 H* (0.7-2.0) mmol/L Calcium 8.8 (8.4-10.2) mg/dL Total Bilirubin 0.9 (0.2-1.3) mg/dL AST 54 H (14-36) U/L ALT 30 (6-35) U/L Alkaline Phosphatase Pending Total Protein 5.3 L (6.3-8.2) g/dL Albumin 2.3 L (3.5-5.1) g/dL Lipase Pending Discharge Plan Discharge Clinical Impression: Pancreatic cancer, Acute hyponatremia, Acute hyperkalemia Patient Disposition: Home Condition: Terminal Instructions: Antibiotic Form, Pancreatic Cancer (DC), Ascites (ED) Patient Language: Malagasy Prescriptions: New oxycodone-acetaminophen [Percocet] 5-325 mg tablet 1 tablet PO Q6H PRN (Reason: pain) Qty: 14 0RF No Action lorazepam [Ativan] 0.5 mg tablet 0.5 mg PO DAILY MDD .5mg PRN (Reason: anxiety) Qty: 3 0RF Rx Instructions: 0.5 mg one hour prior to scans ondansetron 4 mg tablet,disintegrating 4 mg PO Q8H PRN (Reason: nausea and vomiting) Qty: 10 0RF ibuprofen 400 mg tablet 400 mg PO TID PRN (Reason: pain) Qty: 30 0RF pantoprazole 40 mg tablet,delayed release (DR/EC) 40 mg PO BID Qty: 180 4RF Follow-up/Referrals: Maldonado,Reginald Torres MD [Primary Care Provider] -
[2024-08-10] MEDS: HYDROmorphone HCL INJ (*CRX) 2 MG/ML VIAL 1 MG IV PUSH (17:01)
[2024-08-10] MEDS: ONDANSETRON INJ 4 MG/2 ML VIAL IV PUSH (17:01)
--- NOTE | 2024-08-10 17:19 | PC.NURSE ---
unsuccessful in attempt to draw patient labs. Sonal COLUNGA and Gal RODRIGUEZ aware. Kelli COLUNGA to attempt to get labs from patient
--- OUTSIDE RECORDS SUMMARY | 2024-08-10 17:27 | XMS_ITS | Encounter Summary ---
Author Organization [facility] Facility Care Team Providers Care Metal Treater Name Role Phone Jyoti Edge Primary Care Provider [phone]- [phone] Encounter Details Date Type Department Care Team (Latest Contact Info) Description 04/10/2016 Orders Only [facility] CLINCONV Provider, MD Arely [address] [place] [address] Social History Tobacco Use Types Packs/Day Years Used Date Smoking Tobacco: Never Assessed Comments Unknown Sex and Gender Information Value Date Recorded Sex Assigned at Not on file Legal Sex Female 5:48 PM WIRELESS FIELD TECHNICIAN Gender Identity Not on file Sexual Orientation Not on file documented as of this encounter Plan of Treatment Not on file documented as of this encounter Procedures Procedure Name Priority Date/Time Associated Diagnosis Comments COLONOSCOPY - SCAN 04/10/2016 12 :00 AM WIRELESS FIELD TECHNICIAN documented in this encounter Results * COLONOSCOPY - SCAN (04/10/2016 12:00 AM WIRELESS FIELD TECHNICIAN) Narrative 04/10/2016 12:00 AM WIRELESS FIELD TECHNICIAN Ordered by an unspecified provider. Historical Provider Final Res ult documented in this encounter Visit Diagnoses Not on filedocumented in this encounter Care Teams Metal Treater Relationship Specialty Start Date End Date Jyoti Edge PA [address] [place], [place] [phone] PCP - General Internal Medicine 06/17/18 documented as of this encounter
--- OUTSIDE RECORDS SUMMARY | 2024-08-10 17:27 | XMS_ITS | Encounter Summary ---
Author Organization [facility] Facility Care Team Providers Care Mannequin Decorator Name Role Phone Jyoti Edge Primary Care Provider [phone]- [phone] Encounter Details Date Type Department Care Team (Latest Contact Info) Description 05/08/2015 Orders Only [facility] CLINCONV Provider, MD Arely [address] [place] [address] Social History Tobacco Use Types Packs/Day Years Used Date Smoking Tobacco: Never Assessed Comments Unknown Sex and Gender Information Value Date Recorded Sex Assigned at Not on file Legal Sex Female 5:48 PM ACUPRESSURE THERAPIST Gender Identity Not on file Sexual Orientation Not on file documented as of this encounter Plan of Treatment Not on file documented as of this encounter Procedures Procedure Name Priority Date/Time Associated Diagnosis Comments SCAN - LABS 05/08/2015 12:00 AM ACUPRESSURE THERAPIST documented in this encounter Results * SCAN - LABS (05/08/2015 12:00 AM ACUPRESSURE THERAPIST) Narrative 05/08/2015 12:00 AM ACUPRESSURE THERAPIST Ordered by an unspecified provider. us Historical Provider Final Res ult documented in this encounter Visit Diagnoses Not on filedocumented in this encounter Care Teams Mannequin Decorator Relationship Specialty Start Date End Date Jyoti Edge PA [address] [place], [place] [phone] PCP - General Internal Medicine 06/17/18 documented as of this encounter
--- OUTSIDE RECORDS SUMMARY | 2024-08-10 17:27 | XMS_ITS | Encounter Summary ---
Author Organization [facility] Address [address] [place] [address] Care Team Providers Care Simulation Tech Name Role Phone Unavailable Primary Care Provider Unavailabl e Encounter Details Date Type Department Care Team (Late st Contact Info) Description 08/10/2024 External Device Data ST[place] ABSTRACTION Provider, Abstract NO ADDRESS ON FILE Social History Tobacco Use Types Packs/Day Years Used Date Smoking Tobacco: Never Smokeless Tobacco: Never Alcohol Use Standard Drinks/Week Comments Not Currently 0 (1 standard drink = 0.6 oz pur e alcohol) Feeling Safe Answer Date Recorded Are you in a relationship wi th someone who hurts you emotionally and/or physically? No 05/29/2024 Food Insecurity Answer Date Recorded Patient needs follow up regardin 06/24/2024 Transportation Needs Answer Date Record ed Patient needs follow up regardin 06/24/2024 Housing Stability Answer Date Recorded Social/Environmental Concerns No concerns Utility Needs Answer Date Recorded Patient needs follow up regardin 06/24/2024 Comments No Sex and Gender Information Value Date Recorded Sex Assigned at Not on file Legal Sex Female 8:51 AM CDT Gender Identity Not on file Sexual Orientation Not on file documented as of this encounter Plan of Treatment Upcoming Encounters Date Type Department Care Team (Latest Contact Info) Description 08/13/2024 12:30 PM CDT Hospital Encounter [facility] Interventional Radiology [address] [place] [address] Yu Wise DO [address] [place] [address] Hayden Read Prepost Joseline [facility] 08/24/2024 2:00 PM CDT Office Visit [facility] [address] [place] [phone] Yu Wise DO [address] [place] [phone] 03/18/2025 1:15 PM GLOBAL MARKETING OPERATIONS MANAGER Office Visit [facility] Urology at the [facility] [address] [place] [address] Marisela Moore MD [address] [place] [address] documented as of this encounter Visit Diagnoses Not on filedocumented in this encounter Additional Health Concerns Assessment Noted Time PHQ-9 Depression Total Score: 2 07/14/19 25 2:00 PM CDT documented as of this encounter
--- OUTSIDE RECORDS SUMMARY | 2024-08-10 17:27 | XMS_ITS | Encounter Summary ---
Author Organization [facility] Address [address] [place] [address] Care Team Providers Care Subsurface Augmentee Operator Name Role Phone Unavailable Primary Care Provider Unavailabl e Reason for Visit * Reason Onset Date Comments Medication Refill 08/10/2024 Encounter Details Date Type Department Care Team (Late st Contact Info) Description 08/10/2024 Refill [facility] Palliative Care [facility] [address] [place] [address] Héctor Steiner MD [address] [address] Pancreatic adenocarcinoma (CMS/HCC) Social History Tobacco Use Types Packs/Day Years [...] encounter Miscellaneous Notes * Telephone Encounter - Louise Christianson LPN - 08/10/2024 11:34 AM CDT Requested Prescriptions Pending Prescriptions Disp Refills hydrocodone 5 mg-acetaminophen 325 mg tablet (NORCO) 180 Tablet 0 Sig: Take 0.5-1 Tablets by mouth every 4 hours as needed for Pain, Moderate. Max Daily Amount: 6 Tablets documented in this encounter Plan of Treatment Upcoming Encounters Date Type Department Care Team (Latest Contact Info) Description 08/13/2024 12:30 PM CDT Hospital Encounter [facility] Interventional Radiology [address] [facility] [address] [place] [address] Yu Wise, [address] [place] [address] [facility] 08/24/2024 2:00 PM CDT Office Visit [facility] Palliative Care [facility] [address] [place] [address] Yu Wise, [address] [place] [address] 03/18/2025 1:15 PM VP TALENT MANAGEMENT Office Visit [facility] Urology at the [facility] [address] [place] [address] Marisela Moore MD [address] [place] [address] documented as of this encounter Visit Diagnoses Diagnosis Pancreatic adenocarcinoma (CMS/HCC) Malignant neoplasm of pancreas, part unspecified documented in this encounter Additional Health Concerns Assessment Noted Time PHQ-9 Depression Total Score: 2 07/14/19 25 2:00 PM CDT documented as of this encounter
--- OUTSIDE RECORDS SUMMARY | 2024-08-10 17:27 | XMS_ITS ---
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 Bloating 05/28/2024 Pancreatic adenocarcinoma 12/04/2023 Dysuria 11/21/2023 Protein-calorie malnutrition, severe 11/17/2023 Type 2 diabetes mellitus, wi thout long-term current use of insulin 11/15/2023 Hyperlipidemia 11/15/2023 GERD (gastroesophageal reflux disease) Pancreatic mass 11/15/2023 Facial skin lesion 05/03/2023 Eustachian tube disorder 04/05/2019 Osteopenia of spine 06/17/2018 Vitamin D deficiency 06/17/2018 Current Treatment and Therapy Plans OP ONC PANCREAS_GEMCITABINE_PACLITAXEL ALBUMIN-BOUND DAYS 1,8,15_EVERY 28 DAYS* Plan Start Date:06/07/2024 Plan Provider:Zehra Smith MD Linked Problems Pancreatic adenocarcinoma (C MS/HCC) Treatment Medications Current Day (Day 8 , Cycle 1 - Planned for 06/25/2024) Next Day (Day 15, Cycle 1 - Planned for 07/02/2024) gemcitabine (GEMZAR) IVPBPACLitaxel-protein bound (ABRAXANE) IVPB gemcitabine (GEMZAR) 1,400 mg in sodium chloride 0.9 % 250 mL IVPBPACLitaxel protein-bound (ABRAXANE) 150 mg in sodium chloride 0.9 % 30 mL IVPB gemcitabine (GEMZAR) 1,400 mg in sodium chloride 0.9 % 250 mL IVPBPACLitaxel protein-bound (ABRAXANE) 150 mg in sodium chloride 0.9 % 30 mL IVPB Past Treatment and Therapy Plans ONCOLOGY TREATMENT Plan Name Start Date Discontinue Date Treatment Medications Discontinue Reason Plan Provider Cycles OP ONC PANCREA S_mFOLF IRINOX_ EVERY 14 DAYS 4 03/25/2024 fluorouracil (5-FU) continuous infusionirinotecan (CAMPTOSAR) IVPBleucovorin (WELLCOVORIN) IVPBoxaliplatin (ELOXATIN) IVPB Progression Zehra Smith MD 6 of 13 cycles started Lifetime Dose Tracking * Chemical Lifetime Dose Automatic Entry Manual Entr y Effective Dose 42.05 mSv 42.05 mSv 0 mSv Total DLP 2,611.47 DLP 2,611.47 DLP 0 DLP CTDIvol Max 36.64 mGy 36.64 mGy 0 mGy CTDIvol Min 3.95 mGy 3.95 mGy 0 mGy
--- OUTSIDE RECORDS SUMMARY | 2024-08-10 17:28 | XMS_ITS | Encounter Summary ---
Author Organization [facility] Address [address] [place] [address] Care Team Providers Care Afterschool Babysitter Name Role Phone Unavailable Primary Care Provider Unavailabl e Encounter Details Date Type Department Care Team (Late st Contact Info) Description 11/14/2022 Lab Requisition [facility] Lab [address] [facility] [place] [phone] Kay Segovia DO [address] [place] [address] Social History Tobacco Use Types Packs/Day Years Used Date Smoking Tobacco: Never Assessed Comments Unknown Sex and Gender Information Value Date Recorded Sex Assigned at Not on file Legal Sex Female 4:14 AM CDT Gender Identity Not on file Sexual Orientation Not on file documented as of this encounter Plan of Treatment Not on file documented as of this encounter Procedures Procedure Name Priority Date/Time Associated Diagnosis Comments DERMATOPATHOLOGY Routine 11/14/2022 10:2 1 AM CDT documented in this encounter Results * DERMATOPATHOLOGY (11/14/2022 10:21 AM CDT) Case Report Dermatopathology Report Case: [id number] Authorizing Provider: Kay Segovia DO Collected: 11/14/2022 10:21 AM Ordering Location: [facility] Received: 11/15/2022 08:05 AM Pathologist: Princess Charles MD Specimen: Skin, right forearm 3 1:32 PM CDT DERMATOPATHOLOGY LABORATORY Final Diagnosis Specimen A. SKIN, right forearm: LICHEN PLANUS-LIKE KERATOSIS (BENIGN LICHENOID KERATOSIS) (L82.1) 3 1:32 PM CDT DERMATOPATHOLOGY LABORATORY at 1332 CDT Clinical History LPLK. R/O BCC 3 1:32 [...] characteristic determined by the Dermatopathology Laboratory at [facility], directed by Dr. Swati Pozo. These tests need not be, and therefore are not, approved by the [place] Food and Drug Administration. The tests are used for clinical purposes. Billing Codes Specimen Charges Stain Charges 29401 1 3 1:32 PM CDT DERMATOPATHOLOGY LABORATORY Embedded Images 3 1:32 PM CDT DERMATOPATHOLOGY LABORATORY Pathology/Cytolo gy TISSUE SPECIMEN FROM SKIN / Unknown 11/14/2022 10:21 AM CDT 11/15/2022 8:05 AM CDT Kay Segovia DO LAB - PATHOLOGY/CYTOLOGY ORDERABLES Final Result DERMATOPATHOLOGY LABORATORY [facility] - Department of Dermatology [address], [address] [phone] documented in this encounter Visit Diagnoses Not on filedocumented in this encounter
--- OUTSIDE RECORDS SUMMARY | 2024-08-10 17:28 | XMS_ITS | Clinical Summary ---
Author Organization [facility] Address [address] [place] [address] Care Team Providers Care Paper Folder Name Role Phone Jyoti Edge Primary Care Provider [phone] Allergies Active Allergy Reactions Criticality Noted Date Comments Penicillin V Potassium Unknown 06/18/2018 ? as child Medications multivitamin capsule Take 1 capsule by mouth daily Active blood-glucose meter misc Use daily for monitoring of diabetes. 1 each 4 Active blood glucose diagnostic (glucose blood) strip Check daily 100 each 11 4 09/08/19 25 Active lancets misc Check glucose daily 100 each 11 4 Active clotrimazole-bet amethasone (LOTRISONE) creamIndications :Vaginal irritation Apply topically 2 (two) times a day 45 g 4 Active rosuvastatin (CRESTOR) 10 mg tablet Take 1 tablet (10 mg total) by mouth daily 90 tablet 2 4 Active Additional Information Patient not taking.Reported on 06/21/[address] (PROTONIX) 40 mg EC tablet TAKE 1 TABLET BY MOUTH TWICE A DAY 180 tablet 2 4 Active fluticasone propionate (FLONASE) 50 mcg/actuation nasal spray SPRAY 2 SPRAYS INTO EACH NOSTRIL EVERY DAY 48 mL 2 5 Active mirtazapine (REMERON) 7.5 mg tabletIndication s:Appetite loss,Episode of recurrent major depressive disorder, unspecified depression episode severity TAKE 1 TABLET BY MOUTH EVERY DAY NIGHTLY 90 tablet 1 5 Active ondansetron (ZOFRAN) 8 mg tablet Take 1 tablet (8 mg total) by mouth every 8 (eight) hours as needed for nausea or vomiting 5 Active Active Problems Problem Noted Date Diagnosed Date Frailty 07/04/2024 Assessment & Plan (07/04/2024 10:28 AM CDT): Patient diagnosed with metastatic pancreatic cancer with spread to the liver. Currently on chemo with paclitaxel and gemcitabine. 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 LFTs reflect metastatic disease. Patient with frailty. - Try drinking Ensure to maintain weight - Ondanestron for nausea - Keep your appointments with oncology Dysuria 04/18/2024 Assessment & Plan (04/18/2024 4:04 PM BILL HIKER): Check urine and culture today Gross hematuria 04/18/2024 Assessment & Plan (04/18/2024 4:01 PM BILL HIKER): Patient was started on Bactrim. Has not completely it it yet it looks as though it is sensitive. Had a cystoscope by [facility] which was essentially normal. Recommend to [...] 12/14/2023 Assessment & Plan (04/18/2024 4:01 PM BILL HIKER): Continue Remeron 7.5 for depression as well as helping with appetite Assessment & Plan (04/04/2024 8:39 PM BILL HIKER): Patient's appetite is down and mood is [...] 12/14/2023 Assessment & Plan (04/04/2024 8:39 PM BILL HIKER): Patient's appetite is down and mood is [...] of head of pancreas Assessment & Plan (06/21/2024 5:45 PM CDT): Patient diagnosed with metastatic pancreatic cancer with spread to the liver. Currently on chemo with paclitaxel and gemcitabine. 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 LFTs reflect metastatic disease. - Try drinking Ensure to maintain weight - Ondanestron for nausea - Keep your appointments with oncology Assessment & Plan (04/18/2024 4:02 PM BILL HIKER): Continue per [facility] for pancreatic cancer management. She is awaiting lab results to determine next step in her treatment plan Assessment & Plan (04/04/2024 8:36 PM BILL HIKER): Newer diagnosis of pancreatic cancer. Continue to follow with [facility] as they are managing her currently. Assessment & Plan (12/14/2023 12:16 AM CDT): New diagnosis of pancreatic cancer Continue per the [facility] group 0 coordinating her care. Will await recommendations Controlled type 2 diabetes maya rain without complication, without long-term current use of insulin 12/14/2023 Assessment & Plan (06/21/2024 5:48 PM CDT): Last A1c is 6.0. This is an acceptable value for her as we want to avoid hypoglycemia. - Will have to get your A1c checked every 3-6 months - Reasonable A1c of <7 Assessment & Plan (04/18/2024 4:03 PM BILL HIKER): A1c in the office today was 6.0. This is without any medication. I discussed medication with patient but currently with all of the other treatment she is undergoing I recommend continuing diet management. Will continue to monitor closely and if she has random sugars at home that are running over 300 she is to call. Assessment & Plan (04/04/2024 8:37 PM BILL HIKER): Stressed importance of continued A1c control to minimize the long term care pharmacist effects of diabetes. Bring accuchecks to office [...] of continued A1c control to minimize the snf effects of diabetes. Bring accuchecks to office [...] BMI 20.0-20.9, adult 10/14/2023 Assessment & Plan (06/21/2024 5:47 PM CDT): Continue healthy lifestyle Assessment & Plan (04/18/2024 4:03 PM BILL HIKER): Patient continues with weight loss. She has known pancreatic cancer. Will see if the Remeron begins to perk her appetite. Encouraged increased protein and overall calories. Assessment & Plan (03/26/2024 9:14 AM BILL HIKER): Weight/BMI is in healthy range. Continue healthy [...] 10/20/2018 Assessment & Plan (05/03/2022 1:32 PM BILL HIKER): Check DEXA Assessment & Plan (01/17/2020 12:01 PM BILL HIKER): Check DXA Assessment & Plan (10/20/2018 10:18 PM CDT): Check DXA Vitamin D deficiency 06/17/2018 Assessment & Plan (12/14/2023 12:16 AM CDT): Supplement Assessment & Plan (05/03/2023 11:12 PM BILL HIKER): Supplement vitamin-D Assessment & Plan (10/30/2022 8:40 AM CDT): Supplement Assessment & Plan (05/03/2022 1:31 PM BILL HIKER): Supplement Assessment & Plan (11/05/2021 9:16 PM CDT): Supplement Assessment & Plan (04/27/2021 9:33 AM BILL HIKER): Continue supplementation Assessment & Plan (07/17/2020 5:08 PM CDT): supplement Assessment & Plan (01/17/2020 9:32 AM BILL HIKER): supplement Assessment & Plan (10/20/2018 10:16 PM CDT): Supplement Gastroesophageal reflux disease without esophagi tis 06/17/2018 Assessment & Plan (12/14/2023 12:16 AM CDT): Continue pantoprazole p.r.n. Assessment & Plan (08/24/2023 6:23 PM CDT): Continue PPI Assessment & Plan (05/03/2023 11:12 PM BILL HIKER): Continue pantoprazole. Could try doubling up if [...] GI. Assessment & Plan (05/03/2022 1:31 PM BILL HIKER): Continue PPI p.r.n.. Has breakthrough symptoms if she misses a day of dosing. Assessment & Plan (11/05/2021 9:16 PM CDT): Continue PPI patient try to taper and still has breakthrough symptoms Assessment & Plan (04/27/2021 9:33 AM BILL HIKER): Continue pantoprazole. Try to taper dosing had breakthrough symptoms so will continue with daily dosing. Assessment & Plan (12/18/2020 9:14 AM CDT): Continue Protonix. Assessment & Plan (07/17/2020 5:09 PM CDT): Continue PPI Assessment & Plan (01/17/2020 9:31 AM BILL HIKER): Stable. Using protonix 40mg bid. Recommend trying [...] diabetes mellitus with hyperlipidemia Assessment & Plan (06/21/2024 5:49 PM CDT): Last lipid panel done in 05/2024. Cholesterol elevated. Not currently on statin. Eat a diet low in saturated fat, trans fats and cholesterol Add Ensure to your diet to maintain protein intake Assessment & Plan (04/18/2024 4:01 PM BILL HIKER): Patient is past due for labs. Assessment & Plan (04/04/2024 8:38 PM BILL HIKER): Encouraged patient to follow low fat/low chol [...] of continued A1c control to minimize the snf effects of diabetes. Bring accuchecks to office [...] of continued A1c control to minimize the snf effects of diabetes. Bring accuchecks to office [...] of continued A1c control to minimize the snf effects of diabetes. Bring accuchecks to office [...] Discussed with patient at length diabetes, pathogenesis, long term care pharmacist sequela, end organ damage, diet/exercise/weight loss, and [...] feet on a regular basis to avoid snf problems. Offered referral to meat boner and slicer. Decided together to start Farxiga 10mg one daily. Reviewed risks benefits alternatives side effects and proper use. Recheck CMP in 4-6 weeks. Recheck A1c in 3-4 months. Assessment & Plan (05/03/2023 11:13 PM BILL HIKER): Encouraged patient to follow low fat/low chol [...] Crestor Assessment & Plan (05/03/2022 1:31 PM BILL HIKER): Encouraged patient to follow low fat/low chol [...] Crestor Assessment & Plan (04/27/2021 9:33 AM BILL HIKER): Encouraged patient to follow fat/low chol diet like the Mediterranean diet. Increase good fats in the diet. Increase exercise. Monitor labs as needed. Continue Crestor Assessment & Plan (07/17/2020 7:17 AM CDT): Encouraged patient to follow fat/low chol diet like the Mediterranean diet. Increase good fats in the diet. Increase exercise. Monitor labs as needed. Continue crestor Assessment & Plan (01/17/2020 12:01 PM BILL HIKER): Encouraged patient to follow fat/low chol diet like the Mediterranean diet. Increase good fats in the diet. Increase exercise. Monitor labs as needed. Assessment & Plan (10/20/2018 10:16 PM CDT): Encouraged patient to continue low fat/low chol diet. Continue exercise. Increase good fats in the diet. Monitor labs as needed. Osteopenia of spine 06/17/2018 Assessment & Plan (05/03/2023 11:13 PM BILL HIKER): Continue monitoring DEXA. Will plan to recheck [...] years Assessment & Plan (05/03/2022 1:32 PM BILL HIKER): Continue calcium vitamin-D and exercise. Continue Evista continue to monitor DEXA Assessment & Plan (04/27/2021 9:33 AM BILL HIKER): Tolerating Evista. Continue calcium vitamin-D and exercise. Next bone density will be due in May of 2022 Assessment & Plan (12/18/2020 9:14 AM CDT): Tolerating in [place] without problems. Thinks she may have a [...] blood clots. She is most interested in [place]. She is to start 1 tablet daily [...] 05/03/2023 Assessment & Plan (05/03/2023 11:12 PM BILL HIKER): Patient has a skin tag on the right upper lid. It seems to be growing. Will refer to [facility] for evaluation and probable removal. Positive depression screening 04/29/2023 04/29/2023 Hyperglycemia 04/29/2023 05/03/2023 Medicare annual wellness visit, subsequent 04/29/2023 11/03/2023 Assessment & Plan (05/03/2023 11:13 PM BILL HIKER): Encouraged healthy lifestyle, good nutrition and exercise. [...] 12/14/2023 Assessment & Plan (05/03/2023 11:13 PM BILL HIKER): Mammogram order provided Assessment & Plan (05/03/2022 1:32 PM BILL HIKER): Mammogram order provided Medicare annual wellness visit, subsequent 05/03/2022 10/30/2022 Assessment & Plan (05/03/2022 1:32 PM BILL HIKER): Encouraged healthy lifestyle, good nutrition and exercise. Encouraged Calcium and Vitamin D and weight bearing exercise for bone health. Reviewed immunizations. Reviewed age appropirate screenings. Medicare Wellness Documentation is completed within the chart BMI 24.0-24.9, adult 04/29/2022 023 Assessment & Plan (04/29/2022 8:05 AM BILL HIKER): Weight/BMI is in healthy range. Continue healthy lifestyle. Dysuria 02/03/2022 05/03/2022 Assessment & Plan (02/18/2022 9:14 AM BILL HIKER): Recommend test of cure in 7-10 days Assessment & Plan (02/03/2022 4:52 PM BILL HIKER): Recheck a UA today shows urine that [...] 05/03/2022 Assessment & Plan (02/03/2022 4:54 PM BILL HIKER): Recheck a UA today shows urine that [...] 04/27/202105/02 Assessment & Plan (05/03/2022 1:32 PM BILL HIKER): Patient due for colon cancer screening. Prefers Cologuard. No family history of colon cancer polyps Assessment & Plan (11/05/2021 9:20 PM CDT): Due to repeat colon cancer screening at 11 years. Patient states she received information from the GI and plans to follow-up with him to set the appointment. Assessment & Plan (04/27/2021 9:34 AM BILL HIKER): Due for colon cancer screening. Prefers to follow back up with Dr. juan r Sams 04/27/2021 04/29/2023 Assessment & Plan (10/30/2022 8:42 AM CDT): Probably multifactorial. Check labs and followup to re-evaluate Assessment & Plan (11/05/2021 9:20 PM CDT): Probably multifactorial. Check labs and followup to re-evaluate Assessment & Plan (04/27/2021 9:34 AM BILL HIKER): Probably multifactorial. Check labs and followup to re-evaluate Medicare annual wellness visit, subsequent 04/27/2021 11/05/2021 Assessment & Plan (04/27/2021 9:35 AM BILL HIKER): Encouraged healthy lifestyle, good nutrition and exercise. Encouraged Calcium and Vitamin D and weight bearing exercise for bone health. Reviewed immunizations. Reviewed age appropirate screenings. Medicare Wellness Documentation is completed within the chart BMI 24.0-24.9, adult 04/25/2021 024 Assessment & Plan (08/14/2023 7:53 AM CDT): Weight/BMI is in healthy range. Continue healthy lifestyle to maintain. Assessment & Plan (05/03/2023 11:13 PM BILL HIKER): Weight/BMI is in healthy range. Continue healthy lifestyle to maintain. Assessment & Plan (11/05/2021 9:20 PM CDT): Weight/BMI is in healthy range. Continue healthy lifestyle to maintain. Weight/BMI is in healthy range. Continue healthy lifestyle to maintain. Assessment & Plan (04/25/2021 8:13 AM BILL HIKER): Weight/BMI is in healthy range. Continue healthy [...] diabetes. Assessment & Plan (04/27/2021 9:34 AM BILL HIKER): Pre-diabetes/hyperglycemia is a precursor to Dm. Stressed [...] diabetes. Assessment & Plan (01/17/2020 12:03 PM BILL HIKER): Recheck labs Other fatigue 01/17/2020 07/17/2020 Assessment & Plan (01/17/2020 12:03 PM BILL HIKER): Probably multifactorial. Check labs and followup to re-evaluate Medicare annual wellness visit, subsequent 01/16/2020 07/17/2020 Assessment & Plan (01/17/2020 12:02 PM BILL HIKER): Encouraged healthy lifestyle, good nutrition and exercise. Encouraged Calcium and Vitamin D and weight bearing exercise for bone health. Reviewed immunizations. Reviewed age appropirate screenings. Medicare Wellness Documentation is completed within the chart Wart 04/09/2019 12/14/2023 Assessment & Plan (04/09/2019 12:05 PM BILL HIKER): Pt reassure this is a benign lesion. Eustachian tube disorder 04/05/2019 Assessment & Plan (04/05/2019 11:19 PM BILL HIKER): Start antihistamine, Mucinex and Steroid nasal spray. [...] aware. Assessment & Plan (04/27/2021 9:34 AM BILL HIKER): Awaiting evaluation by Dermatology. Has appointment in May Assessment & Plan (12/18/2020 9:17 AM CDT): Patient is noting skin lesions changing her face and back. Will refer to Derm. Assessment & Plan (04/05/2019 11:21 PM BILL HIKER): Reviewed procedure with patient including process, possible [...] 021 Assessment & Plan (01/17/2020 12:02 PM BILL HIKER): Weight/BMI is in healthy range. Continue healthy lifestyle to maintain. Assessment & Plan (04/05/2019 10:47 AM BILL HIKER): Weight/BMI is in healthy range. Continue healthy [...] oral antihistamine and eye antihistamine. Patient prefers yoql-hqr-bblizju product like Zaditor monitor. Pre-diabetes 06/17/2018 01/17/2020 Assessment & Plan (01/17/2020 12:02 PM BILL HIKER): Pre-diabetes is a precursor to Dm. Stressed [...] Encounters Date Type Department Care Team Description 06/25/2024 ACO Clinical Pharmacist [address] [address] Elizabeth Lancaster RPh 06/21/2024 3:30 PM CDT Office Visit [address] [place] [phone] Jyoti Edge PA Malignant neoplasm of head of pancreas (HCC) (Primary Dx); Type 2 diabetes mellitus with hyperlipidemia (HCC); Controlled type 2 diabetes mellitus without complication, without long-term current use of insulin (HCC); Frailty; BMI 20.0-20.9, adult 06/04/2024 Results Follow-Up [address] [place] [phone] Jyoti Edge PA Lipid panel, Hemoglobin A1c, TSH, Albumin Creatinine Ratio, Urine 06/04/2024 Results Follow-Up [address] [place] [phone] Jyoti Edge PA Urine culture Urine, clean voided 06/03/2024 1:15 PM CDT Clinical Support [address] [place] [phone] Dysuria (Primary Dx) 06/01/2024 MAI IP Outreach [address] [address] Marisela Bran CMA 05/26/2024 Orders Only [address] [place] [phone] Jyoti Edge PA Type 2 diabetes mellitus with hyperlipidemia (HCC) (Primary Dx); Fatigue, unspecified type 05/26/[address] [place] [phone] Jyoti Edge PA Additional Services Or Orders 05/15/2024 Results Follow-Up [address] [place] [address] Jyoti Edge PA Urine culture Urine, clean voided 05/12/2024 9:00 AM CDT Clinical Support [address] [place] [phone] Urinary tract infection without hematuria, site unspecified (Primary Dx) 05/11/[address] [place] [phone] Jyoti Edge PA from Last 3 Months Immunizations Immunization Administration Dates Next Due COVID-19 mRNA (Hachiko) 0.3 m L (30 mcg) vaccine (12 years and up) 11/05/2023 Influenza, Quad, Adjuvantate d, Intramuscular 12/03/2022,12/05/2021,12/06/2019 Influenza, Quadrivalent, Hig h Dose, Preservative Free, Intrr 12/18/2020 Influenza, Trivalent, Adjuva nted, Intramuscular 12/18/2023 Influenza, Trivalent, High D ose, Split, Preservative Free, Intramuscular 12/01/2018 Influenza, Unspecified 12/03/2022,2021,01/20/2020,01/01,12/01/2017(Deferred: Patient Refused) Cellay SARS-CoV-2 Monovalent Vaccination (12+ Yrs) PURPLE 12/03/2022 [...] you have a drink containing alcohol? Never 06/21/2024 Q2: How many drinks containi ng alcohol do you have on a typical day when you are drinking? Patient does not drink Q3: How often do you have si x or more drinks on one occasion? 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 Not on file Not on file Not on file Obstetrics History Last Filed Vital Signs Vital Sign Reading Time Taken Comments Blood Pressure 110/72 06/21/2024 3:42 PM CDT Pulse 110 06/21/2024 3:42 PM CDT Temperature 36.9 C (98.4 F) 06/21/2024 3:42 PM CDT Respiratory Rate 16 10/28/2023 2:04 PM CDT Oxygen Saturation 96% 06/21/2024 3:42 PM CDT Inhaled Oxygen Concentration - - Weight 50.8 kg (112 lb) 06/21/2024 3:42 PM CDT Height 157.5 cm (5' 2) 06/21/2024 3:42 PM CDT Body Mass Index 20.49 06/21/2024 3:42 PM CDT Plan of Treatment Health Maintenance Due Date [...] 12/31/2019, Additional history exists eGFR 11/10/2024 11/11/2023, 06/06/2023, 04/10/2023, Additional history exists Hemoglobin A1C 11/26/2024 05/26/2024, 03/04, 11/15/2023, Additional history exists DTaP/Tdap/Td Vaccine (2 - Td or Tdap) 04/27/2025 04/27/2015 Colon Cancer Screening-DNA Stool 05/07/2025 05/08/19 23, 05/03/2011 Albumin Creatinine Ratio, Urine 05/26/2025 , 08/14/2023 Lipid Panel 05/26/2025 05/26/2024, 11/01, 08/05/2023, Additional history exists Depression Screening 06/21/2025 06/21/2024, 04/07/2024, 03/26/2024, Additional history exists Fall Risk Assessment 06/21/2025 06/21/2024, 04/07/2024, 03/26/2024, Additional history exists Colon Cancer Screening-CT Colonography Discontinued 05/03/2011 Colon Cancer Screening-Colonoscopy Discontinued 05/03/2011 Colon Cancer Screening-Sigmoidoscopy Discontinued 05/03/2011 Pneumococcal vaccine 65+ Completed 10/20/2018, 10/01 Zoster Vaccine Completed 06/14/2020, 01/01, 03/18/2013 Colon Cancer Screening-FIT Discontinued 05/07/2022, Influenza Vaccine Completed 12/18/2023, , 12/03/2022, Additional history exists Procedures Procedure Name Priority Date/Time Associated Diagnosis Comments POCT URINALYSIS DIPSTICK Routine 06/03/2024 1:19 PM CDT Dysuria URINE CULTURE Routine 06/03/2024 1:18 PM CDT Dysuria ALBUMIN CREATININE RATIO, URINE Routine 05/26/2024 9:01 [...] Urinary tract infection without hematuria, site unspecified COMPREHENSIVE METABOLIC PANEL Routine 11/11/2023 7:08 AM [...] STOOL DNA COLOGUARD Routine 05/07/2022 8:00 AM BILL HIKER Colon cancer screening COLONOSCOPY Routine 05/03/2011 from Last 3 Months or Most Recently Relevant to Health Maintenance Results * (ABNORMAL) POCT urinalysis dipstick (06/03/2024 1:19 PM CDT) Glucose, ur, POC Negative Negative MG/DL Bilirubin, ur, POC Moderate Negative, Small, Moderate, Large Ketones, ur, POC 160.(A) Negative Specific [place], POC 1.020 1.003 - 1.030 Blood, ur, POC Large(A) Negative pH, ur, POC 6.5 5.0 - 8.0 Protein, ur, POC 300.(A) Negative Urobilinogen, urine, POC 2.0(A) 0.2 - 1.0 mg/dL Nitrite, ur, POC Negative Negative Leukocytes, ur, POC Large(A) Negative Lot Number [id number] Urine 06/03/2024 1:19 PM CDT Jyoti ZULETA POINT OF CARE TEST ORDERAB LES Final Result * (ABNORMAL) Urine culture Urine, clean voided (06/03/2024 1:18 PM CDT) Urine culture (A) [facility] Comment: CULTURE, URINE, ROUTINE Micro Number: [id number] Test Status: Final Specimen Source: Urine Specimen Quality: Adequate Result: Greater than 100,000 CFU/mL of Escherichia coli COMMENT: Additional non-predominating organism(s) isolated. These organisms, commonly found on external and internal genitalia, are considered colonizers. No further testing performed. E.coli INT NORBERTO AMOX/CLAVULANATE S 4 AMP/SULBACTAM S 4 CEFAZOLIN NR <=4 2 CEFEPIME S <=0.12 CEFTAZIDIME S <=1 CEFTRIAXONE S <=0.25 CIPROFLOXACIN S <=0.06 GENTAMICIN S <=1 IMIPENEM S <=0.25 LEVOFLOXACIN S <=0.12 MEROPENEM S <=0.25 NITROFURANTOIN S 32 PIP/TAZOBACTAM S <=4 TRIMETHOPRIM/SULFA S <=20 S [...] cefuroxime, cephalexin and loracarbef. Urine, clean voided 06/03/2024 1:18 PM CDT 06/04/2024 3:22 AM CDT Jyoti ZULETA LAB MICROBIOLOGY - GENERAL ORDERABLES Final Result [facility] [address] [place] [address] * Albumin Creatinine Ratio, Urine (05/26/2024 9:01 [...] ZULETA LAB URINE ORDERABLES Final Result [facility] [address] [id number] * TSH (05/26/2024 9:01 AM CDT) TSH 1.46 0.40 - 4.50 mIU/L [facility] Blood 05/26/2024 9:01 AM CDT 05/26/2024 9:02 AM CDT Narrative [facility] - 05/27/2024 1:42 AM CDT FASTING:YES FASTING: YES Jyoti ZULETA LAB BLOOD ORDERABLES Final Result Performing Organization Address [facility] Co de Phone Number [facility] [address] [place] [address] * (ABNORMAL) Hemoglobin A1c (05/26/2024 9:01 AM CDT) Hgb A1C 6.0(H) <5.7 % of total Hgb [facility] Comment: For someone without known diabetes, a [...] AM CDT 05/26/2024 9:02 AM CDT Narrative [employer] - 05/27/2024 1:42 AM CDT FASTING:YES FASTING: YES Jyoti ZULETA LAB BLOOD ORDERABLES Final Result Performing Organization Address [facility] Co de Phone Number [facility] [address] [place] [address] * (ABNORMAL) Lipid panel (05/26/2024 9:01 AM CDT) Cholesterol 214(H) <200 mg/dL [facility] HDL 41(L) > OR = 50 mg/dL [facility] Triglycerides 244(H) <150 mg/dL [facility] Comment: If a non-fasting specimen was collected, consider repeat triglyceride testing on a fasting specimen if clinically indicated. Mayito et al. J. of Clin. Lipidol. 2015;9:129-169. LDL 134(H) mg/dL (calc) [facility] Comment: Reference range: <100 Desirable range <100 mg/dL for primary prevention; <70 mg/dL for patients with CHD or diabetic patients with > or = 2 CHD risk factors. LDL-C is now calculated using the Tre calculation, which is a validated novel method providing better accuracy than the Friedewald equation in the estimation of LDL-C. Terrance SS et al. KAJAL. 2013;310(19): 8181-3230 (http://education.Powered/faq/ITA440) Chol/HDL ratio 5.2(H) <5.0 (calc) [facility] Non-HDL, (LDL+VLDL) 173(H) <130 mg/dL (calc) [facility] Comment: For patients with diabetes plus 1 major ASCVD risk factor, treating to a non-HDL-C goal of <100 mg/dL (LDL-C of <70 mg/dL) is considered a therapeutic option. Blood 05/26/2024 9:01 AM CDT 05/26/2024 9:02 AM CDT Narrative [facility] - 05/27/2024 1:42 AM CDT FASTING:YES FASTING: YES Jyoti ZULETA LAB BLOOD ORDERABLES Final Result [facility] [address] [place] [address] * (ABNORMAL) POCT urinalysis dipstick (05/12/2024 8:35 AM CDT) Pathologist [facility] Glucose, ur, POC 100.(A) Negative MG/DL Bilirubin, ur, POC Large Negative, Small, Moderate, Large Ketones, ur, POC Negative Negative Specific [place], POC 1.025 1.003 - 1.030 Blood, ur, POC Negative Negative pH, ur, POC 6.0 5.0 - 8.0 Protein, ur, POC 30.(A) Negative Urobilinogen, urine, POC 0.2 0.2 - 1.0 mg/dL Nitrite, ur, POC Negative Negative Leukocytes, ur, POC Negative Negative Lot Number [id number] Urine 05/12/2024 8:35 AM CDT us Jyoti ZULETA POINT OF CARE TEST ORDERAB LES Final Result * Urine culture Urine, clean voided (05/12/2024 8:31 AM CDT) Urine culture [facility] Comment: CULTURE, URINE, ROUTINE Micro Number: [id number] Test Status: Final Specimen Source: Urine, clean catch Specimen Quality: Adequate Result: No Growth Urine, clean voided 05/12/2024 8:31 AM CDT 05/12/2024 11:44 PM CDT us Jyoti ZULETA LAB MICROBIOLOGY - GENERAL ORDERABLES Final Result [facility] [address] [place] [address] * (ABNORMAL) Comprehensive metabolic panel (11/11/2023 7:08 AM CDT) Glucose 158(H) 65 - 99 mg/dL [email or web address] Comment: For someone without known diabetes, a glucose value >125 mg/dL indicates that they may have diabetes and this should be confirmed with a follow-up test. Fasting reference interval BUN 8 7 - 25 mg/dL [email or web address] Creatinine 0.66 0.60 - 1.00 mg/dL [employer] tim[facility] Jay eGFR 93 > OR = 60 mL/min/1.7 3m2 [facility] BUN/creat ratio SEE NOTE: 6 - 22 (calc) [email or web address] Comment: Not Reported: BUN and Creatinine are within reference range. Sodium 139 135 - 146 mmol/L [email or web address] Potassium, pl 3.7 3.5 - 5.3 mmol/L [facility] Chloride 100 98 - 110 mmol/L [email or web address] CO2 28 20 - 32 mmol/L [employer] [facility] Calcium 9.2 8.6 - 10.4 mg/dL [employer] [facility] Protein, sr 6.9 6.1 - 8.1 g/dL [facility] Albumin 4.5 3.6 - 5.1 g/dL [facility] Jay GLOBULIN 2.4 1.9 - 3.7 g/dL (calc) [facility] Alb/glob ratio 1.9 1.0 - 2.5 (calc) [facility] Bilirubin, total 0.6 0.2 - 1.2 mg/dL [facility] Alk phos 72 37 - 153 U/L [facility] AST 21 10 - 35 U/L [facility] ALT (SGPT) 18 6 - 29 U/L [facility] Blood 11/11/2023 7:08 AM CDT 11/11/2023 7:08 AM CDT Narrative [facility] - 11/12/2023 6:02 AM CDT FASTING:YES FASTING: YES Jyoti ZULETA LAB BLOOD ORDERABLES Final Result [facility] [address] [place] [address] * (ABNORMAL) Screening Mammogram Bilateral W Raj (10/02/2023 2:09 PM CDT) Anatomical Region Laterality Modality Breast Bilateral Mammography Impressions 10/02/2023 2:09 PM CDT Additional mammographic views and possible breast ultrasound recommended. BI-RADS Category 0: Incomplete. Needs additional imaging evaluation. Result [facility] Jyoti ZULETA IMG MAMMO PROCEDURES Final Result [...] Stool DNA - Cologuard (05/07/2022 8:00 AM BILL HIKER) Stool DNA - Cologuard Negative Negative [facility] (CLIA #:[id number]) Comment: NEGATIVE TEST RESULT. A negative Cologuard [...] Guerin. et al, N Engl J Med 2014;370(14):6599-8503) The normal value (reference range) for this assay is negative. COLOGUARD RE-SCREENING RECOMMENDATION: Periodic colorectal cancer screening is an important part of preventive healthcare for asymptomatic individuals at average risk for colorectal cancer. Following a negative Cologuard result, the [place] [employer] Society and U.S. Multi-Society Task Force screening guidelines recommend a Cologuard re-screening interval of 3 years. References: [place] [employer] Guideline for Colorectal Cancer Screening: https://www.cancer.org/cancer/lwbvk-lqnzmw-memjll/okemfbfxe-easpktlbc-feyjojh/ac s-rec ommendations.html.; Guy GARCIA, Que CALHOUN, Nitesh CartagenaK, Colorectal Cancer Screening: Recommendations for Physicians and Patients from the U.S. Multi-Society Task Force on Colorectal Cancer Screening , Am J Gastroenterology 2017; 112:4318-1887. TEST DESCRIPTION: Composite algorithmic analysis of stool [...] screened with both Cologuard and colonoscopy. (Job Gmóez et al, N Engl J Med 2014;370(14):3630-7535.) Cologuard may produce a false negative or false positive result (no colorectal cancer or precancerous polyp present at colonoscopy follow up). A negative Cologuard test result does not guarantee the absence of CRC or advanced adenoma (pre-cancer). The current Cologuard screening interval is every 3 years. ([place] [employer] Society and U.S. Multi-Society Task Force). Cologuard performance data in a 10,000 patient pivotal study using colonoscopy as the reference method can be accessed at the following location: www.[employer]/results. Additional description of the Cologuard test process, warnings and precautions can be found at www.cologuard.com. Stool 05/07/2022 8:00 AM BILL HIKER 05/08/2022 1:53 PM BILL HIKER Jyoti ZULETA LAB BODY FLUIDS AND STOOLS ORDERABLES Final Result [facility] (CLIA #:[id number]) [address] [place], [place] [address] * Colonoscopy (05/03/2011) Anatomical Region Laterality Modality Other Narrative 05/03/2011 Dr. Arceo -- 2011--->2021 Historical Provider MD ENDOSCOPY PROCEDURES Irina l Result from Last 3 Months or Most Recently Relevant to Health Maintenance Insurance [facility] Member Subscriber Plan / Payer ( fective 2016-Present) Name:Liz Chun Relation to Subscriber:Self Name:Liz Chun Payer ID:[id number] (NAIC) Type:MEDICARE RISK OTHER Address: [place] [id number] [facility] Member Subscriber Plan / Payer ( fective 2016-Present) Name:Liz Chun Relation to Subscriber:Self Name:Liz Chun Payer ID:[id number] (NAIC) Type:MEDICARE RISK OTHER Address: [place] [id number] Care Teams Paper Folder Relationship Specialty Start Date End Date Jyoti Edge PA [address] [place] [address] PCP - General Internal Medicine 06/17/18
--- OUTSIDE RECORDS SUMMARY | 2024-08-10 17:28 | XMS_ITS | Clinical Summary ---
Author Organization [facility] Address [address] 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 This disclosure is being madepursuant to the Care Everywhere program and may not contain all information available regarding this patient. Last updated 17.[facility] [employer] Social History Tobacco Use Types Packs/Day Years [...] VACCINE ( - 2023-2 5 season) 2023 DEPRESSION SCREENING 03/03/2024 INFLUENZA VACCINE (Season Ended) 2024 Respiratory Syncytial Virus (RSV) Vaccine Pt: [...] on patient's age to complete this topic Insurance [employer] [facility] Address: [facility] CLAIMS [address] [place] [id number] [employer] [facility] Address: [address] [place] [address]
--- OUTSIDE RECORDS SUMMARY | 2024-08-10 17:28 | XMS_ITS | Clinical Summary ---
Author Organization [facility] Address [address] [place] [address] Phone Care Team Providers Care Home Health Manager Name Role Phone Unavailable Primary Care Provider Unavailabl e Allergies Active Allergy Reactions Criticality Noted Date Comments Penicillins Unknown 12/05/2023 As a child, does not know symptoms Medications pantoprazole (PROTONIX) 40 mg Tablet, Delayed Release (E.C.) Take 40 mg by mouth 2 times daily. 04/02/19 24 Active rosuvastatin (CRESTOR) 10 mg tablet Take 10 mg by mouth daily. 10/30/19 23 Active mirtazapine (REMERON) 7.5 mg tabletIndications: Cancer cachexia Take 1 Tablet (7.5 mg) by mouth daily at bedtime. 30 Tablet 02/18/20 24 Active fluticasone propionate (FLONASE) 50 mcg/spray [place], Suspension nasal inhaler Administer 2 Sprays in each nostril daily. 04/19/19 25 Active ondansetron (ZOFRAN) 8 mg TabletIndications: Pancreatic adenocarcinoma (CMS/HCC) Take 1 Tablet (8 mg) by mouth every 8 hours as needed for Nausea/Emesis. 60 Tablet 1 07/14/19 25 Active loperamide (IMODIUM) 2 mg capsuleIndications :Pancreatic adenocarcinoma (CMS/HCC) Take 2 capsules (4 mg) with onset of diarrhea follow by 1 capsule (4 mg) every 2-4 hours as needed for diarrhea. No more than 8 capsules in 24 hours. 90 Capsule 2 07/14/19 25 Active HYDROcodone-acetam inophen (NORCO) 5-325 mg tabletIndications: Pancreatic adenocarcinoma (CMS/HCC) Take 0.5-1 Tablets by mouth every 4 hours as needed for Pain, Moderate. Max Daily Amount: 6 Tablets 180 Tablet 08/11/19 25 Active loperamide (IMODIUM) 2 mg capsuleIndications :Pancreatic adenocarcinoma (CMS/HCC) Take 2 capsules (4 mg) with onset of diarrhea follow by 1 capsule (4 mg) every 2-4 hours as needed for diarrhea. No more than 8 capsules in 24 hours. 90 Capsule 2 12/10/19 24 025 Discontin ued(Reord er) ondansetron (ZOFRAN) 8 mg TabletIndications: Pancreatic adenocarcinoma (CMS/HCC) Take 1 Tablet (8 mg) by mouth every 8 hours as needed for Nausea/Emesis. 60 Tablet 1 06/03/19 25 025 Discontin ued(Reord er) HYDROcodone-acetam inophen (NORCO) 5-325 mg tabletIndications: Pancreatic adenocarcinoma (CMS/HCC) Take 0.5-1 Tablets by mouth every 4 hours as needed for Pain, Moderate. Max Daily Amount: 6 Tablets 30 Tablet 07/14/19 25 025 Discontin ued(Reord er) Active Problems Problem Noted Date Diagnosed Date Abdominal pain 05/28/2024 Dyspnea 05/28/2024 Malignant ascites 05/28/2024 Bloating 05/28/2024 Pancreatic adenocarcinoma 12/04/2023 Dysuria 11/21/2023 Protein-calorie malnutrition, severe 11/17/2023 Type 2 diabetes mellitus, wi [facility] long-term current use of insulin 11/15/2023 Hyperlipidemia 11/15/2023 GERD (gastroesophageal reflux disease) 4 Pancreatic mass 11/15/2023 Facial skin lesion 05/03/2023 Eustachian tube disorder 04/05/2019 Osteopenia of spine 06/17/2018 Vitamin D deficiency 06/17/2018 Encounters Date Type Department Care Team Description 5 External Device Data STL ABSTRACTION Provider, Abstract 5 [facility] Palliative Care [facility] [address] [facility] [address] [place] [address] Héctor Steiner MD Pancreatic adenocarcinoma (CMS/HCC) 5 11:14 AM CDT - 5 11:59 PM CDT Hospital Encounter [facility] Interventional Radiology [place] [address] [place] [phone] Yu Wise DO Nur, Sjdonald Ir Arrived Discharge Disposition: Home or Self Care 5 Telephone [facility] Palliative [facility] [address] [place] [address] Yu Wise DO Information 5 Telephone [facility] Palliative Care [place] [facility] [address] [place] [address] Yu Wise DO Needs Orders Written 5 Orders Only [facility] Palliative [facility] [place] [facility] [address] [facility] [address] [place] [phone] Yu Wise DO Malignant neoplasm of pancreas, unspecified location of malignancy (CMS/HCC) (Primary Dx) 5 Orders Only [facility] Palliative [facility] [place] [facility] [address] [facility] [address] [place] [address] Yu Wise DO Malignant neoplasm of pancreas, unspecified location of malignancy (CMS/HCC) (Primary Dx) 5 Telephone [facility] Palliative Care [place] [facility] [address] [place] [address] Yu Wise DO questions 5 11:20 AM CDT - 5 11:59 PM CDT Hospital Encounter [facility] Interventional Radiology [place] [address] [place] [phone] Yu Wise DO Nur, [facility] Discharge Disposition: Home or Self Care 5 External Device Data STL ABSTRACTION Provider, Abstract 5 External Device Data STL ABSTRACTION Provider, Abstract 5 External Device Data STL ABSTRACTION Provider, Abstract 5 External Device Data STL ABSTRACTION Provider, Abstract 5 Telephone [facility] Radiology Recovery Area [address] [facility] [address] [place] [address] Ariella Kirkland FNP Follow Up 5 External Device Data STL ABSTRACTION Provider, Abstract 5 11:13 AM CDT - 5 11:59 PM CDT Hospital Encounter [facility] Interventional Radiology S [facility] [address] [place] [address] Yu Wise DO Nur, [facility] Ir Discharge Disposition: Home or Self Care 5 External Device Data STL ABSTRACTION Provider, Abstract 5 External Device Data STL ABSTRACTION Provider, Abstract 5 External Device Data STL ABSTRACTION Provider, Abstract 5 External Device Data STL ABSTRACTION Provider, Abstract 5 External Device Data STL ABSTRACTION Provider, Abstract 5 External Device Data STL ABSTRACTION Provider, Abstract 5 1:00 PM CDT Office Visit [facility] [address] [facility] [address] [place] [address] Yu Wise DO Cancer related pain (Primary Dx); Pancreatic adenocarcinoma (CMS/HCC); Malignant ascites (CMS/HCC); Protein-calorie malnutrition, severe; Palliative care by specialist; Advance care planning 5 External Device Data STL ABSTRACTION Provider, Abstract 5 External Device Data STL ABSTRACTION Provider, Abstract 5 External Device Data STL ABSTRACTION Provider, Abstract 5 External Device Data STL ABSTRACTION Provider, Abstract 5 External Device Data STL ABSTRACTION Provider, Abstract 5 External Device Data STL ABSTRACTION Provider, Abstract 5 External Device Data STL ABSTRACTION Provider, Abstract 5 External Device Data STL ABSTRACTION Provider, Abstract 5 Telephone [facility] [place] [address] [facility] [address] [place] [address] Tristan Jade NP Genetic testing results 5 External Device Data STL ABSTRACTION Provider, Abstract 5 External Device Data STL ABSTRACTION Provider, Abstract 5 External Device Data STL ABSTRACTION Provider, Abstract 5 10:57 AM CDT - 5 11:59 PM CDT Hospital Encounter [facility] Interventional Radiology [facility] [address] [place] [address] Madison Wood V., DO Joseline, [facility] Ir Discharge Disposition: Home or Self Care 5 External Device Data STL ABSTRACTION Provider, Abstract 5 External Device Data STL ABSTRACTION Provider, Abstract 5 External Device Data STL ABSTRACTION Provider, Abstract 5 External Device Data STL ABSTRACTION Provider, Abstract 5 Orders Only [facility] Oncology and Hematology [facility] [address] [facility] [address] [place] [phone] Madison Wood V., Pancreatic mass (Primary Dx); Pancreatic adenocarcinoma (CMS/HCC); Malignant ascites (CMS/HCC); Bloating 5 External Device Data STL ABSTRACTION Provider, Abstract 5 External Device Data STL ABSTRACTION Provider, Abstract 5 External Device Data STL ABSTRACTION Provider, Abstract 5 External Device Data STL ABSTRACTION Provider, Abstract 5 11:59 PM CDT Hospital Encounter [facility] 3rd Al [address] [facility] [address] [facility] [place] [address] Zehra Smith MD Left without seen Discharge Disposition: Home or Self Care 5 10:30 AM CDT Office Visit [facility] Oncology [facility] [address] [facility] [address] [place] [address] Zehra Smith MD Kosuri, Kavitha V., Malignant ascites (CMS/HCC) (Primary Dx); Pancreatic adenocarcinoma (CMS/HCC); Counseling regarding end of life decision making 5 8:15 AM CDT - 5 11:59 PM CDT Hospital Encounter Reginald Schaefer [facility] Infusion Center 2nd Al [address] [place] [address] Zehra Smith MD Discharge Disposition: Home or Self Care 5 External Device Data STL ABSTRACTION Provider, Abstract 5 External Device Data STL ABSTRACTION Provider, Abstract 5 External Device Data STL ABSTRACTION Provider, Abstract 5 External Device Data STL ABSTRACTION Provider, Abstract 5 11:45 AM CDT - 5 11:59 PM CDT Hospital Encounter [facility] Infusion Center 3rd Al [address] [facility] [address] [place] [address] Zehra Smith MD Discharge Disposition: Home or Self Care 5 11:15 AM CDT Office Visit [facility] Oncology [facility] Hematology [facility] [address] [facility] [address] [place] [address] Zehra Smith MD Encounter for antineoplastic chemotherapy (Primary Dx); Pancreatic adenocarcinoma (CMS/HCC); Antineoplastic chemotherapy induced anemia 5 10:15 AM CDT - 5 11:59 PM CDT Hospital Encounter [facility] 2nd Al [address] [place] [address] Zehra Smith MD Discharge Disposition: Home or Self Care 5 12:38 PM CDT - 5 11:59 PM CDT Hospital Encounter [facility] Interventional Radiology S [facility] [address] [place] [address] Beatris Vega, ANP [facility] Ir Discharge Disposition: Home or Self Care 5 Chart Note [facility] Oncology Patient Navigation [address] [place] [address] Jennifer Arreaga, RN 5 10:30 AM CDT Office Visit [facility] Oncology [facility] Hematology [facility] [address] [facility] [address] [place] [address] Zehra Smith MD Smith, Lauren E, ANP Pancreatic adenocarcinoma (CMS/HCC) (Primary Dx); Health education/counseling; Malignant ascites (CMS/HCC) 5 8:50 AM CDT - 5 11:59 PM CDT Hospital Encounter [address] [place] [address] Min, Zehra Cartagena MD Discharge Disposition: Home or Self Care 5 Orders Only [facility] [address] [facility] [address] [place] [address] Min, Zehra Cartagena MD 5 4:30 PM CDT - 5 11:59 PM CDT Hospital Encounter [facility] Laboratory Services [address] [facility] [address] [place] [address] Min, Zehra Cartagena MD Discharge Disposition: Home or Self Care 5 2:00 PM CDT - 5 11:59 PM CDT Hospital Encounter [address] [place] [address] Min, Zehra Cartagena MD Discharge Disposition: Home or Self Care 5 1:45 PM CDT Office Visit [facility] [address] [facility] [address] [place] [address] Min, Zehra Cartagena MD Aspiration pneumonia, unspecified aspiration pneumonia type, unspecified laterality, unspecified part of lung (CMS/HCC) (Primary Dx); Pancreatic adenocarcinoma ([facility]/HCC); Unspecified infectious disease 5 Orders Only [facility] [address] [facility] [address] [place] [address] Tristan Jade NP Pancreatic adenocarcinoma (CMS/HCC) (Primary Dx); Malignant ascites (CMS/HCC) 5 External Device Data STL ABSTRACTION Provider, Abstract 5 External Device Data STL ABSTRACTION Provider, Abstract 5 External Device Data STL ABSTRACTION Provider, Abstract 5 5:11 PM CDT - 5 4:57 PM CDT Hospital Encounter [facility] Oncology [address] [place] [address] Dakota Walters MD Caffrey, MD Aide Rogers Eric, MD Khan, Mafaza, MD Robertson, Nathan C, MD Malignant ascites ([facility]/HCC) Discharge Disposition: Home or Self Care 5 Travel 5 11:00 AM CDT - 5 12:00 PM CDT Surgery [facility] GI Lab [address] [place] [address] [place] [address] Reginald Slater MD CHOLANGIOPANCREATOGRAPHY RETROGRADE ENDOSCOPIC 5 10:31 AM CDT Anesthesia Event [facility] GI Lab [address] [place] [address] [place] [address] Unruly Shearer MD Smolievskaya, Darya, AA-C 5 9:48 AM CDT - 5 12:48 PM CDT Hospital Encounter [facility] GI Lab [address] [place] [address] [place] [address] Reginald Slater MD Biliary obstruction ([facility]/HCC) Discharge Disposition: Home or Self Care from Last 3 Months Social History Tobacco [...] Sign Reading Time Taken Comments Blood Pressure 123/63 2024 1:00 PM CDT Pulse 109 2024 1:00 PM CDT Temperature 36.1 C (96.9 F) 07/13/2024 12:53 PM CDT Respiratory Rate 18 07/19/2024 1:02 PM CDT Oxygen Saturation 99% 2024 1:00 PM CDT Inhaled Oxygen Concentration - - Weight 52.2 kg (115 lb) 07/13/2024 12:53 PM CDT Height 157.5 cm (5' 2) 07/13/2024 12:53 PM CDT Body Mass Index 21.03 07/13/2024 12:53 PM CDT Plan of Treatment Upcoming Encounters Date Type Department Care Team (Latest Contact Info) Description 08/13/2024 12:30 PM CDT Hospital Encounter [facility] Interventional Radiology [facility] [address] [place] [address] Ingrid Wisesay, [address] [place] [address] 13, Hayden Trevizo [facility] Ir 08/24/2024 2:00 PM CDT Office Visit [facility] Palliative [facility] [address] [place] [address] Yu Wise, DO [address] [place] [address] 03/18/2025 1:15 PM VIDEO TAPE EDITOR Office Visit [facility] Medicine [address] [place] [address] Marisela Moore MD [address] [facility] [address] [place] [address] Health Maintenance Due Date Last Done Comments [...] - Pfizer risk series) 12/03/2023 11/05/2023, 12/03/2022 BREAST CANCER SCREENING 10/20/2024 10/21/19, 10/21/2023, 10/02/2023, Additional history exists DIABETES HBA1C Q 6 MONTHS 11/26/20242024, 03/26/2024, 11/15/2023, Additional history exists DTAP/TDAP/TD VACCINES (2 - T d or Tdap) 04/27/2025 04/27/2015 OSTEOPOROSIS SCREENING 08/17/2027 , 08/16/2022, 05/12/2020 PNEUMOCOCCAL VACCINE 50+ YEARS Completed 10/20/2018 , 10/15/2016 ZOSTER VACCINE Completed 06/14/2020, 01/01, 03/18/2013 INFLUENZA VACCINE Completed 12/18/2023, , 12/06/2019, Additional history exists Medical Devices Implanted Type Area Automotive Starter Repairer Device Identifier Shelf Expiration Date Model / Serial / Lot Port Powerport Mri 8fr [id number] - [id number] Implanted:Qty : 1 on 12/05/2023 by Kristian Jimenez MD at [facility] Port Right: Chest BARD SHEREE VASC [id number] 01/30/2025 [id number] / / [id number] Stent Bili Viabil [id number] - [id number] Implanted:Qty : 1 on 05/13/2024 by Reginald Slater MD at [facility] Stent N/A: Bile Duct [employer] [id number] 02/28/2027 [id number] / [id number] / Procedures Procedure Name Priority Date/Time Associated Diagnosis Comments US ASPIRATION ABDOMEN Routine 2024 1:10 PM CDT Pancreatic adenocarcinoma (CMS/HCC) US ASPIRATION ABDOMEN Routine 07/30/2024 1:19 PM CDT Pancreatic adenocarcinoma (CMS/HCC) US ASPIRATION ABDOMEN Routine 07/19/2024 12:30 PM CDT Pancreatic adenocarcinoma (CMS/HCC) US ASPIRATION ABDOMEN Routine 07/02/2024 12:28 PM CDT Pancreatic adenocarcinoma (CMS/HCC) COMPREHENSIVE METABOLIC PANEL Stat 06/25/2024 10:14 AM CDT Pancreatic adenocarcinoma (CMS/HCC) CBC WITH DIFFERENTIAL Stat 06/25/2024 10:14 AM CDT Pancreatic adenocarcinoma (CMS/HCC) COMPREHENSIVE METABOLIC PANEL Stat 06/18/2024 10:45 AM CDT Pancreatic adenocarcinoma (CMS/HCC) CBC WITH DIFFERENTIAL Stat 06/18/2024 10:45 AM CDT Pancreatic adenocarcinoma (CMS/HCC) US ASPIRATION ABDOMEN Routine 06/16/2024 2:10 PM CDT Pancreatic adenocarcinoma (CMS/HCC) COMPREHENSIVE METABOLIC PANEL Stat 06/11/2024 10:11 AM CDT Pancreatic adenocarcinoma (CMS/HCC) CBC WITH DIFFERENTIAL Stat 06/11/2024 10:11 AM CDT Pancreatic adenocarcinoma (CMS/HCC) PATHOLOGY Pathology 06/02/2024 4:32 PM CDT Encounter for laboratory test TEMPUS XF Routine 06/02/2024 2:07 PM CDT Pancreatic adenocarcinoma (CMS/HCC) TEMPUS XG CANCERNEXT AND XG+ CANCERNEXT-EXPANDED Routine 06/02/2024 2:07 PM CDT Pancreatic adenocarcinoma (CMS/HCC) Malignant ascites (CMS/HCC) COMPREHENSIVE METABOLIC PANEL Stat 06/02/2024 2:03 PM CDT Aspiration pneumonia, unspecified aspiration pneumonia type, unspecified laterality, unspecified part of lung (CMS/HCC) Pancreatic adenocarcinoma (CMS/HCC) CBC WITH DIFFERENTIAL Stat 06/02/2024 2:03 PM CDT Aspiration pneumonia, unspecified aspiration pneumonia type, unspecified laterality, unspecified part of lung (CMS/HCC) Pancreatic adenocarcinoma (CMS/HCC) CANCER ANTIGEN 19-9 Routine 06/02/2024 2 :03 PM CDT Aspiration pneumonia, unspecified aspiration pneumonia type, unspecified laterality, unspecified part of lung (CMS/HCC) Pancreatic adenocarcinoma (CMS/HCC) CEA Stat 06/02/2024 2:03 PM CDT Aspiration pneumonia, unspecified aspiration pneumonia type, unspecified laterality, unspecified part of lung (CMS/HCC) Pancreatic adenocarcinoma (CMS/HCC) TEMPUS XT NORMAL BLOOD Routine 06/02/2024 1:55 PM CDT Pancreatic adenocarcinoma (CMS/HCC) TEMPUS XT DNA AND RNA Routine 06/02/2024 1:55 PM CDT Pancreatic adenocarcinoma (CMS/HCC) CYTOLOGY, NON GYNE Pathology 05/29/2024 11:54 AM CDT GLUCOSE, BODY FLUID Routine 05/29/2024 11:54 AM CDT LACTATE DEHYDROGENASE, BODY FLUID Routine 05/29/2024 11:54 AM CDT PROTEIN, BODY FLUID Routine 05/29/2024 11:54 AM CDT ALBUMIN LEVEL, BODY FLUID Routine 05/29/2024 11:54 AM CDT CELL COUNT WITH DIFFERENTIAL, BODY FLUID Routine 05/29/2024 11:54 AM CDT ANAEROBIC/AEROBIC CULTURE W GRAM STAIN Routine 05/29/2024 11:54 AM CDT PROTIME-INR Stat 05/29/2024 10:05 AM CDT C. DIFFICILE DETECTION Routine 05/29/2024 8:34 AM CDT COMPREHENSIVE METABOLIC PANEL Routine 05/29/2024 3:18 AM CDT CBC WITH DIFFERENTIAL Routine 05/29/2024 3:18 AM CDT PT EVAL AND TREAT Routine 05/28/2024 10:04 PM CDT OT EVAL AND TREAT Routine 05/28/2024 10:04 PM CDT CTA CHEST + ABD/PEL W CONTRAST Stat 05/28/2024 7:24 PM CDT URINALYSIS W/REFLEX MICROSCOPIC Stat 05/28/2024 7:04 PM CDT POC CREATININE Stat 05/28/2024 6:10 PM CDT PHOSPHORUS Routine 05/28/2024 6:03 PM CDT MAGNESIUM LEVEL Routine 05/28/2024 6:03 PM CDT C-REACTIVE PROTEIN Stat 05/28/2024 6: 03 PM CDT LIPASE Stat 05/28/2024 6:03 PM CDT COMPREHENSIVE METABOLIC PANEL Stat 05/28/2024 6:03 PM CDT CBC WITH DIFFERENTIAL Stat 05/28/2024 6:03 PM CDT EKG 12-LEAD Stat 05/28/2024 4:47 PM CDT ERCP REPORT 05/13/2024 11:07 AM CDT UT ERCP DX COLLECTION SPECIMEN BRUSHING/WASHING 05/13/2024 11:00 AM CDT Biliary obstruction (CMS/HCC) Case Notes emailed prep-jdl XR ERCP BILIARY AND PANCREATIC Routine 05/13/2024 10:58 AM CDT UT ANES INSERT ENDOTRACHEAL AIRWAY Routine 05/13/2024 10:39 AM CDT HEMOGLOBIN A1C Routine 11/15/2023 4:02 PM CDT from Last 3 Months or Most Recently Relevant to Health Maintenance Results * US ASPIRATION ABDOMEN (2024 1:10 PM CDT) Only the most recent of5 resultswithin the time period is included. Anatomical Region Laterality Modality Abdomen X-Ray Angiograph y 2024 1:11 PM CDT Impressions 2024 4:27 PM CDT IMPRESSION: Ultrasound-guided paracentesis as described above. DICTATION LOCATION: Location 1 - [facility] 2024 4:27 PM CDT ULTRASOUND-GUIDED PARACENTESIS DATE: 2024 1:10 PM HISTORY: 74 years old Female with history of ascites presents for paracentesis. SURGEON: Margret Britton MD MEDICATION: None ANESTHESIA: 1% lidocaine locally TECHNIQUE: Sonographic evaluation of the abdomen demonstrated ascites that is amenable to percutaneous aspiration. A sonographic image was saved to the patient's permanent medical record. Under direct ultrasound guidance a 5 Albanian catheter was advanced into the peritoneal cavity and a paracentesis was performed. . The patient tolerated the procedure well. Procedure Note Margret Britton MD - 2024 ULTRASOUND-GUIDED PARACENTESIS DATE: 2024 1:10 PM HISTORY: 74 years old Female with history of ascites presents for paracentesis. SURGEON: Margret Britton MD MEDICATION: None ANESTHESIA: 1% lidocaine locally TECHNIQUE: Sonographic evaluation of the abdomen demonstrated ascites that is amenable to percutaneous aspiration. A sonographic image was saved to the patient's permanent medical record. Under direct ultrasound guidance a 5 Albanian catheter was advanced into the peritoneal cavity and a paracentesis was performed. . The patient tolerated the procedure well. IMPRESSION: Ultrasound-guided paracentesis as described above. DICTATION LOCATION: Location 1 - [facility] us Yu Wise DO US ORDERABLES Final Result * (ABNORMAL) CBC WITH DIFFERENTIAL (06/25/2024 10:14 AM CDT) Only the most recent of6 resultswithin the time period is included. WBC 4.3 4.0 - 9.8 K/uL 06/25/2024 10:42 AM [facility] LABORAT[facility] SERVICES [facility] RBC 3.50(L) 3.90 - 4.90 M/uL 06/25/2024 10:42 AM [facility] LABORATORY [facility] HEMOGLOBIN 10.8(L) 11.8 - 14.8 g/dL 06/25/2024 10:42 AM [facility] LABORATORY [facility] HEMATOCRIT 32.3(L) 35.5 - 44.0 % 06/25/2024 10:42 AM [facility] LABORATORY SERVICES [facility] MCV 92.3 82.0 - 99.0 fL 06/25/2024 10:42 AM [facility] LABORATORY SERVICES [facility] MCH 30.9 27.2 - 32.6 pg 06/25/2024 10:42 AM [facility] LABORATORY [facility] MCHC 33.4 31.5 - 35.5 g/dL 06/25/2024 10:42 AM [facility] LABORATORY SERVICES [facility] RDW 15.3(H) 11.5 - 14.5 % 06/25/2024 10:42 AM [facility] LABORATORY [facility] RDW-STDEV 51.5(H) 37.1 - 48.7 fL 06/25/2024 10:42 AM [facility] LABORATORY SERVICES [facility] PLATELETS 103(L) 140 - 350 K/uL 06/25/2024 10:42 AM [facility] LABORATORY [facility] MPV 10.1 9.3 - 12.4 fL 06/25/2024 10:42 AM [facility] NEUTROPHILS 80 % 06/25/2024 10:42 AM T [facility] [employer] [facility] LYMPHOCYTES 9 % 06/25/2024 10:42 AM T [facility] MONOCYTES 9 % 06/25/2024 10:42 AM T [facility] EOSINOPHILS 1 % 06/25/2024 10:42 AM T [facility] BASOPHILS 0 % 06/25/2024 10:42 AM T [facility] IMMATURE GRANULOCYTES 1 % 06/25/2024 10:42 AM T [facility] Comment:IG (Immature Granulo cyte) count includes Metamyelocytes, Myelocytes, and Promyelocytes NEUTROPHIL ABSOLUTE 3.47 1.90 - 7.00 K/uL 06/25/2024 10:42 AM [facility] [employer] [facility] LYMPHOCYTE ABSOLUTE 0.41(L) 0.70 - 4.50 K/uL 06/25/2024 10:42 AM T [facility] [employer] [facility] MONOCYTE ABSOLUTE 0.40 0.10 - 1.30 K/uL 06/25/2024 10:42 AM T [facility] [employer] [facility] - . [facility] EOSINOPHIL ABSOLUTE 0.02 0.00 - 0.70 K/uL 06/25/2024 10:42 AM T [facility] [employer] [facility] - . [facility] BASOPHILS ABSOLUTE 0.01 0.00 - 0.20 K/uL 06/25/2024 10:42 AM [facility] IMMATURE GRANULOCYTES ABSOLUTE 0.03 0.00 - 0.03 K/uL 06/25/2024 10:42 AM [facility] [employer] [facility] Blood Venipuncture / Unknown 06/25/2024 10:14 AM CDT 06/25/2024 10:38 AM CDT us Zehra Smith MD HEMATOLOGY ORDERABLES Final R esult [facility] [employer] [facility] CLIA# [id number] [facility] [place] [address] * (ABNORMAL) COMPREHENSIVE METABOLIC PANEL (06/25/2024 10:14 AM [facility]) Only the most recent of6 resultswithin the time period is included. SODIUM 136 136 - 145 mmol/L 06/25/2024 11:00 AM [facility] POTASSIUM 3.3(L) 3.5 - 5.0 mmol/L 06/25/2024 11:00 AM [facility] CHLORIDE 100 98 - 107 mmol/L 06/25/2024 11:00 AM [facility]. [facility] CO2 26 22 - 29 mmol/L 06/25/2024 11:00 AM [facility]. [facility] CALCIUM 8.1(L) 8.6 - 10.2 mg/dL 06/25/2024 11:00 AM [facility]. [facility] BUN 9 8 - 23 mg/dL 06/25/2024 11:00 AM [facility]. [facility] CREATININE 0.51 0.51 - 0.95 mg/dL 06/25/2024 11:00 AM [facility] Comment:The GFR result is no t clinically significant on patients <18 or >70 years of age. GLUCOSE 124(H) 74 - 99 mg/dL 06/25/2024 11:00 AM [facility] TOTAL PROTEIN 5.6(L) 6.7 - 8.6 g/dL 06/25/2024 11:00 AM [facility] ALBUMIN 2.8(L) 3.5 - 5.2 g/dL 06/25/2024 11:00 AM [facility] BILIRUBIN TOTAL 0.9 0.2 - 1.1 mg/dL 06/25/2024 11:00 AM [facility] ALKALINE PHOSPHATASE 849(H) 35 - 104 U/L 06/25/2024 11:00 AM [facility] AST 43(H) <33 U/L 06/25/2024 11:00 AM [facility] ALT 15 <34 U/L 06/25/2024 11:00 AM CDT [facility] GFR >60 mL/min/1.7 3 sq meter 06/25/2024 11:00 AM T [facility] Comment:eGFR calculated with 2020 CKD-EPI equation. Vegetarian diet, extremely high or low muscle mass, and may affect results. Cystatin C with Glomerular Filtration Rate is a suitable alternative for these patients. ANION GAP 10 8 - 16 mmol/L 06/25/2024 11:00 AM T [facility] Blood Venipuncture / Unknown 06/25/2024 10:14 AM CDT 06/25/2024 10:36 AM CDT Narrative [facility] - 06/25/2024 11:00 AM CDT Samples containing indocyanine green cause interferences on Total and/or Direct Bilirubin and must not be measured. us Zehra Smith MD CHEMISTRY ORDERABLES Final Re sult [facility]# [id number] [address] [place] [address] * PATHOLOGY (06/02/2024 4:32 PM CDT) CASE REPORT Surgical Pathology Report Case: [id number] Authorizing Provider: Zehra Smith MD Collected: 06/02/2024 04:32 PM Ordering Location: [facility] Received: 06/03/2024 09:53 AM Services [facility] Pathologist: Bill Mckeon MD Specimen: Other, specify 11:19 AM CDT [facility] FINAL DIAGNOSIS A request for [facility] was received on 06/02/[address] Zehra Smith. This test was performed on tissue from case [id number]. The case report, slides, and blocks for this case were retrieved from archives. The pathologist reviewed the original pathology report, examined candidate slides, and selected the most appropriate block(s). This selected material was forwarded to [facility] where the test was performed. The final report will be issued directly to the requesting physician. 11:19 AM CDT [facility] at 1119 CDT CLINICAL INFORMATION Z01.89 - Encounter for laboratory test [ICD-10-CM] 11:19 AM CDT [facility] COMMENT Special stain, immunohistochemical, and/or in situ hybridization results are interpreted with controls that demonstrate appropriate staining reactions. Note on use of immunohistochemistry reagents and in situ hybridization probes: These tests were developed and their performance characteristics determined by [facility], Department of Laboratory Medicine. It has not been cleared or approved by the U.S. Food and Drug Administration. The FDA has determined that such clearance or approval is not necessary. The test is used for clinical purposes. It should not be regarded as investigational or for research. This laboratory is certified to perform high complexity testing. Frozen section/operating room consultation, gross examination and dissection, and case sign out may have been performed in part or completely in the following laboratories: [facility], CLIA #[id number] [address] [place] [address] [id number] [address] [place] [id number] [place] [address]/[place], CLIA #[id number] [address] [place] [address] This report was created with the PowerPot voice-activated dictation system. Inherent to this system is the possibility of syntax, grammar, punctuation and other errors that could impact the interpretation of the report. If there are interpretative questions about aspects of this report, please contact the performing pathologist. 11:19 AM CDT [facility] Tissue (Other, specify) 06/02/2024 4:32 PM CDT 06/03/2024 9:53 AM CDT us Zehra Smith MD PATHOLOGY/CYTOLOGY ORDERABLES Final Result [facility] CLIA# [id number] [address] [place] [address] * [facility] (06/02/2024 2:07 PM CDT) Reason for Study To identify mutations relevant to patient's cancer. 06/11/2024 9:23 PM CDT [facility] Genetic Diseases Assessed Cancer 06/11/2024 9:23 PM CDT [facility] Description of Ranges of DNA Sequences Examined 523 gene liquid biopsy 06/11/2024 9:23 PM CDT [facility] Overall Interpretation positive 06/11/2024 9:23 PM CDT [facility] [email or web address] cities/patient /[id number] 0dbf9/[email or web address]/[email or web address] [id number] 06/11/2024 9:23 PM CDT [facility] Comment:[facility] link Low Coverage Regions DNMT1, GNA11, KDM5D, NOTCH1, NOTCH2, PRKN, RAD51C, RHOA, RXRA, SDHAF2, TGFBR1, TP53 06/11/2024 9:23 PM CDT [facility] Therapy Count 1 06/11/2024 9:23 PM CDT [facility]: Potential Therapy 1 Gene: 795^SHANEL^HGNC Variant: SHANEL c.2922-1G>A Match Type: snvIndel Match Type Description: SHANEL c.2922-1G>A Agent: Olaparib Drug Class: PARP Inhibitor Tissue: Prostate Cancer Association: Response Evidence Status: Consensus Evidence ID: NCCN [id number] Variant: [id number] Label: FDA Off Label FDA Approved?: Yes On label?: No 06/11/2024 9:23 PM CDT [facility] Trial Count 3 06/11/2024 9:23 PM CDT [facility]: Clinical Trial Match 1 Clinical Trial NCT ID: [id number] Clinical Trial Title: A Study to Learn About the Study Medicine [id number] When Given Alone or With Other Anti-cancer Therapies in People With Advanced Solid Tumors That Have a Genetic Mutation. Clinical Trial URL: https://clinical trials.gov/ct2/s how/ Clinical Phase: Phase 1 Clinical Trial Matches: KRAS p.G12D mutation Clinical Trial Distance and Location: [address] [place] [place] 06/11/2024 9:23 PM CDT [facility]: Clinical Trial Match 2 Clinical Trial NCT ID: [id number] Clinical Trial Title: A Study of APG-115 in as a Monotherapy or Combination With Pembrolizumab in Patients With Metastatic Melanomas or Advanced Solid Tumors Clinical Trial URL: https://clinical trials.gov/ct2/s how/[email or web address] Clinical Phase: Phase 1/Phase 2 Clinical Trial Matches: SHANEL c.2922-1G>A mutation Clinical Trial Distance and Location: [address] [place], [place] 06/11/2024 9:23 PM CDT [facility]: Clinical Trial Match 3 Clinical Trial NCT ID: [id number] Clinical Trial Title: KO-2806 Monotherapy and Combination Therapies in Advanced Solid Tumors Clinical Trial URL: https://clinical trials.gov/ct2/s how/[id number] Clinical Phase: Phase 1 Clinical Trial Matches: KRAS p.G12D mutation Clinical Trial Distance and Location: [address] [place], [place] 06/11/2024 9:23 PM CDT [facility] Tumor Mutational [place] 5.0 m/MB 06/11/2024 9:23 PM CDT [facility] Microsatellite Instability Note MSI-High not detected 06/11/2024 9:23 PM CDT [facility] Blood Collection / Unknown 06/02/2024 2:07 PM CDT 06/02/2024 2:12 PM CDT Narrative This result has genomic variants that were not included in this document. us Zehra Smith MD MOLECULAR ORDERABLES Final Re sult [facility] [address], [address] [place] [address], * [facility] XG CANCERNEXT AND XG+ CANCERNEXT-EXPANDED (06/02/2024 2:07 PM CDT) [facility] [id number] [id number] 06/25/2024 5:32 PM CDT [facility] Comment:[facility] link Interpretation Report See Notes 06/25/2024 5:32 PM CDT [facility] Comment: The c.2922-1G>A likely pathogenic variant in the SHANEL gene was detected in this individual's sample (see COMMENT).COMMENT: It is expected that the DNA isolated from peripheral blood lymphocytes or saliva would be sales representative groceries of an individual's germline DNA; however, the current methodology cannot definitively determine whether the results reported herein represent an alteration of germline versus somatic origin or are the result of technical interference. Somatic alterations may be detected in blood or saliva for a variety of reasons, including but not limited to: clonal hematopoiesis of indeterminate potential (CHIP)1, acquired aberrant clonal expansion (CINDY)2, secondary to chemotherapy3, hematologic malignancy/pre-malignancy4, or circulating tumor cells (CTCs)5. The current methodology cannot differentiate amongst these possibilities nor quantify the degree of heterogeneity and if other tissues, including the germline of this individual, are affected. Clinical correlation is advised. 1Gsteffen Stallworth et al. N Engl J Med. 2014; 371:2477-26301Logtqspd L et al. Yoselyn Trang. 2017; 18: 128-1423Swtara EM et al. KAJAL Oncol. 2016 May;2(3):370-24Welcteresa JS et al. Cell. 2012 Sep 19;150(2):264-78.5Haber D et al. Cancer Discov. 2014 Seth;4(6):650-61 Complimentary testing of both biological parents, if available, and biological children is available through our laboratory and may help to clarify the origin and significance of the pathogenic, likely pathogenic or moderate risk finding in this individual. Please contact [phone] and ask to speak to a designated cancer genetic counselor for additional information.The expression and severity of disease for this individual cannot be predicted.Genetic counseling is a recommended option for all individuals undergoing genetic testing. 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 Refer to the supplementary pages for additional information on this variant. No additional pathogenic mutations, variants of unknown significance, or gross deletions or duplications were detected. Genes Analyzed (76 total): AIP, ALK, APC, SHANEL, BAP1, BARD1, BMPR1A, BRCA1, BRCA2, BRIP1, CDC73, CDH1, CDK4, CDKN1B, CDKN2A, CEBPA, CHEK2, DICER1, ETV6, FH, FLCN, GATA2, LZTR1, MAX, MEN1, MET, MLH1, MSH2, MSH6, MUTYH, NF1, NF2, NTHL1, PALB2, PHOX2B, PMS2, POT1, RJGCK1P, PTCH1, PTEN, RAD51C, RAD51D, RB1, RET, RUNX1, SDHA, SDHAF2, SDHB, SDHC, SDHD, SMAD4, SMARCA4, SMARCB1, SMARCE1, STK11, SUFU, DOUZ194, TP53, TSC1, TSC2, VHL and WT1 (sequencing and deletion/duplication); AXIN2, CTNNA1, DDX41, EGFR, HOXB13, KIT, MBD4, MITF, MSH3, PDGFRA, POLD1 and POLE (sequencing only); EPCAM and GREM1 (deletion/duplication only). Overall Interpretation Likely Pathogenic Variant Detected (see COMMENT) 06/25/2024 5:32 PM CDT [facility] Genes analyzed APC, SHANEL, BARD1, BMPR1A, BRIP1, CDH1, CDKN2A, CHEK2, DICER1, EPCAM, MAX, MEN1,MLH1, MSH2, MSH6, MUTYH, PALB2, PHOX2B, PMS2, PTCH1, PTEN, RAD51C, RAD51D, RB1,RET, SDHA, SDHAF2, SDHB, SDHC, SDHD, SMAD4, STK11, HJQX280, TP53, VHL, FLCN,CDK4, NF1, BRCA1, BRCA2, FH, TSC1, TSC2, ALK, RUNX1, CDKN1B, CEBPA, ETV6,GATA2, MET, NF2, NTHL1, APDBY9D, SMARCA4, SMARCB1, SMARCE1, WT1, LZTR1, BAP1,AIP, POT1, GREM1, SUFU, CDC73, CTNNA1, EGFR, KIT, MITF, MSH3, PDGFRA, POLD1,POLE, AXIN2, MBD4, HOXB13, DDX41 06/25/2024 5:32 PM CDT [facility] Blood Collection / Unknown 06/02/2024 2:07 PM CDT 06/02/2024 2:12 PM CDT Narrative This result has genomic variants that were not included in this document. Tristan Jade HUMAN RESOURCES MANAGER [employer]UFACTURING MOLECULAR ORDERABLES Edited Re sult - Final Performing Organization Address City/[facility]/ZIP Co de Phone Number [facility] [address], [address] [place] [address], * (ABNORMAL) CANCER ANTIGEN 19-9 (06/02/2024 2:03 PM CDT) Pathologist [facility] CA 19-9 2462(H) <34 U/mL [facility] Comment: This test was performed using the Siemens chemiluminescent method. Values obtained from different assay methods cannot be used interchangeably. CA 19-9 levels, regardless of value, should not be interpreted as absolute evidence of the presence or absence of disease. Test Performed at: [facility] [address] [place] [address] Barry Rodriguez MD Blood 06/02/2024 2:03 PM CDT 06/02/2024 2:10 PM CDT Zehra Smith MD CHEMISTRY ORDERABLES Final Re sult [facility] [phone] [facility] [address] [place] [address] * (ABNORMAL) CEA (06/02/2024 2:03 PM CDT) Pathologist [facility] CEA 3.4(H) See Note: ng/mL [facility] Comment: Reference Range: Non-Smoker: <2.5 Smoker: <5.0 This test was performed using the Siemens chemiluminescent method. Values obtained from different assay methods cannot be used interchangeably. CEA levels, regardless of value, should not be interpreted as absolute evidence of the presence or absence of disease. Test Performed at: [facility] [id number] [place] [phone] Barry Rodriguez MD Blood 06/02/2024 2:03 PM CDT 06/02/2024 2:10 PM CDT Zehra Smith MD CHEMISTRY ORDERABLES Final Re sult Performing Organization Address [facility] Co de Phone Number [facility] [phone] [facility] [address] * [facility] X[facility] NORMAL BLOOD (06/02/2024 1:55 PM CDT) Pathologist [facility] 06/02/2024 11:01 PM CDT [facility] Comment:See NGS Report for R esults. Blood specimen (specimen) 06/02/2024 1:55 PM CDT 06/02/2024 1:56 PM CDT Zehra Smith MD MOLECULAR ORDERABLES Final Re sult Performing Organization Address [facility] Co de Phone Number [facility] [address], [address] [place] [address], [facility] [address], [address] [place] [address] * ANAEROBIC/AEROBIC CULTURE W GRAM STAIN (05/29/2024 11:54 AM CDT) Pathologist [facility] CULTURE No aerobic or anaerobic growth 06/03/2024 12:02 PM CDT [facility] GRAM STAIN No organisms observed 06/03/2024 12:02 PM CDT [facility] GRAM STAIN 2+ (Few) Polymorphonuclear WBC 06/03/2024 12:02 PM CDT [facility]ORY SERVICES - [facility] Body fluid ENTIRE SEROUS MEMBRANE OF PERITONEUM / Unknown Collection / Unknown 05/29/2024 11:54 AM CDT 05/29/2024 12:01 PM CDT us Joaquin Wynn MD MICROBIOLOGY - GENERAL ORD ERABLES Final Result [facility] SERVICES - [facility] CLIA# [id number] [address] [place], [place] [address] * CELL COUNT WITH DIFFERENTIAL, BODY FLUID (05/29/2024 11:54 AM CDT) APPEARANCE, BODY FLUID Slightly Cloudy 05/29/2024 1:13 PM CDT [facility] SERVICES - . [facility] COLOR, FLD Yellow 05/29/2024 1:13 PM CDT [facility] SERVICES - . [facility] TOTAL NUCLEATED CELLS, FLD (AUTO) 234 No Ref Range Estab /ul 05/29/2024 1:13 PM CDT [facility] SERVICES - . [facility] TOTAL RBC'S, FLD (AUTO) <1,000 No Ref Range Estab /ul 05/29/2024 1:13 PM CDT [facility] SERVICES - . [facility] NEUTROPHILS, FLD 4 No Ref Range Estab % 05/29/2024 1:13 PM CDT [facility] SERVICES - . [facility] LYMPHOCYTE, FLD 54 No Ref Range Estab % 05/29/2024 1:13 PM CDT [facility] SERVICES - . [facility] MONOCYTE/MACROP CIERRA, FLD 40 No Ref Range Estab % 05/29/2024 1:13 PM CDT [facility] SERVICES - . [facility] MESOTHELIAL FLD 2 No Ref Range Estab % 05/29/2024 1:13 PM CDT [facility] SERVICES - . [facility] Body fluid ENTIRE SEROUS MEMBRANE OF PERITONEUM / Unknown Collection / Unknown 05/29/2024 11:54 AM CDT 05/29/2024 12:01 PM CDT us Joaquin Wynn MD BODY FLUIDS AND STOOLS Fin al Result [facility] [employer] [facility] [id number] [address] [place] [address] * PROTEIN, BODY FLUID (05/29/2024 11:54 AM CDT) PROTEIN, FLD 1.4 g/dL 05/29/2024 12:29 PM CDT [facility] [employer] [facility] Body fluid ENTIRE SEROUS MEMBRANE OF PERITONEUM / Unknown Collection / Unknown 05/29/2024 11:54 AM CDT 05/29/2024 12:01 PM CDT [facility] [employer] [facility] - 05/29/2024 12:29 PM CDT Interpretive Criteria: Transudate: <2.0 g/dL Exudate: >2.0 g/dL The reference range and other method performance specifications are unavailable for this body fluid. Comparison of this result with the concentration in the blood, serum, or plasma is recommended. Joaquin Wynn MD BODY FLUIDS AND STOOLS Fin al Result Performing Organization Address City/[facility]/ZIP Co de Phone Number [facility] [employer] [facility] CLIA# [id number] [address] [place] [address] * LACTATE DEHYDROGENASE, BODY FLUID (05/29/2024 11:54 AM CDT) Pathologist [facility] LD, FLD 55 U/L 05/29/2024 12:29 PM CDT [facility] [employer] [facility] Body fluid ENTIRE SEROUS MEMBRANE OF PERITONEUM / Unknown Collection / Unknown 05/29/2024 11:54 AM CDT 05/29/2024 12:01 PM CDT [facility] [employer] [facility] - 05/29/2024 12:29 PM CDT Interpretive Criteria: Transudate: < 200 U/L or Fluid/Serum Ratio < 0.6 Exudate: > 200 U/L or Fluid/Serum Ratio > 0.6 The reference range and other method performance specifications are unavailable for this body fluid. Comparison of this result with the concentration in the blood, serum or plasma is recommended. Joaquin Wynn MD BODY FLUIDS AND STOOLS Fin al Result Performing Organization Address [facility] Co de Phone Number [facility]# [id number] [address] [place] [address] * GLUCOSE, BODY FLUID (05/29/2024 11:54 AM CDT) GLUCOSE, FLD 147 mg/dL 05/29/2024 12:27 PM CDT [facility] [employer] [facility] Body fluid ENTIRE SEROUS MEMBRANE OF PERITONEUM / Unknown Collection / Unknown 05/29/2024 11:54 AM CDT 05/29/2024 12:01 PM CDT [facility] [employer] [facility] - 05/29/2024 12:27 PM CDT Interpretive Criteria: Transudate: Fluid/Serum Ratio >0.5 Exudate: Fluid/Serum Ratio <0.5 or Fluid Glucose <60 mg/dL The reference range and other method performance specifications are unavailable for this body fluid. Comparison of this result with the concentration in the blood, serum or plasma is recommended. Joaquin Wynn MD BODY FLUIDS AND STOOLS Fin al Result Performing Organization Address [facility] Co de Phone Number [facility] [employer] [facility] CLIA# [id number] [address] [place] [address] * ALBUMIN LEVEL, BODY FLUID (05/29/2024 11:54 AM CDT) ALBUMIN, FLD 0.9 g/dL 05/29/2024 12:29 PM CDT [facility] [employer] [facility] Body fluid ENTIRE SEROUS MEMBRANE OF PERITONEUM / Unknown Collection / Unknown 05/29/2024 11:54 AM CDT 05/29/2024 12:01 PM CDT [facility] [employer] [facility] - 05/29/2024 12:29 PM CDT Interpretive Criteria: Transudate: Serum-Ascites gradient >1.1 g/dL Exudate: Serum-Ascites gradient <1.1 g/dL The reference range and other method performance specifications are unavailable for this body fluid. Comparison of this result with the concentration in the blood, serum or plasma is recommended. us Joaquin Wynn MD BODY FLUIDS AND STOOLS Fin al Result [facility]# [id number] [address] [place] [address] * CYTOLOGY, NON GYNE (05/29/2024 11:54 AM CDT) CASE REPORT Medical Cytology Rep ort Case: [id number] Authorizing Provider: Joaquin Wynn MD Collected: 05/29/2024 11:54 AM Ordering Location: [facility] Received: 05/31/2024 06:40 AM Oncology Pathologist: Jacy Herman MD Specimen: Peritoneal (ascitic) fluid 10:25 AM CDT [facility] FINAL DIAGNOSIS Peritoneal fluid, cytologic examination: - Rare atypical cells present. - Cell block confirms the cytologic diagnosis. See comment. 10:25 AM T [facility] at 1025 CDT GROSS DESCRIPTION Received is a container labeled Yoli Dorisximena Chun and peritoneal fluid. It contains 1000 mL of opaque yellow fluid. One ThinPrep and 1 cellblock made. JM 10:25 AM CDT [facility] MICROSCOPIC DESCRIPTION The slides are labeled [id number] and Yoli Chun. The patient's history of pancreatic adenocarcinoma is noted ([id number]). Microscopic examination shows mesothelial cells and macrophages and very rare enlarged epithelioid cells with prominent nucleoli, present on the ThinPrep. This population is inapparent on the cell block. No atypical population is identified via Kiran-EP4, MOC-31, CK20, GATA3, CDX2, and/or mucicarmine staining. CK7 and CK5/6 highlight the mesothelial population. There are more CK7 positive cells present than CK5/6 positive cells however this population is not otherwise immunohistochemically or morphologically distinct. Serial submission of fluid may increase the diagnostic yield. 10:25 AM CDT [facility] OPERATIVE PROCEDURE Paracentesis 10:25 AM CDT [facility] CLINICAL INFORMATION Not specified 10:25 AM CDT [facility] COMMENT Special stain, immunohistochemical, and/or in situ hybridization results are interpreted with controls that demonstrate appropriate staining reactions. Note on use of immunohistochemistry reagents and in situ hybridization probes: These tests were developed and their performance characteristics determined by [facility], Department of Laboratory Medicine. It has not been cleared or approved by the U.S. Food and Drug Administration. The FDA has determined that such clearance or approval is not necessary. The test is used for clinical purposes. It should not be regarded as investigational or for research. This laboratory is certified to perform high complexity testing. Cases may have been signed out in part or completely in the following laboratories: [facility], CLIA #[id number] [address] [place] [id number] [place] [address]/[facility], CLIA #[id number] [address] [place] [address]. 10:25 AM CDT [facility] Body fluid ASCITIC FLUID SPECIMEN / Unknown Collection / Unknown 05/29/2024 11:54 AM CDT 05/31/2024 6:40 AM CDT us Joaquin Wynn MD PATHOLOGY/CYTOLOGY ORDERAB LES Final Result [facility] CLIA# [id number] [address] [place] [address] * (ABNORMAL) PROTIME-INR (05/29/2024 10:05 AM CDT) Pathologist [facility] PROTIME 18.0(H) 12.7 - 15.1 Seconds 05/29/2024 10:38 AM CDT [facility] INR 1.5(H) 0.9 - 1.1 05/29/2024 10:38 AM CDT [facility] Blood Venipuncture / Unknown 05/29/2024 10:05 AM CDT 05/29/2024 10:15 AM CDT [facility] - 05/29/2024 10:38 AM CDT INR Therapeutic Range: Adult: 2.0 - 3.0 for pulmonary embolism or prophylaxis against venous thrombosis or systemic embolization. 2.0 - 3.0 for patients with tissue heart valves. 2.5 - 3.5 for patients with mechanical heart valves or post CA. Pediatric (12 years and under): 1.5 - 3.0 Although the target range in children is not well established, INR values of 1.5 - 3.0 are recommended for most patients. Higher values have been used in children with prosthetic cardiac valves and hereditary clotting disorders. [place] (<3 days) therapeutic ranges have not been established. Latoya Archibald DO HEMATOLOGY ORDERABLES Irina foley Result [facility]# [id number] [address] [place] [id number] * C. DIFFICILE DETECTION (05/29/2024 8:34 AM CDT) [facility] TOXIGENIC C DIFFICILE NOT DETECTED Not Detected 05/29/2024 10:10 AM CDT [facility] Stool STOOL SPECIMEN / Unknown Collection / Unknown 05/29/2024 8:34 AM CDT 05/29/2024 8:40 AM CDT [facility] - 05/29/2024 10:10 AM CDT This assay is used to detect Toxigenic C. difficile target(B gene) DNA sequences in unformed stool specimens. If toxigenic C. difficile is not detected, but clinical suspicion is high please consult ID for consultation and potential repeat testing. This test should not be used as a test of cure. Justin Mckeon MD MICROBIOLOGY - GENERAL ORDERABLE S Final Result [facility] LABORATORY SERVICES [facility]# [id number] [address] [place] [address] * CTA CHEST + ABD/PEL W CONTRAST (05/28/2024 7:24 PM CDT) Anatomical Region Laterality Modality Chest, Abdomen, Pelvis Computed Tomography 05/28/2024 7:25 PM CDT Impressions 05/28/2024 8:19 PM CDT IMPRESSION: 1. Hypodense mass in the head of the pancreas which has increased in size and is consistent with patient's known pancreatic neoplasm. There is upstream pancreatic ductal dilatation and pancreatic atrophy. 2. New hepatic hypodensities, most consistent with metastasis. 3. New moderate/large ascites. 4. Placement of common bile duct stent with pneumobilia. 5. Thickening of the ascending colon which is new and may be reactive with a colitis not excluded. 6. Small bilateral pleural effusions and bibasilar atelectasis, new. 7. No pulmonary embolus. 8. For remaining findings please read report. DICTATION LOCATION: Location 1 - [facility] Narrative 05/28/2024 8:19 PM CDT CTA CHEST + ABD/PEL W CONTRAST DATE: 05/28/2024 7:24 PM HISTORY: Pancreatic cancer. Abdominal pain and shortness of breath. COMPARISON: 03/19/2024. TECHNIQUE: Contiguous axial CT images were obtained of the chest, abdomen and pelvis with contrast. Images were reconstructed in the sagittal and coronal plane and MIP images were also obtained per the CTA protocol. The examination was performed with the adjustment of mA according to the patient size and/or the use of Iterative Reconstruction Technique. CONTRAST: IOPAMIDOL 61 % INTRAVENOUS SOLUTION (MULTI-DOSE BULK PACK) Given:100 mL FINDINGS: CHEST: Lungs: A 4.5 cm bulla within the right upper lung which is measuring mildly decreased in size. Small bilateral pleural effusions, new. No pulmonary embolus. There are new bibasilar opacities which are greatest within the lower lobes and is most consistent with atelectasis. Pneumonia is felt to be unlikely. Lower Neck/Axilla:No appreciable abnormality. Mediastinum/Nikkie: No significant lymphadenopathy. Small hiatal hernia which has increased with new infiltration and ill-defined fluid in the herniated fat. Cardiovascular: Heart size is normal. Subjective Evaluation of Coronary Artery Calcification: Moderate/severe. Musculoskeletal/Soft Tissues: No acute osseous abnormality. ABDOMEN/PELVIS: Liver: A new 18 mm hypodense lesion within segment 6/7 and a 8 mm hypodensity within segment seven which would be concerning for metastasis. A new 12 mm hypodensity within segment one and a 9 mm hypodensity in segment seven, also likely due to metastasis. Gallbladder: There has been interval placement of a common bile duct stent with pneumobilia. Mild gallbladder wall thickening, likely reactive. Stomach/Duodenum: Mild thickening of the stomach as well as duodenum, likely reactive with a duodenitis not entirely excluded. Pancreas: A 2.8 cm x 2.0 cm hypodense mass in the head of the pancreas which is increased in size previously measuring 15 mm x 1.2 cm. There is upstream pancreatic ductal dilatation and atrophy of the pancreatic tail. This is consistent with patient's known pancreatic neoplasm. There is some mild adjacent ill-defined hypoattenuation which abuts and narrows the portal confluence and is similar to the prior exam. Spleen: A 2.1 cm splenic hypodensity which is most likely a cyst. Adrenal Glands: Normal. Kidneys/Bladder: Normal. Aorta/Vascular: No abdominal aortic aneurysm. Mild atherosclerosis. Reproductive: No appreciable abnormality. Bowel: Mild thickening of the ascending colon which is likely reactive with a colitis not entirely excluded. This is new since the prior exam. Appendix is not visualized. There are thickened and decompressed loops of small bowel throughout the abdomen, likely lack of distention and reactive changes. Peritoneum/Mesentery: Moderate/large abdominal pelvic ascites which is new. Lymph Nodes: No significant lymphadenopathy identified. Musculoskeletal/Soft Tissues: No acute osseous abnormality. Procedure Note Reginald Vargas MD - 05/28/2024 CTA CHEST + ABD/PEL W CONTRAST DATE: 05/28/2024 7:24 PM HISTORY: Pancreatic cancer. Abdominal pain and shortness of breath. COMPARISON: 03/19/2024. TECHNIQUE: Contiguous axial CT images were obtained of the chest, abdomen and pelvis with contrast. Images were reconstructed in the sagittal and coronal plane and MIP images were also obtained per the CTA protocol. The examination was performed with the adjustment of mA according to the patient size and/or the use of Iterative Reconstruction Technique. CONTRAST: IOPAMIDOL 61 % INTRAVENOUS SOLUTION (MULTI-DOSE BULK PACK) Given:100 mL FINDINGS: CHEST: Lungs: A 4.5 cm bulla within the right upper lung which is measuring mildly decreased in size. Small bilateral pleural effusions, new. No pulmonary embolus. There are new bibasilar opacities which are greatest within the lower lobes and is most consistent with atelectasis. Pneumonia is felt to be unlikely. Lower Neck/Axilla:No appreciable abnormality. Mediastinum/Nikkie: No significant lymphadenopathy. Small hiatal hernia which has increased with new infiltration and ill-defined fluid in the herniated fat. Cardiovascular: Heart size is normal. Subjective Evaluation of Coronary Artery Calcification: Moderate/severe. Musculoskeletal/Soft Tissues: No acute osseous abnormality. ABDOMEN/PELVIS: Liver: A new 18 mm hypodense lesion within segment 6/7 and a 8 mm hypodensity within segment seven which would be concerning for metastasis. A new 12 mm hypodensity within segment one and a 9 mm hypodensity in segment seven, also likely due to metastasis. Gallbladder: There has been interval placement of a common bile duct stent with pneumobilia. Mild gallbladder wall thickening, likely reactive. Stomach/Duodenum: Mild thickening of the stomach as well as duodenum, likely reactive with a duodenitis not entirely excluded. Pancreas: A 2.8 cm x 2.0 cm hypodense mass in the head of the pancreas which is increased in size previously measuring 15 mm x 1.2 cm. There is upstream pancreatic ductal dilatation and atrophy of the pancreatic tail. This is consistent with patient's known pancreatic neoplasm. There is some mild adjacent ill-defined hypoattenuation which abuts and narrows the portal confluence and is similar to the prior exam. Spleen: A 2.1 cm splenic hypodensity which is most likely a cyst. Adrenal Glands: Normal. Kidneys/Bladder: Normal. Aorta/Vascular: No abdominal aortic aneurysm. Mild atherosclerosis. Reproductive: No appreciable abnormality. Bowel: Mild thickening of the ascending colon which is likely reactive with a colitis not entirely excluded. This is new since the prior exam. Appendix is not visualized. There are thickened and decompressed loops of small bowel throughout the abdomen, likely lack of distention and reactive changes. Peritoneum/Mesentery: Moderate/large abdominal pelvic ascites which is new. Lymph Nodes: No significant lymphadenopathy identified. Musculoskeletal/Soft Tissues: No acute osseous abnormality. IMPRESSION: 1. Hypodense mass in the head of the pancreas which has increased in size and is consistent with patient's known pancreatic neoplasm. There is upstream pancreatic ductal dilatation and pancreatic atrophy. 2. New hepatic hypodensities, most consistent with metastasis. 3. New moderate/large ascites. 4. Placement of common bile duct stent with pneumobilia. 5. Thickening of the ascending colon which is new and may be reactive with a colitis not excluded. 6. Small bilateral pleural effusions and bibasilar atelectasis, new. 7. No pulmonary embolus. 8. For remaining findings please read report. DICTATION LOCATION: Location 1 - [facility] Dakota Walters MD CT ORDERABLES Final Result * URINALYSIS WITH REFLEX MICROSCOPIC (05/28/2024 7:04 PM CDT) COLOR UA Yellow Pale to Dark Yellow 05/28/2024 7:52 PM CDT [facility] LABORATORY SERVICES - . [facility] CLARITY UA Clear Clear 05/28/2024 7:52 PM CDT [facility] LABORATORY SERVICES - . [facility] SPECIFIC GRAVITY UA 1.017 1.003 - 1.035 05/28/2024 7:52 PM CDT [facility] LABORATORY SERVICES - [facility] PH UA 6.0 5.0 - 8.0 05/28/2024 7:52 PM CDT [facility] LABORATORY SERVICES - . [facility] LEUKOCYTE ESTERASE UA Negative Negative 05/28/2024 7:52 PM CDT [facility] LABORATORY SERVICES - . [facility] NITRITE UA Negative Negative 05/28/2024 7:52 PM CDT [facility] LABORATORY SERVICES - . [facility] PROTEIN UA Negative Negative 05/28/2024 7:52 PM CDT [facility] LABORATORY SERVICES - . [facility] GLUCOSE UA Negative Negative 05/28/2024 7:52 PM CDT [facility] LABORATORY SERVICES - [facility] KETONES UA Negative Negative 05/28/2024 7:52 PM CDT [facility] LABORATORY SERVICES - [facility] UROBILINOGEN UA Normal <2.0 mg/dL 7:52 PM CDT [facility] LABORATORY SERVICES - [facility] BILIRUBIN UA Negative Negative 05/28/2024 7:52 PM CDT [facility] LABORATORY SERVICES - [facility] BLOOD UA Negative Negative 05/28/2024 7:52 PM CDT [facility] LABORATORY SERVICES - [facility] Urine URINE SPECIMEN OBTAINED BY CLEAN CATCH PROCEDURE / Unknown Collection / Unknown 05/28/2024 7:04 PM CDT 05/28/2024 7:09 PM CDT Yrn Thomason MD URINE ORDERABLES Irina l Result [facility] CLIA# [id number] [address] [place] [address] * (ABNORMAL) POC CREATININE (05/28/2024 6:10 PM CDT) CREATININE POC 0.40(L) 0.50 - 1.00 mg/dL 05/28/2024 6:10 PM CDT [facility] LABORATORY [facility] Comment:The GFR result is no t clinically significant on patients <18 or >70 years of age. GFR POC >60 mL/min/1.7 3 sq meter 05/28/2024 6:10 PM CDT [facility] LABORATORY [facility] Comment:eGFR calculated with 2020 CKD-EPI equation. Vegetarian diet, extremely high or low muscle mass, and may affect results. Cystatin C with Glomerular Filtration Rate is a suitable alternative for these patients. Blood, whole 05/28/2024 6:10 PM CDT 05/28/2024 6:14 PM CDT Yrn Thomason MD POINT OF CARE TESTING Final Result [facility] CLIA# [id number] [address] [place] [address] * (ABNORMAL) C-REACTIVE PROTEIN (05/28/2024 6:03 PM CDT) CRP 45.2(H) <5.0 mg/L 05/28/2024 7:30 PM CDT [facility] LABORATORY [facility] Blood Venipuncture / Unknown 05/28/2024 6:03 PM CDT 05/28/2024 6:24 PM CDT Yrn Thomason MD CHEMISTRY ORDERABLES Final Result [facility]# [id number] [address] [place] [address] * PHOSPHORUS (05/28/2024 6:03 PM CDT) Pathologist [facility] PHOSPHORUS 2.5 2.5 - 4.5 mg/dL 05/28/2024 10:26 PM CDT [facility] [employer] [facility] Blood Venipuncture / Unknown 05/28/2024 6:03 PM CDT 05/28/2024 6:24 PM CDT Dorian Noble MD CHEMISTRY ORDERABLES Final Resul t [facility] [employer] [facility]# [id number] [address] [place] [address] * MAGNESIUM LEVEL (05/28/2024 6:03 PM CDT) MAGNESIUM 1.6 1.6 - 2.4 mg/dL 05/28/2024 10:26 PM CDT [facility] [employer] [facility] Blood Venipuncture / Unknown 05/28/2024 6:03 PM CDT 05/28/2024 6:24 PM CDT Dorian Noble MD CHEMISTRY ORDERABLES Final Resul t Performing Organization Address City/[facility]/ZIP Co de Phone Number [facility]# [id number] [address] [facility] [address] * (ABNORMAL) LIPASE (05/28/2024 6:03 PM CDT) LIPASE 7(L) 13 - 60 U/L 05/28/2024 7:30 PM CDT [facility] Blood Venipuncture / Unknown 05/28/2024 6:03 PM CDT 05/28/2024 6:24 PM CDT Dakota Walters MD CHEMISTRY ORDERABLES Final R esult Performing Organization Address City/[facility]/ZIP Co de Phone Number [facility] CLIA# [id number] [address] [place], [place] [address] [address] * EKG 12-LEAD (05/28/2024 4:47 PM CDT) 05/28/2024 4:47 PM CDT Narrative INTERFACE SYSTEM - 05/29/2024 4:09 PM CDT [address] [address] Test Date: 2024-05-28 Pat Name: YOLI CHUN Department: 37 Room: 53 Gender: Female 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 : 1950 Requested By: Order Number: [id number] Toni MD: Vasquez Florence Measurements Intervals [place] Rate: 92 P: 30 UT: 174 QRS: 26 QRSD: 95 T: 9 QT: 384 QTc: 476 Interpretive Statements Sinus rhythm Low voltage, precordial leads Borderline T abnormalities, anterior leads Electronically Signed On 05-29-2024 16:09:42 CDT by Vasquez Florence Procedure Note Provider, Historical - 05/29/[address] [address] Test Date: 2024-05-28 Pat Name: YOLI CHUN Department: 37 Room: 5368 Gender: Female 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 : 1950 Requested By: Order Number: [id number] Reading MD: Vasquez Florence Measurements Intervals [place] Rate: 92 P: 30 UT: 174 QRS: 26 QRSD: 95 T: 9 QT: 384 QTc: 476 Interpretive Statements Sinus rhythm Low voltage, precordial leads Borderline T abnormalities, anterior leads Electronically Signed On 05-29-2024 16:09:42 CDT by Vasquez Florence us Dakota Walters MD ECG ORDERABLES Final Result INTERFACE SYSTEM Refer to clinic/hospital department * ERCP REPORT (05/13/2024 11:07 AM CDT) Narrative Procedure Note Reginald Slater MD - 05/13/2024 11:07 AM CDT [facility] Endoscopy Patient Name: Yoli Chun Procedure Date: 05/13/2024 Date of : [...] Loss: Estimated blood loss: none. Findings: The test automation architect film was normal. The esophagus was successfully [...] of Addenda: [address]; [place] [address] Reginald Slater MD GI PROCEDURE ORDERABLES Irina l Result * XR ERCP BILIARY AND PANCREATIC (05/13/2024 10:58 AM CDT) Anatomical Region Laterality Modality Abdomen Computed Radiogr aphy 05/13/2024 10:5 9 AM CDT Impressions 05/14/2024 10:38 PM CDT IMPRESSION: Intraoperative fluoroscopy. Please refer to the dedicated operative report for further details. DICTATION LOCATION: Location [address] [place] [address] Narrative 05/14/2024 10:38 PM CDT EXAM: XR ERCP [...] report for further details. 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 AVG GLUCOSE, A1C 180 mg/dL 11/15/2023 4:59 PM CDT [facility] LABORATORY [facility] Blood Venipuncture / Unknown 11/15/2023 4:02 PM CDT 11/15/2023 4:32 PM CDT Narrative [facility] LABORATORY [facility] - 11/15/2023 4:59 PM CDT HGB A1C INTERPRETATION NORMAL: <5.7% PRE-DIABETES: 5.7 - 6.4% DIABETES: 6.5% OR GREATER Jay Cabrera MD CHEMISTRY ORDERABLES Final Res ult [facility] [employer] [facility] [employer]# [id number] [facility] [address] from Last 3 Months or Most Recently Relevant to Health Maintenance Insurance RX MEDIMPACT Member Subscriber Plan / Payer (Ef fective for All Dates) Name:Yoli Chun Relation to Subscriber:Self Name:Yoli Chun Payer ID:Not on file Group ID:[id number] Type:RX Medicare Part D Address: [address] RX [employer] PLANS (INTERNAL) [facility] [employer] RX MEDIMPACT Member Subscriber Plan / Payer (Ef fective 2016-Present) Name:Yoli Chun Relation to Subscriber:Self Name:Yoli Chun Payer ID:Not on file Group ID:[id number] Type:RX Medicare Part D Address: [address] Advance Directives For more information, please contact: [phone] * Full Code (Latest Code Status on File) Date Activated Date Inactivated Comments 05/28/2024 11:12 PM 05/29/2024 7:03 PM * Default Full Code - Needs Discussion Date Activated Date Inactivated Comments 05/28/2024 10:04 PM 05/28/2024 11:12 PM * Full Code Date Activated Date Inactivated Comments 05/13/2024 10:13 AM 05/13/2024 2:48 PM * Full Code Date Activated Date Inactivated Comments 11/15/2023 12:03 PM 11/17/2023 5:14 PM
--- OUTSIDE RECORDS SUMMARY | 2024-08-10 17:28 | XMS_ITS | Referral Summary ---
Author Organization [facility] [facility] Address [address] [place] [phone] Care Team Providers Care Vp Account Director Name Role Phone Jyoti Edge Primary Care Provider [phone]- [phone] Encounters Date Type Department Care Team Description 06/25/2024 ACO Clinical Pharmacist [facility] Care Organization [address] [place] [phone] Elizabeth Lancaster Formerly [facility] 06/21/2024 3:30 PM CDT Office Visit [address] [address] Jyoti Edge PA Malignant neoplasm of head of pancreas (HCC) (Primary Dx); Type 2 diabetes mellitus with hyperlipidemia (HCC); Controlled type 2 diabetes mellitus without complication, without long-term current use of insulin (HCC); Frailty; BMI 20.0-20.9, adult 06/04/2024 Results Follow-Up [address] [place] [phone] Jyoti Edge PA Lipid panel, Hemoglobin A1c, TSH, Albumin Creatinine Ratio, Urine 06/04/2024 Results Follow-Up [address] [place] [phone] Jyoti Edge PA Urine culture Urine, clean voided 06/03/2024 1:15 PM CDT Clinical Support [address] [place] [phone] Dysuria (Primary Dx) 06/01/2024 MAI IP Outreach [facility] Accountable Care Organization [address] [place] [phone] Marisela Bran CMA 05/26/2024 Orders Only [place] [id number] [facility] [address] [place] [address] Jyoti Edge PA Type 2 diabetes mellitus with hyperlipidemia (HCC) (Primary Dx); Fatigue, unspecified type 05/26/2024 Telephone [facility] [address] [place] [address] [address] [place] [address] Jyoti Edge PA Additional Services Or Orders 05/15/2024 Results Follow-Up [address] [place] [address] Jyoti Edge PA Urine culture Urine, clean voided 05/12/2024 9:00 AM CDT Clinical Support [facility] [address] [facility] [address] [place] [address] Urinary tract infection without hematuria, site unspecified (Primary Dx) 05/11/[address] [place] [address] Jyoti Edge PA from Last 3 Months Allergies Active Allergy [...] 04/18/2024 Assessment & Plan (04/18/2024 4:04 PM TAR MAN): Check urine and culture today Gross hematuria 04/18/2024 Assessment & Plan (04/18/2024 4:01 PM TAR MAN): Patient was started on Bactrim. Has not completely it it yet it looks as though it is sensitive. Had a cystoscope by [facility] which was essentially normal. Recommend to [...] 12/14/2023 Assessment & Plan (04/18/2024 4:01 PM TAR MAN): Continue Remeron 7.5 for depression as well as helping with appetite Assessment & Plan (04/04/2024 8:39 PM TAR MAN): Patient's appetite is down and mood is [...] 12/14/2023 Assessment & Plan (04/04/2024 8:39 PM TAR MAN): Patient's appetite is down and mood is [...] oncology Assessment & Plan (04/18/2024 4:02 PM TAR MAN): Continue per [facility] for pancreatic cancer management. She is awaiting lab results to determine next step in her treatment plan Assessment & Plan (04/04/2024 8:36 PM TAR MAN): Newer diagnosis of pancreatic cancer. Continue to follow with [facility] as they are managing her currently. Assessment & Plan (12/14/2023 12:16 AM CDT): New diagnosis of pancreatic cancer Continue per the [facility] group 0 coordinating her care. Will await [...] <7 Assessment & Plan (04/18/2024 4:03 PM TAR MAN): A1c in the office today was 6.0. This is without any medication. I discussed medication with patient but currently with all of the other treatment she is undergoing I recommend continuing diet management. Will continue to monitor closely and if she has random sugars at home that are running over 300 she is to call. Assessment & Plan (04/04/2024 8:37 PM TAR MAN): Stressed importance of continued A1c control to minimize the penitentiary effects of diabetes. 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 Bring accuchecks to office [...] lifestyle Assessment & Plan (04/18/2024 4:03 PM TAR MAN): Patient continues with weight loss. She has known pancreatic cancer. Will see if the Remeron begins to perk her appetite. Encouraged increased protein and overall calories. Assessment & Plan (03/26/2024 9:14 AM TAR MAN): Weight/BMI is in healthy range. Continue healthy [...] 10/20/2018 Assessment & Plan (05/03/2022 1:32 PM TAR MAN): Check DEXA Assessment & Plan (01/17/2020 12:01 PM TAR MAN): Check DXA Assessment & Plan (10/20/2018 10:18 PM CDT): Check DXA Vitamin D deficiency 06/17/2018 Assessment & Plan (12/14/2023 12:16 AM CDT): Supplement Assessment & Plan (05/03/2023 11:12 PM TAR MAN): Supplement vitamin-D Assessment & Plan (10/30/2022 8:40 AM CDT): Supplement Assessment & Plan (05/03/2022 1:31 PM TAR MAN): Supplement Assessment & Plan (11/05/2021 9:16 PM CDT): Supplement Assessment & Plan (04/27/2021 9:33 AM TAR MAN): Continue supplementation Assessment & Plan (07/17/2020 5:08 PM CDT): supplement Assessment & Plan (01/17/2020 9:32 AM TAR MAN): supplement Assessment & Plan (10/20/2018 10:16 PM CDT): Supplement Gastroesophageal reflux disease without esophagi tis 06/17/2018 Assessment & Plan (12/14/2023 12:16 AM CDT): Continue pantoprazole p.r.n. Assessment & Plan (08/24/2023 6:23 PM CDT): Continue PPI Assessment & Plan (05/03/2023 11:12 PM TAR MAN): Continue pantoprazole. Could try doubling up if [...] GI. Assessment & Plan (05/03/2022 1:31 PM TAR MAN): Continue PPI p.r.n.. Has breakthrough symptoms if she misses a day of dosing. Assessment & Plan (11/05/2021 9:16 PM CDT): Continue PPI patient try to taper and still has breakthrough symptoms Assessment & Plan (04/27/2021 9:33 AM TAR MAN): Continue pantoprazole. Try to taper dosing had breakthrough symptoms so will continue with daily dosing. Assessment & Plan (12/18/2020 9:14 AM CDT): Continue Protonix. Assessment & Plan (07/17/2020 5:09 PM CDT): Continue PPI Assessment & Plan (01/17/2020 9:31 AM TAR MAN): Stable. Using protonix 40mg bid. Recommend trying [...] intake Assessment & Plan (04/18/2024 4:01 PM TAR MAN): Patient is past due for labs. 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 Bring accuchecks to office [...] of continued A1c control to minimize the penitentiary effects of diabetes. 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 Bring accuchecks to office [...] Discussed with patient at length diabetes, pathogenesis, petroleum terminal plant operator sequela, end organ damage, diet/exercise/weight loss, and [...] feet on a regular basis to avoid penitentiary problems. Offered referral to [facility]. Decided together to start Farxiga 10mg one daily. Reviewed risks benefits alternatives side effects and proper use. Recheck CMP in 4-6 weeks. Recheck A1c in 3-4 months. Assessment & Plan (05/03/2023 11:13 PM TAR MAN): Encouraged patient to follow low fat/low chol [...] Crestor Assessment & Plan (05/03/2022 1:31 PM TAR MAN): Encouraged patient to follow low fat/low chol [...] Crestor Assessment & Plan (04/27/2021 9:33 AM TAR MAN): Encouraged patient to follow fat/low chol diet like the Mediterranean diet. Increase good fats in the diet. Increase exercise. Monitor labs as needed. Continue Crestor Assessment & Plan (07/17/2020 7:17 AM CDT): Encouraged patient to follow fat/low chol diet like the Mediterranean diet. Increase good fats in the diet. Increase exercise. Monitor labs as needed. Continue crestor Assessment & Plan (01/17/2020 12:01 PM TAR MAN): Encouraged patient to follow fat/low chol diet like the Mediterranean diet. Increase good fats in the diet. Increase exercise. Monitor labs as needed. Assessment & Plan (10/20/2018 10:16 PM CDT): Encouraged patient to continue low fat/low chol diet. Continue exercise. Increase good fats in the diet. Monitor labs as needed. Osteopenia of spine 06/17/2018 Assessment & Plan (05/03/2023 11:13 PM TAR MAN): Continue monitoring DEXA. Will plan to recheck [...] years Assessment & Plan (05/03/2022 1:32 PM TAR MAN): Continue calcium vitamin-D and exercise. Continue Evista continue to monitor DEXA Assessment & Plan (04/27/2021 9:33 AM TAR MAN): Tolerating Evista. Continue calcium vitamin-D and exercise. Next bone density will be due in May of 2022 Assessment & Plan (12/18/2020 9:14 AM CDT): Tolerating in [place] without problems. Thinks she may have a [...] blood clots. She is most interested in [place]. She is to start 1 tablet daily [...] 05/03/2023 Assessment & Plan (05/03/2023 11:12 PM TAR MAN): Patient has a skin tag on the right upper lid. It seems to be growing. Will refer to [facility] for evaluation and probable removal. Positive depression screening 04/29/2023 04/29/2023 Hyperglycemia 04/29/2023 05/03/2023 Medicare annual wellness visit, subsequent 04/29/2023 11/03/2023 Assessment & Plan (05/03/2023 11:13 PM TAR MAN): Encouraged healthy lifestyle, good nutrition and exercise. [...] 12/14/2023 Assessment & Plan (05/03/2023 11:13 PM TAR MAN): Mammogram order provided Assessment & Plan (05/03/2022 1:32 PM TAR MAN): Mammogram order provided Medicare annual wellness visit, subsequent 05/03/2022 10/30/2022 Assessment & Plan (05/03/2022 1:32 PM TAR MAN): Encouraged healthy lifestyle, good nutrition and exercise. Encouraged Calcium and Vitamin D and weight bearing exercise for bone health. Reviewed immunizations. Reviewed age appropirate screenings. Medicare Wellness Documentation is completed within the chart BMI 24.0-24.9, adult 04/29/2022 023 Assessment & Plan (04/29/2022 8:05 AM TAR MAN): Weight/BMI is in healthy range. Continue healthy lifestyle. Dysuria 02/03/2022 05/03/2022 Assessment & Plan (02/18/2022 9:14 AM TAR MAN): Recommend test of cure in 7-10 days Assessment & Plan (02/03/2022 4:52 PM TAR MAN): Recheck a UA today shows urine that [...] 05/03/2022 Assessment & Plan (02/03/2022 4:54 PM TAR MAN): Recheck a UA today shows urine that [...] 04/27/202105/02 Assessment & Plan (05/03/2022 1:32 PM TAR MAN): Patient due for colon cancer screening. Prefers Cologuard. No family history of colon cancer polyps Assessment & Plan (11/05/2021 9:20 PM CDT): Due to repeat colon cancer screening at 11 years. Patient states she received information from the GI and plans to follow-up with him to set the appointment. Assessment & Plan (04/27/2021 9:34 AM TAR MAN): Due for colon cancer screening. Prefers to follow back up with Dr. juan r Sams 04/27/2021 04/29/2023 Assessment & Plan (10/30/2022 8:42 AM CDT): Probably multifactorial. Check labs and followup to re-evaluate Assessment & Plan (11/05/2021 9:20 PM CDT): Probably multifactorial. Check labs and followup to re-evaluate Assessment & Plan (04/27/2021 9:34 AM TAR MAN): Probably multifactorial. Check labs and followup to re-evaluate Medicare annual wellness visit, subsequent 04/27/2021 11/05/2021 Assessment & Plan (04/27/2021 9:35 AM TAR MAN): Encouraged healthy lifestyle, good nutrition and exercise. Encouraged Calcium and Vitamin D and weight bearing exercise for bone health. Reviewed immunizations. Reviewed age appropirate screenings. Medicare Wellness Documentation is completed within the chart BMI 24.0-24.9, adult 04/25/2021 024 Assessment & Plan (08/14/2023 7:53 AM CDT): Weight/BMI is in healthy range. Continue healthy lifestyle to maintain. Assessment & Plan (05/03/2023 11:13 PM TAR MAN): Weight/BMI is in healthy range. Continue healthy lifestyle to maintain. Assessment & Plan (11/05/2021 9:20 PM CDT): Weight/BMI is in healthy range. Continue healthy lifestyle to maintain. Weight/BMI is in healthy range. Continue healthy lifestyle to maintain. Assessment & Plan (04/25/2021 8:13 AM TAR MAN): Weight/BMI is in healthy range. Continue healthy [...] diabetes. Assessment & Plan (04/27/2021 9:34 AM TAR MAN): Pre-diabetes/hyperglycemia is a precursor to Dm. Stressed [...] diabetes. Assessment & Plan (01/17/2020 12:03 PM TAR MAN): Recheck labs Other fatigue 01/17/2020 07/17/2020 Assessment & Plan (01/17/2020 12:03 PM TAR MAN): Probably multifactorial. Check labs and followup to re-evaluate Medicare annual wellness visit, subsequent 01/16/2020 07/17/2020 Assessment & Plan (01/17/2020 12:02 PM TAR MAN): Encouraged healthy lifestyle, good nutrition and exercise. Encouraged Calcium and Vitamin D and weight bearing exercise for bone health. Reviewed immunizations. Reviewed age appropirate screenings. Medicare Wellness Documentation is completed within the chart Wart 04/09/2019 12/14/2023 Assessment & Plan (04/09/2019 12:05 PM TAR MAN): Pt reassure this is a benign lesion. Eustachian tube disorder 04/05/2019 Assessment & Plan (04/05/2019 11:19 PM TAR MAN): Start antihistamine, Mucinex and Steroid nasal spray. [...] aware. Assessment & Plan (04/27/2021 9:34 AM TAR MAN): Awaiting evaluation by Dermatology. Has appointment in May Assessment & Plan (12/18/2020 9:17 AM CDT): Patient is noting skin lesions changing her face and back. Will refer to Derm. Assessment & Plan (04/05/2019 11:21 PM TAR MAN): Reviewed procedure with patient including process, possible [...] problems. Await pathology. BMI 23.0-23.9, adult 10/20/2018 05/17/2 021 Assessment & Plan (01/17/2020 12:02 PM TAR MAN): Weight/BMI is in healthy range. Continue healthy lifestyle to maintain. Assessment & Plan (04/05/2019 10:47 AM TAR MAN): Weight/BMI is in healthy range. Continue healthy [...] oral antihistamine and eye antihistamine. Patient prefers tsuj-[id number]-zufguim product like Zaditor monitor. Pre-diabetes 06/17/2018 01/17/2020 Assessment & Plan (01/17/2020 12:02 PM TAR MAN): Pre-diabetes is a precursor to Dm. Stressed [...] Immunization Administration Dates Next Due COVID-19 mRNA (Blink Messenger) 0.3 m L (30 mcg) vaccine (12 years and up) 11/05/2023 Influenza, Quad, Adjuvantate d, Intramuscular 12/03/2022,12/05/2021,12/06/2019 Influenza, Quadrivalent, Hig h Dose, Preservative Free, Intrr 12/18/2020 Influenza, Trivalent, Adjuva nted, Intramuscular 12/18/2023 Influenza, Trivalent, High D ose, Split, Preservative Free, Intramuscular 12/01/2018 Influenza, Unspecified 12/03/2022,2021,01/20/2020,01/01,12/01/2017(Deferred: Patient Refused) Schedulicity SARS-CoV-2 Monovalent Vaccination (12+ Yrs) PURPLE 12/03/2022 [...] on file Legal Sex Female 5:48 PM TAR MAN Gender Identity Not on file Sexual Orientation Not on file 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 Not on file [...] 06/21/2024 3:42 PM CDT Plan of Treatment Not on file Procedures [...] STOOL DNA COLOGUARD Routine 05/07/2022 8:00 AM TAR MAN Colon cancer screening COLONOSCOPY Routine 05/03/2011 from Last 3 Months or Most Recently Relevant to Health Maintenance Results * (ABNORMAL) POCT urinalysis dipstick (06/03/2024 1:19 PM CDT) Glucose, ur, POC Negative Negative MG/DL Bilirubin, ur, POC Moderate Negative, Small, Moderate, Large Ketones, ur, POC 160.(A) Negative Specific [place], POC 1.020 1.003 - 1.030 Blood, ur, POC Large(A) Negative pH, ur, POC 6.5 5.0 - 8.0 Protein, ur, POC 300.(A) Negative Urobilinogen, urine, POC 2.0(A) 0.2 - 1.0 mg/dL Nitrite, ur, POC Negative Negative Leukocytes, ur, POC Large(A) Negative Lot Number [id number] Urine 06/03/2024 1:19 PM CDT Jyoti ZULETA POINT OF CARE TEST ORDERAB LES Final Result * (ABNORMAL) Urine culture Urine, clean voided (06/03/2024 1:18 PM CDT) Urine culture (A) [facility] Comment: CULTURE, URINE, ROUTINE Micro Number: [id number] Test Status: Final Specimen Source: Urine Specimen [...] GENERAL ORDERABLES Final Result Performing Organization Address City/[facility]/ZIP Co de Phone Number [facility] [address] [place] [address] * Albumin Creatinine Ratio, Urine (05/26/2024 9:01 [...] URINE ORDERABLES Final Result Performing Organization Address [facility] Co de Phone Number [facility] [address] [place] [address] * TSH (05/26/2024 9:01 AM CDT) TSH 1.46 0.40 - 4.50 mIU/L [facility] Blood 05/26/2024 9:01 AM CDT 05/26/2024 9:02 AM CDT Narrative [facility] - 05/27/2024 1:42 AM CDT FASTING:YES FASTING: YES Jyoti ZULETA LAB BLOOD ORDERABLES Final Result Performing Organization Address City/[facility]/ZIP Co de Phone Number [facility] [address] [place] [address] * (ABNORMAL) Hemoglobin A1c (05/26/2024 9:01 AM CDT) Hgb A1C 6.0(H) <5.7 % of total Hgb [facility] Comment: For someone without known diabetes, [...] ZULETA LAB BLOOD ORDERABLES Final Result [facility] [address] [place] [address] * (ABNORMAL) Lipid panel (05/26/2024 9:01 AM CDT) [facility] Cholesterol 214(H) <200 mg/dL [facility] HDL 41(L) > OR = 50 mg/dL [facility] Triglycerides 244(H) <150 mg/dL [facility] Comment: If a non-fasting specimen was collected, consider repeat triglyceride testing on a fasting specimen if clinically indicated. Mayito et al. J. of Clin. Lipidol. 2015;9:129-169. LDL 134(H) mg/dL (calc) [facility] Comment: Reference range: <100 Desirable range <100 mg/dL for primary prevention; <70 mg/dL for patients with CHD or diabetic patients with > or = 2 CHD risk factors. LDL-C is now calculated using the Terrance-Ortega calculation, which is a validated novel method providing better accuracy than the Friedewald equation in the estimation of LDL-C. Terrance SS et al. KAJAL. 2013;310(19): 7636-3327 (http://education.UMicIt/faq/VOT157) Chol/HDL ratio 5.2(H) <5.0 (calc) [facility] Non-HDL, (LDL+VLDL) 173(H) <130 mg/dL (calc) [facility] mahmood [place] Comment: For patients with diabetes plus 1 major ASCVD risk factor, treating to a non-HDL-C goal of <100 mg/dL (LDL-C of <70 mg/dL) is considered a therapeutic option. Blood 05/26/2024 9:01 AM CDT 05/26/2024 9:02 AM CDT Narrative [facility] - 05/27/2024 1:42 AM CDT FASTING:YES FASTING: YES Jyoti ZULETA LAB BLOOD ORDERABLES Final Result [facility] [address] [place] [address] * (ABNORMAL) POCT urinalysis dipstick (05/12/2024 8:35 AM CDT) Pathologist [facility] Glucose, ur, POC 100.(A) Negative MG/DL Bilirubin, ur, POC Large Negative, Small, Moderate, Large Ketones, ur, POC Negative Negative Specific [place], POC 1.025 1.003 - 1.030 Blood, ur, POC Negative Negative pH, ur, POC 6.0 5.0 - 8.0 Protein, ur, POC 30.(A) Negative Urobilinogen, urine, POC 0.2 0.2 - 1.0 mg/dL Nitrite, ur, POC Negative Negative Leukocytes, ur, POC Negative Negative Lot Number [id number] Urine 05/12/2024 8:35 AM CDT us Jyoti ZULETA POINT OF CARE TEST ORDERAB LES Final Result * Urine culture Urine, clean voided (05/12/2024 8:31 AM CDT) Pathologist [facility] Urine culture [facility] Comment: CULTURE, URINE, ROUTINE Micro Number: [id number] Test Status: Final Specimen Source: Urine, clean catch Specimen Quality: Adequate Result: No Growth Urine, clean voided 05/12/2024 8:31 AM CDT 05/12/2024 11:44 PM CDT Jyoti ZULETA LAB MICROBIOLOGY - GENERAL ORDERABLES Final Result [facility] [address] [place] [address] * (ABNORMAL) Comprehensive metabolic panel (11/11/2023 7:08 AM CDT) [facility] Glucose 158(H) 65 - 99 mg/dL [facility] Comment: For someone without known diabetes, a glucose value >125 mg/dL indicates that they may have diabetes and this should be confirmed with a follow-up test. Fasting reference interval BUN 8 7 - 25 mg/dL [facility] Creatinine 0.66 0.60 - 1.00 mg/dL [facility] eGFR 93 > OR = 60 mL/min/1.7 3m2 [facility] BUN/creat ratio SEE NOTE: 6 - 22 (calc) [facility] Comment: Not Reported: BUN and Creatinine are within reference range. Sodium 139 135 - 146 mmol/L [facility] Potassium, pl 3.7 3.5 - 5.3 mmol/L [facility] Chloride 100 98 - 110 mmol/L [facility] CO2 28 20 - 32 mmol/L [facility] Calcium 9.2 8.6 - 10.4 mg/dL [facility] Protein, sr 6.9 6.1 - 8.1 g/dL [facility] Albumin 4.5 3.6 - 5.1 g/dL [facility] Pierre GLOBULIN 2.4 1.9 - 3.7 g/dL (calc) [facility] Alb/glob ratio 1.9 1.0 - 2.5 (calc) [facility] Bilirubin, total 0.6 0.2 - 1.2 mg/dL [facility] Alk phos 72 37 - 153 U/L [facility] AST 21 10 - 35 U/L [facility] ALT (SGPT) 18 6 - 29 U/L [facility] Blood 11/11/2023 7:08 AM CDT 11/11/2023 7:08 AM CDT Narrative [facility] - 11/12/2023 6:02 AM CDT FASTING:YES FASTING: YES Result [facility] Jyoti ZULETA LAB BLOOD ORDERABLES Final Result [facility] [address] [place] [address] * (ABNORMAL) Screening Mammogram Bilateral W Raj (10/02/2023 2:09 PM CDT) Anatomical Region Laterality Modality Breast Bilateral Mammography Impressions 10/02/2023 2:09 PM CDT Additional mammographic views and possible breast ultrasound recommended. BI-RADS Category 0: Incomplete. Needs additional imaging evaluation. Result [facility] Jyoti ZULETA IMG MAMMO PROCEDURES Final Result * DIABETES EYE EXAM (09/10/2023 8:33 AM CDT) Pathologist [facility] SCRIBED DIABETIC DILATED EYE EXAM Normal Historical Provider HEALTH MAINTENANCE Edited Result - Final * (ABNORMAL) Dexa Axial Skeleton Bone Density 1 or 2 Site (08/16/2022) SCRIBED DXA T-SCORE -1.8 Anatomical Region Laterality Modality Body N/A Radiographic Eunice ging Jyoti ZULETA IMG DXA PROCEDURES Final R esult * Stool DNA - Cologuard (05/07/2022 8:00 AM TAR MAN) Pathologist [facility] Stool DNA - Cologuard Negative Negative [employer] (CLIA #:[id number]) Comment: NEGATIVE TEST RESULT. A negative Cologuard [...] were screened with both Cologuard and colonoscopy. (Jbo Gómez et al, N Engl J Med 2014;370(14):0921-2241) The normal value (reference range) for this assay is negative. COLOGUARD RE-SCREENING RECOMMENDATION: Periodic colorectal cancer screening is an important part of preventive healthcare for asymptomatic individuals at average risk for colorectal cancer. Following a negative Cologuard result, the [place] [employer] and U.S. Multi-Society Task Force screening guidelines recommend a Cologuard re-screening interval of 3 years. References: [place] [employer] Guideline for Colorectal Cancer Screening: https://www.cancer.org/cancer/spzbl-iwxpkk-packal/fjfftgonx-toiilgdrj-tletyjz/ac s-rec ommendations.html.; Guy GARCIA, Que CALHOUN, Nitesh CartagenaK, Colorectal Cancer Screening: Recommendations for Physicians and Patients from the U.S. Multi-Society Task Force on Colorectal Cancer Screening , Am J Gastroenterology 2017; 112:8375-2131. TEST DESCRIPTION: Composite algorithmic analysis of stool [...] Gómez et al, N Engl J Med 2014;370(14):0411-0306.) Cologuard may produce a false negative or false positive result (no colorectal cancer or precancerous polyp present at colonoscopy follow up). A negative Cologuard test result does not guarantee the absence of CRC or advanced adenoma (pre-cancer). The current Cologuard screening interval is every 3 years. ([place] [employer] and [place] Multi-Society Task Force). Cologuard performance data in a 10,000 patient pivotal study using colonoscopy as the reference method can be accessed at the following location: www.[employer]/results. Additional description of the Cologuard test process, warnings and precautions can be found at [email or web address]. Stool 05/07/2022 8:00 AM TAR MAN 05/08/2022 1:53 PM TAR MAN Jyoti ZULETA LAB BODY FLUIDS AND STOOLS ORDERABLES Final Result [facility] (CLIA #:[id number]) [address] [address] * Colonoscopy (05/03/2011) Anatomical Region Laterality Modality Other Narrative 05/03/2011 Dr. Arceo -- 2011--->2021 Historical Provider ENDOSCOPY PROCEDURES Irina l Result from Last 3 Months or Most Recently Relevant to Health Maintenance Insurance [facility] Care Teams Vp Account Director Relationship Specialty Start Date End Date Jyoti Edge PA [address] [place] [address] PCP - General Internal Medicine 06/17/18
[2024-08-10 17:34] LABS: Basophils Absolute Auto 0.1 K/mm3 (0.0-0.1); Basophils Percent Auto 0.3 % (0.2-1.2); Hematocrit 40.1 % (37.0-47.0); Hemoglobin 12.6 g/dL (12.0-15.0); Immature Granulocyte Absolute 0.13 K/mm3 (0.00-0.031); Immature Granulocyte Percent A 0.7 % (0-0.5); Lymphocytes Percent Auto 2.8 % (18.3-44.2); Mean Corpuscular HGB Conc 31.4 g/dl (32-36); Mean Corpuscular Hemoglobin 31.1 pg (26-34); Mean Platelet Volume 10.7 fl (7.4-10.4); Monocytes Absolute Auto 0.2 K/mm3 (0.1-0.6); Monocytes Percent Auto 1.3 % (2.6-8.5); Neutrophils Absolute Auto 17.1 K/mm3 (1.3-6.7); Neutrophils Percent Auto 94.9 % (45.5-73.1); Nucleated Red Blood Cells Perc 0.2 % (0.0-0.2); Platelet Count Result 145 k/mm3 (150-375); Red Blood Count 4.05 M/mm3 (4.2-5.4); Red Cell Distribution Width 20.4 % (11.5-14.5); White Blood Count 18.1 K/mm3 (4.5-10.0)
[2024-08-10 17:44] LABS: Alanine Aminotransferase 30 U/L (6-35); Albumin Level 2.3 g/dL (3.5-5.1); Anion Gap 21 mmol/L (4-12); Aspartate Amino Transferase 54 U/L (14-36); Bilirubin,Total 0.9 mg/dL (0.2-1.3); Blood Urea Nitrogen 45 mg/dL (7-17); Calcium 8.8 mg/dL (8.4-10.2); Carbon Dioxide 8 mmol/L (22-30); Chloride 94 mmol/L (98-107); Estimated CRCL calculation 29 ml/min; Estimated Glomerular Filt Rate 54; Glucose 332 mg/dL (65-110); Potassium 5.1 mmol/L (3.4-5.0); Sodium 123 mmol/L (137-145); Total Protein 5.3 g/dL (6.3-8.2)
[2024-08-10 17:56] LABS: Lactic Acid Reflex 6.3 mmol/L (0.7-2.0)
[2024-08-10 18:05] LABS: Ovalocytes 1+; Platelet Estimate Adequate (Adequate); Schistocytes None Seen
--- NOTE | 2024-08-10 18:41 | PC.NURSE ---
Care coordination notified to speak with regarding hospice.
[2024-08-10 18:52] LABS: Alkaline Phosphatase 1763 U/L (38-126); Lipase < 10 U/L (23-300)
[2024-08-10 19:35] LABS: Reflex Lactic Acid Yes or No Add Lactic
[2024-08-10 20:22] LABS: Lactic Acid 6.4 mmol/L (0.7-2.0)
[2024-08-10] MEDS: MORPHINE 50 MG/NS 100ML (*CRX) 50 MG/100 ML BAG IV CONT (21:08)
[2024-08-10] MEDS: LORazepam INJ (*CRX) 2 MG/ML VIAL 0.5 MG IV PUSH (21:19)
--- NOTE | 2024-08-10 22:19 | PC.NURSE ---
pt at 2211. Two RN (Jennifer Field RN and myself) verified pt expiration. ERP notified.Tele-strip printed showing asystole. Pt present in room at time of .
--- NOTE | 2024-08-11 00:28 | PM.EVENT ---
Event Note Event Note Event Note: The patient was admitted for comfort measures. The patient in the ER prior to my evaluation. I did not see the patient.
== END 2024-08-10 23:12 | disposition expired ==
PROVIDERS: Emergency Medicine; Emergency Provider Emergency Medicine; PCP Family Medicine
DX: C25.9 Malignant neoplasm of pancreas, unspecified (principal); E87.1 Hypo-osmolality and hyponatremia; E87.5 Hyperkalemia; E11.9 Type 2 diabetes mellitus without complications; Z87.442 Personal history of urinary calculi
CPT/HCPCS: 36415; 71045; 80053; 83605; 83690; 85025; 96374; 96375; 96376; 99284; 99285; A9270; J1171; J2060; J2270; J2405